=== PATIENT | female | born 1930 | race Caucasian/White ===

== ENCOUNTER → 2016-09-28 | Outpatient (CLI) | payer OTHER ==
[~2016-09-28] MED LIST: ALEN70TA4 PO; ASPI81TA28 PO; CLOP1TAB5 PO; DIPH1CAP34 PO; DOXY100C2 PO; ERGO500011 PO; ESCI1TAB6 PO; LORA-741 PO; LRS10 PO; LXP10 PO; OXYC1TAB3 PO; PRAV10TA39 PO; TRAM-10 PO; TRAZ1TAB52 PO; VLTG EXT; VNTHFA/IN INH
--- NOTE | 2016-09-28 15:13 | DIAGNOSTIC IMAGING REPORT ---
CHEST 2 VIEWS ROUTINE CLINICAL HISTORY: Upper respiratory tract infection COMPARISON STUDY: January 27, 2016 FINDINGS: The cardiac and sternal contours are normal. The chest has an emphysematous configuration. There is a scoliosis. There is no focal pulmonary consolidation. There are no pleural effusions. There is no failure. There is been interval resolution of the previously identified upper lung zone opacities.[ IMPRESSION: No active disease in the chest. Electronically signed by: Good Pavon M.D. 09/28/2016 3:12 PM
== END | disposition home or self-care (01) ==
LOC: C.RADPV 14:47
PROVIDERS: ATTEND Internal Medicine Critical Care Medicine
DX: J06.9 Acute upper respiratory infection, unspecified (principal); R05 Cough

== ENCOUNTER 2017-04-24 13:04 | Emergency (ER) | payer OTHER ==
[~2017-04-24 13:04] MED LIST changes: -ASPI81TA28 PO; -CLOP1TAB5 PO; -DIPH1CAP34 PO; -DOXY100C2 PO; -ERGO500011 PO; -ESCI1TAB6 PO; -LXP10 PO; -OXYC1TAB3 PO; -VLTG EXT; -VNTHFA/IN INH
[2017-04-24 13:07] VITALS: TEMP 36.7; Ht 154.9 cm
[2017-04-24] MEDS ORDERED: ONDANSETRON INJ 2 MG/ML 2 ML VIAL IV STA ×2 (13:54→15:01)
[2017-04-24] MEDS ORDERED: SODIUM CHLORIDE 0.9% 1000ML 1,000 ML IV STA ×2 (13:54)
[2017-04-24 14:00] VITALS: O2SAT 98
[2017-04-24] MEDS ORDERED: MoRPHine SULFATE 4 MG/ML 1 ML CARP\\VIAL IV PRN (14:00)
[2017-04-24 14:02] LABS: BASO % 0.2 %; BASO ABS # 0.02 K/uL (0-0.2); COMPLETE YES; EOS % 0.1 %; HEMATOCRIT 34.8 % (37-47); IG% 0.1 %; LYMPH % 10.6 %; LYMPH ABS # 0.85 K/uL (1.2-3.4); MEAN CELL VOLUME 95.3 fL (80-100); MEAN CORPUSCULAR HEMOGLOBIN 31.8 pg (25-34); MEAN CORPUSCULAR HGB CONC 33.3 g/dl (32-36); MEAN PLATELET VOLUME 9.4 fL (7.4-10.4); MONO % 2.7 %; NEUT % 86.3 %; PLATELET COUNT 275 K/uL (130-400); RED BLOOD COUNT 3.65 M/uL (4.2-5.4); WHITE BLOOD COUNT 8.03 K/uL (4.8-10.8)
[2017-04-24 14:12] LABS: INR 1.1 (0.9-1.1); PARTIAL THROMBOPLASTIN RATIO 1.1; PROTHROMBIN TIME (PATIENT) 11.9 SECONDS (9.0-12.0)
[2017-04-24] MEDS ORDERED: ASPI81TA28 PO (14:13)
[2017-04-24] MEDS ORDERED: ESCI1TAB6 PO (14:13)
[2017-04-24] MEDS ORDERED: DIPH1CAP34 PO (14:13)
--- NOTE | 2017-04-24 14:23 | EMERGENCY ROOM VISIT NOTE ---
History Report prepared by Kit: Daya Gerardo Under the Supervision of: Dr. Anastacio Zhang D.O. First contact with patient: 13:47 Chief Complaint: PAIN (GENERALIZED) Stated Complaint: POSSIBLE HEART ATTACK History of Present Illness The patient is an 87 year old female who presents to the Emergency Room with complaints of worsening back pain starting 3 weeks ago. The patient has a history of back pain and has followed with her PCP for it. She was given pills that are not helping. She describes her pain as muscle spasms down the left side of her back. She is having nausea and vomiting which she does not usually get with her back pain. Her back has also been swelling up. She also had some pain across her chest earlier today. She currently feels a pressure on her chest. She also reports feeling more weakness than usual, dizziness, and SOB with moving around. She denies any pain or swelling in the legs or abdominal pain. She has been unable to eat because of her nausea and vomiting. She denies any recent falls. She has a history of aortic valve problems and has had an echo in the past. She was told that she might require surgery and was instructed to call a doctor if he developed any dizziness or other symptoms. She recently traveled to [place]. She has a history of DVT. She admits to tobacco use. She denies any alcohol use. She has had a cholecystectomy in the past. She denies any history of kidney stones. She has not had a stress test or heart catheterizations. Source of History: patient, family Onset: 3 weeks ago Position: back Quality: other (spasm) Timing: worsening Associated Symptoms: + chest pain, + SOB, + nausea, + vomiting, No abdominal pain Note: Pt reports back swelling. Pt denies pain/swelling in the legs. Review of Systems See HPI for pertinent positives & negatives. A total of 10 systems reviewed and were otherwise negative. Past Medical & Surgical Medical Problems: (1) Bleeding (2) H/O emphysema Family History Heart disease Social History Smoking Status: Current Every Day Smoker Marital Status: Occupation Status: retired Current/Historical Medications Scheduled Aspirin (Aspirin Ec), 81 MG PO DAILY Baclofen (Baclofen), 5 MG PO TID Diphenhydramine Hcl (Diphenhydramine Hcl), 50 MG PO HS Escitalopram Oxalate (Lexapro), 5 MG PO DAILY Lorazepam (Ativan), 0.5 MG PO BID Pravastatin Sodium (Pravastatin Sodium), 10 MG PO HS Scheduled PRN Oxycodone Immediate Rel Tab (Roxicodone Ir), 1-2 TAB PO Q4H PRN for Severe Pain Allergies Coded Allergies: Adhesives (Verified Allergy, Intermediate, red, irritated skin, 04/24/17) Physical Exam Vital Signs Date Time Temp Pulse Resp B/P (MAP) Pulse Ox O2 Delivery O2 Flow Rate FiO2 04/24/17 18:24 74 18 133/60 96 04/24/17 17:33 76 04/24/17 16:42 85 22 129/77 93 Room Air 04/24/17 15:00 68 18 180/60 98 Room Air 04/24/17 14:00 98 Room Air 04/24/17 13:59 66 22 146/57 98 Room Air 04/24/17 13:32 69 04/24/17 13:07 36.7 81 22 147/70 99 Room Air Physical Exam GENERAL: Patient is awake, alert, somewhat anxious appearing and uncomfortable. EYES: The conjunctivae are clear. The pupils are round and reactive. EARS, NOSE, MOUTH AND THROAT: The nose is without any evidence of any deformity. Mucous membranes are moist tongue is midline NECK: The neck is nontender and supple. RESPIRATORY: Lung sounds diminished throughout, tachypnea but no conversational dyspnea appreciated. CARDIOVASCULAR: Regular rate and rhythm noted to auscultation, systolic murmur appreciated. GASTROINTESTINAL: The abdomen is soft. Bowel sounds are present in all quadrants. Abdomen is nontender BACK: Left sided flank tenderness to percussion, no midline tenderness was noted, scoliosis noted with muscle spasms on the left. MUSCULOSKELETAL/EXTREMITIES: There is no evidence of gross deformity full range of motion is noted in the hips and shoulders SKIN: There is no obvious evidence of any rash. There are no petechiae, pallor or cyanosis noted. NEUROLOGIC: Patient is awake alert and oriented x3 strength is symmetric patellar reflexes are 2+ bilaterally Medical Decision & Procedures ER Provider Diagnostic Interpretation: X-ray results as stated below per interpretation by me and the radiologist. Radiology results as stated below per my review and radiologist interpretation: CHEST ONE VIEW PORTABLE CLINICAL HISTORY: Abdominal pain. COMPARISON STUDY: Chest radiograph September 28, 2016. FINDINGS: Lung volumes are normal. There is no pneumothorax or pleural effusion. There is no consolidation to suggest pneumonia. Cardiac size is normal. Mediastinal contours are normal. There is no evidence of pulmonary edema. IMPRESSION: No acute cardiopulmonary findings. Electronically signed by: Shiraz Jaquez M.D. 04/24/2017 3:00 PM Dictated Date/Time: 04/24/2017 2:[address] OF THE ABDOMEN AND PELVIS WITHOUT CONTRAST CLINICAL HISTORY: Left flank pain. COMPARISON STUDY: PET/CT January 15, 2016 and abdominal ultrasound June 12, 2016. TECHNIQUE: Axial images of the abdomen and pelvis were obtained without IV contrast. Images were reviewed in the axial, sagittal, and coronal planes. A dose lowering technique was utilized adhering to the principles of ALARA. FINDINGS: Evaluation of the abdomen and pelvis is significantly compromised given lack of contrast and paucity of intra-abdominal fat. Mild biliary ductal dilatation is unchanged from earlier studies and likely related to prior cholecystectomy. A 1.5 cm lesion arising from the upper pole of the left kidney measures above water attenuation but this is unchanged from earlier studies. This may reflect a hyperdense cyst. Low attenuation bilateral adrenal nodules are unchanged. These are benign. There is no hydronephrosis. No urinary calculi are identified. A small hyperdensity within the midpole of the right kidney is noted. This does not appear to represent a calculus. There is colonic diverticulosis. Evaluation for acute diverticulitis is difficult on this exam at there is no convincing evidence for acute diverticulitis. There is no free fluid. There is no abscess. There is moderate distention of the bladder. There are several old lumbar spine compression fractures. There is no pneumatosis, free air or portal venous gas. IMPRESSION: 1. No acute process identified within the abdomen or pelvis although evaluation is significantly compromised given lack of contrast and paucity of intra-abdominal fat. 2. Colonic diverticulosis. No evidence for acute diverticulitis although sensitivity is greatly diminished on this exam. No bowel obstruction. 3. Moderate distention of the bladder. Electronically signed by: Shiraz Jaquez M.D. 04/24/2017 4:00 PM Dictated Date/Time: 04/24/2017 3:47 PM Laboratory Results 04/24/17 13:20 Red Blood Count 3.65, Mean Corpuscular Volume 95.3, Mean Corpuscular Hemoglobin 31.8, Mean Corpuscular Hemoglobin Concent 33.3, Mean Platelet Volume 9.4, Neutrophils (%) (Auto) 86.3, Lymphocytes (%) (Auto) 10.6, Monocytes (%) (Auto) 2.7, Eosinophils (%) (Auto) 0.1, Basophils (%) (Auto) 0.2, Neutrophils # (Auto) 6.92, Lymphocytes # (Auto) 0.85, Monocytes # (Auto) 0.22, Eosinophils # (Auto) 0.01, Basophils # (Auto) 0.02 04/24/17 13:20 Test 04/24/17 13:20 04/24/17 16:36 White Blood Count 8.03 K/uL (4.8-10.8) Red Blood Count 3.65 M/uL (4.2-5.4) Hemoglobin 11.6 g/dL (12.0-16.0) Hematocrit 34.8 % (37-47) Mean Corpuscular Volume 95.3 fL (80-100) Mean Corpuscular Hemoglobin 31.8 pg (25-34) Mean Corpuscular Hemoglobin Concent 33.3 g/dl (32-36) Platelet Count 275 K/uL (130-400) Mean Platelet Volume 9.4 fL (7.4-10.4) Neutrophils (%) (Auto) 86.3 % Lymphocytes (%) (Auto) 10.6 % Monocytes (%) (Auto) 2.7 % Eosinophils (%) (Auto) 0.1 % Basophils (%) (Auto) 0.2 % Neutrophils # (Auto) 6.92 K/uL (1.4-6.5) Lymphocytes # (Auto) 0.85 K/uL (1.2-3.4) Monocytes # (Auto) 0.22 K/uL (0.11-0.59) Eosinophils # (Auto) 0.01 K/uL (0-0.5) Basophils # (Auto) 0.02 K/uL (0-0.2) RDW Standard Deviation 55.6 fL (36.4-46.3) RDW Coefficient of Variation 15.8 % (11.5-14.5) Immature Granulocyte % (Auto) 0.1 % Immature Granulocyte # (Auto) 0.01 K/uL (0.00-0.02) Prothrombin Time 11.9 SECONDS (9.0-12.0) Prothromb Time International Ratio 1.1 (0.9-1.1) Activated Partial Thromboplast Time 28.8 SECONDS (21.0-31.0) Partial Thromboplastin Ratio 1.1 Anion Gap 8.0 mmol/L (3-11) Estimated GFR () 52.3 Estimated GFR (Non- 45.1 BUN/Creatinine Ratio 12.6 (10-20) Calcium Level 9.4 mg/dl (8.5-10.1) Total Bilirubin 0.4 mg/dl (0.2-1) Direct Bilirubin 0.1 mg/dl (0-0.2) Aspartate Amino Transf (AST/SGOT) 25 U/L (15-37) Alanine Aminotransferase (ALT/SGPT) 22 U/L (12-78) Alkaline Phosphatase 78 U/L (45-117) Total Creatine Kinase 154 U/L (26-192) Creatine Kinase MB 3.8 ng/ml (0.5-3.6) Creatine Kinase MB Ratio 2.5 (0-3.0) Troponin I < 0.015 ng/ml (0-0.045) Total Protein 7.2 gm/dl (6.4-8.2) Albumin 4.0 gm/dl (3.4-5.0) Amylase Level 63 U/L (25-115) Lipase 173 U/L (73-393) Urine Color YELLOW Urine Appearance CLEAR (CLEAR) Urine pH 5.5 (4.5-7.5) Urine Specific [place] 1.012 (1.000-1.030) Urine Protein NEG (NEG) Urine Glucose (UA) NEG (NEG) Urine Ketones NEG (NEG) Urine Occult Blood 2+ (NEG) Urine Nitrite NEG (NEG) Urine Bilirubin NEG (NEG) Urine Urobilinogen NEG (NEG) Urine Leukocyte Esterase NEG (NEG) Urine WBC (Auto) 0 /hpf (0-5) Urine RBC (Auto) 0-4 /hpf (0-4) Urine Hyaline Casts (Auto) 0 /lpf (0-5) Urine Epithelial Cells (Auto) 0-5 /lpf (0-5) Urine Bacteria (Auto) NEG (NEG) Laboratory results per my review. Medications Administered Medications (Trade) Dose Ordered Sig/Archana Route Start Time Stop Time Status Last Admin Dose Admin Sodium Chloride 1,000 ml @ 999 mls/hr Q1H1M STAT IV 04/24/17 13:54 04/24/17 14:54 DC 04/24/17 14:12 999 MLS/HR Ondansetron HCl (Zofran Inj) 4 mg NOW STAT IV 04/24/17 13:54 04/24/17 13:55 DC 04/24/17 14:11 4 MG Morphine Sulfate (MoRPHine SULFATE INJ) 4 mg Q15M PRN IV 04/24/17 14:00 04/24/17 18:48 DC 04/24/17 14:11 4 MG Ondansetron HCl (Zofran Inj) 4 mg NOW STAT IV 04/24/17 15:01 04/24/17 15:03 DC 04/24/17 15:10 4 MG Oxycodone HCl (Roxicodone Immediate Rel 5MG Home Pack) 1 homepack UD ONCE PO 04/24/17 18:30 04/24/17 18:31 DC 04/24/17 18:30 1 HOMEPACK ECG Indication: chest pain Rate (beats per minute): 67 Rhythm: normal sinus Findings: Q waves (Anterior), ST depression (Lateral, Inferior), no ectopy Comparison ECG Date: 22-Jan-2016 Change: no significant change ED Course 1349: The patient was evaluated in room A2. A complete history and physical examination were performed. 1354: NSS 1000 ml @ 200 mls/hr IV, Zofran Inj 4 mg IV, NSS 1000 ml @ 999 mls/hr IV. 1400: Morphine Sulfate 4 mg IV. 1501: Zofran Inj 4 mg IV. 1620: I reevaluated the patient. She is resting comfortably. We are waiting on her urine. 1738: Upon reevaluation, the patient is resting comfortably. I discussed the results and treatment plan with her. She verbalized agreement of the treatment plan. She was discharged home. 1830: Oxycodone HCl 1 homepack PO. Medical Decision Prior records/ancillary studies reviewed. Triage Nursing notes reviewed. Additional history obtained from family. The patient's history was concerning for back pain. Differential diagnosis: Etiologies such as musculoskeletal, disc herniation, fracture, aortic disease, metastatic disease, cord compression, discitis, infection, renal colic, gastrointestinal, acute exacerbation of chronic back pain, sciatica, cauda equina, as well as others were entertained. The patient is an 87-year-old female who presented to the emergency department for an evaluation of pain. The patient has been noticing left flank pain which is associated with muscle spasm. She states that the pain comes into her chest. The patient states that she's had these symptoms for quite some time but they' ve worsened recently. The patient was not hypoxic or tachycardic. The patient's pain did not appear to be pleuritic in nature. I discussed the patient's laboratory radiographic studies with her. She doesn't a history of aortic stenosis. She had some EKG changes which could be subtle in nature and I do not feel they're related to ischemia rather I feel they're likely related to the patient's valvular heart disease. The patient was treated with IV fluids IV pain medicine and IV antiemetics. On subsequent reevaluation she was feeling much better. She was encouraged to rest and avoid any strenuous activity. She was also encouraged to continue all medications as prescribed. She was also encouraged to follow-up with her primary care physician as soon as possible return to the emergency department immediately if symptoms change worsen or the need arises. Medication Reconcilliation Current Medication List: was personally reviewed by me Blood Pressure Screening Patient's blood pressure: Normal blood pressure Blood pressure disposition: Did not require urgent referral Impression Primary Impression: Back pain Additional Impressions: Chest pain Heart murmur Scribe Attestation The scribe's documentation has been prepared under my direction and personally reviewed by me in its entirety. I confirm that the note above accurately reflects all work, treatment, procedures, and medical decision making performed by me. Departure Information Dispostion Home / Self-Care Prescriptions Oxycodone Immediate Rel Tab (ROXICODONE IR) 5 Mg Tab 1-2 TAB PO Q4H Y for Severe Pain, #24 TAB Prov: Anastacio Zhang, DO 04/24/17 Referrals Leonid Hayes MD Forms HOME CARE DOCUMENTATION FORM, IMPORTANT VISIT INFORMATION, WORK / SCHOOL INSTRUCTIONS Patient Instructions ED Low Back Pain Injury, My [facility] Additional Instructions Call your primary care physician as well as her primary care advocate to schedule a follow-up appointment. Rest and avoid any strenuous activity. Continue all medications as prescribed. Return to the emergency department immediately if symptoms change worsen or the need arises. Problem Qualifiers Primary Impression: Back pain Back pain location: thoracic back pain Chronicity: chronic Back pain laterality: left Qualified Codes: M54.6 - Pain in thoracic spine; G89.29 - Other chronic pain Additional Impressions: Chest pain Chest pain type: unspecified Qualified Codes: R07.9 - Chest pain, unspecified
[2017-04-24 14:25] LABS: ALT/SGPT 22 U/L (12-78); AMYLASE 63 U/L (25-115); AST/SGOT 25 U/L (15-37); BLOOD UREA NITROGEN 14 mg/dl (7-18); BUN/CREATININE RATIO 12.6 (10-20); CALCIUM 9.4 mg/dl (8.5-10.1); CARBON DIOXIDE 27 mmol/L (21-32); CHLORIDE 101 mmol/L (98-107); GLUCOSE 171 mg/dl (70-99); POTASSIUM 4.4 mmol/L (3.5-5.1); SODIUM 136 mmol/L (136-145)
[2017-04-24 14:31] LABS: ALKALINE PHOSPHATASE 78 U/L (45-117); CKMB/CK RATIO 2.5 (0-3.0)
--- NOTE | 2017-04-24 15:02 | DIAGNOSTIC IMAGING REPORT ---
CHEST ONE VIEW PORTABLE CLINICAL HISTORY: Abdominal pain. COMPARISON STUDY: Chest radiograph September 28, 2016. FINDINGS: Lung volumes are normal. There is no pneumothorax or pleural effusion. There is no consolidation to suggest pneumonia. Cardiac size is normal. Mediastinal contours are normal. There is no evidence of pulmonary edema. IMPRESSION: No acute cardiopulmonary findings. Electronically signed by: Shiraz Jaquez M.D. 04/24/2017 3:00 PM Dictated Date/Time: 04/24/2017 2:59 PM
--- NOTE | 2017-04-24 16:01 | DIAGNOSTIC IMAGING REPORT ---
CT OF THE ABDOMEN AND PELVIS WITHOUT CONTRAST CLINICAL HISTORY: Left flank pain. COMPARISON STUDY: PET/CT January 15, 2016 and abdominal ultrasound June 12, 2016. TECHNIQUE: Axial images of the abdomen and pelvis were obtained without IV contrast. Images were reviewed in the axial, sagittal, and coronal planes. A dose lowering technique was utilized adhering to the principles of ALARA. FINDINGS: Evaluation of the abdomen and pelvis is significantly compromised given lack of contrast and paucity of intra-abdominal fat. Mild biliary ductal dilatation is unchanged from earlier studies and likely related to prior cholecystectomy. A 1.5 cm lesion arising from the upper pole of the left kidney measures above water attenuation but this is unchanged from earlier studies. This may reflect a hyperdense cyst. Low attenuation bilateral adrenal nodules are unchanged. These are benign. There is no hydronephrosis. No urinary calculi are identified. A small hyperdensity within the midpole of the right kidney is noted. This does not appear to represent a calculus. There is colonic diverticulosis. Evaluation for acute diverticulitis is difficult on this exam at there is no convincing evidence for acute diverticulitis. There is no free fluid. There is no abscess. There is moderate distention of the bladder. There are several old lumbar spine compression fractures. There is no pneumatosis, free air or portal venous gas. IMPRESSION: 1. No acute process identified within the abdomen or pelvis although evaluation is significantly compromised given lack of contrast and paucity of intra-abdominal fat. 2. Colonic diverticulosis. No evidence for acute diverticulitis although sensitivity is greatly diminished on this exam. No bowel obstruction. 3. Moderate distention of the bladder. Electronically signed by: Shiraz Jaquez M.D. 04/24/2017 4:00 PM Dictated Date/Time: 04/24/2017 3:47 PM
[2017-04-24 16:56] LABS: URINE APPEARANCE CLEAR (CLEAR); URINE BILIRUBIN NEG (NEG); URINE COLOR YELLOW; URINE EPITHELIAL CELL AUTO 0-5 /lpf (0-5); URINE NITRITE NEG (NEG); URINE PH 5.5 (4.5-7.5); URINE SPECIFIC GRAVITY 1.012 (1.000-1.030); UROBILINOGEN NEG (NEG)
[2017-04-24 17:17] LABS: MANUAL MICROSCOPIC REQUIRED? NO; REVIEW REQ? NO
[2017-04-24] MEDS ORDERED: OXYC1TAB3 PO (17:49)
[2017-04-24 18:24] VITALS: BP 133/60; PULSE 74; O2SAT 96
[2017-04-24] MEDS ORDERED: OXYCODONE IR HOME PACK PO ONE (18:30)
== END 2017-04-24 18:26 | disposition home or self-care (01) ==
LOC: C.EDB 13:05 → C.EDA 18:26
DX: M54.6 Pain in thoracic spine (principal); G89.29 Other chronic pain; R07.9 Chest pain, unspecified; R11.2 Nausea with vomiting, unspecified; Z86.718 Personal history of other venous thrombosis and embolism; F17.210 Nicotine dependence, cigarettes, uncomplicated; Z82.49 Family history of ischemic heart disease and other diseases of the circulatory system; Z79.82 Long term (current) use of aspirin; Z79.899 Other long term (current) drug therapy

== ENCOUNTER → 2017-05-03 | Outpatient (CLI) | payer OTHER ==
[~2017-05-03] MED LIST changes: -ALEN70TA4 PO; +ASPI81TA28 PO; +DIPH1CAP34 PO; +ESCI1TAB6 PO; +OXYC1TAB3 PO; -TRAM-10 PO; -TRAZ1TAB52 PO
[2017-05-03 12:34] LABS: BASO % 0.8 %; BASO ABS # 0.05 K/uL (0-0.2); COMPLETE YES; EOS % 1.4 %; HEMATOCRIT 35.8 % (37-47); IG% 0.2 %; LYMPH % 28.8 %; LYMPH ABS # 1.86 K/uL (1.2-3.4); MEAN CELL VOLUME 96.5 fL (80-100); MEAN CORPUSCULAR HEMOGLOBIN 31.3 pg (25-34); MEAN CORPUSCULAR HGB CONC 32.4 g/dl (32-36); MEAN PLATELET VOLUME 9.9 fL (7.4-10.4); MONO % 8.7 %; NEUT % 60.1 %; PLATELET COUNT 303 K/uL (130-400); RED BLOOD COUNT 3.71 M/uL (4.2-5.4); WHITE BLOOD COUNT 6.46 K/uL (4.8-10.8)
== END | disposition home or self-care (01) ==
LOC: C.LABPVFM 09:32
PROVIDERS: ATTEND Nurse Practitioner Family
DX: D64.9 Anemia, unspecified (principal)

== ENCOUNTER → 2017-06-23 | Outpatient (CLI) | payer OTHER ==
[2017-06-23 12:25] LABS: BASO % 0.4 %; BASO ABS # 0.03 K/uL (0-0.2); COMPLETE YES; EOS % 0.5 %; HEMATOCRIT 31.6 % (37-47); IG% 0.3 %; LYMPH % 23.9 %; LYMPH ABS # 1.82 K/uL (1.2-3.4); MEAN CELL VOLUME 97.5 fL (80-100); MEAN CORPUSCULAR HEMOGLOBIN 30.9 pg (25-34); MEAN CORPUSCULAR HGB CONC 31.6 g/dl (32-36); MEAN PLATELET VOLUME 9.4 fL (7.4-10.4); MONO % 7.9 %; PLATELET COUNT 357 K/uL (130-400); RED BLOOD COUNT 3.24 M/uL (4.2-5.4); WHITE BLOOD COUNT 7.61 K/uL (4.8-10.8)
== END | disposition home or self-care (01) ==
LOC: C.LABPVFM 09:22
PROVIDERS: ATTEND Nurse Practitioner Family
DX: D64.9 Anemia, unspecified (principal)

== ENCOUNTER → 2017-06-25 | Outpatient (CLI) | payer OTHER ==
[2017-06-25 12:50] LABS: FERRITIN 10.8 ng/ml (8.0-388.0)
--- NOTE | 2017-06-30 13:01 | CODING QUERY MEDICAL NECESSITY ---
SUPPORTING DIAGNOSIS NEEDED Harpal CARLTON, A supporting diagnosis is required for the test/procedure performed on this patient in order for us to be reimbursed by the patient's insurance. Please provide a supporting diagnosis for the following test/procedure listed below next to the test name along with your signature. *If there is no additional diagnosis for this patient that would support the following test/procedure please document that below next to the test/procedure. Test(s)/Procedure(s) that require a supporting diagnosis: * ([id number]) B12 VITAMIN LEVEL DIAGNOSIS: * ([id number]) FOLATE LEVEL DIAGNOSIS: DATE OF SERVICE: 06/25/17 Provider Signature: Date: Thank you [facility] Information Management Once completed, please kindly fax back to [phone] For questions please call [phone]
== END | disposition home or self-care (01) ==
LOC: C.LABPVFM 08:17
PROVIDERS: ATTEND Nurse Practitioner Family
DX: D64.9 Anemia, unspecified (principal)

== ENCOUNTER → 2017-07-17 | Outpatient (CLI) | payer OTHER ==
[~2017-07-17] MED LIST changes: +CLOP1TAB5 PO; +DOXY100C2 PO; +ERGO500011 PO; +LXP10 PO; +VLTG EXT; +VNTHFA/IN INH
[2017-07-17 13:50] LABS: ALB/GLOB RATIO 1.1 (0.9-2); ALKALINE PHOSPHATASE 103 U/L (45-117); ALT/SGPT 23 U/L (12-78); AST/SGOT 23 U/L (15-37); BLOOD UREA NITROGEN 26 mg/dl (7-18); BUN/CREATININE RATIO 27.9 (10-20); CALCIUM 9.9 mg/dl (8.5-10.1); CARBON DIOXIDE 27 mmol/L (21-32); CHLORIDE 105 mmol/L (98-107); CREATININE 0.91 mg/dl (0.60-1.20); GLUCOSE 87 mg/dl (70-99); POTASSIUM 4.1 mmol/L (3.5-5.1); SODIUM 139 mmol/L (136-145)
== END | disposition home or self-care (01) ==
LOC: C.LABPVFM 09:09
PROVIDERS: ATTEND Orthopaedic Surgery
DX: M54.9 Dorsalgia, unspecified (principal); M89.9 Disorder of bone, unspecified; M94.9 Disorder of cartilage, unspecified

== ENCOUNTER → 2017-10-21 | Outpatient (CLI) | payer OTHER ==
[~2017-10-21] MED LIST changes: -ASPI81TA28 PO; -DIPH1CAP34 PO; -ESCI1TAB6 PO
[2017-10-21 12:47] LABS: BASO % 0.2 %; BASO ABS # 0.02 K/uL (0-0.2); EOS % 0.1 %; EOS ABS # 0.01 K/uL (0-0.5); HEMATOCRIT 28.6 % (37-47); HEMOGLOBIN 8.9 g/dL (12.0-16.0); IG# 0.02 K/uL (0.00-0.02); LYMPH % 9.1 %; LYMPH ABS # 0.96 K/uL (1.2-3.4); MEAN CELL VOLUME 89.1 fL (80-100); MEAN CORPUSCULAR HEMOGLOBIN 27.7 pg (25-34); MEAN CORPUSCULAR HGB CONC 31.1 g/dl (32-36); MONO % 3.7 %; MONO ABS # 0.39 K/uL (0.11-0.59); NEUT % 86.7 %; PLATELET COUNT 425 K/uL (130-400); RED CELL DISTRIBUTION WIDTH CV 19.1 % (11.5-14.5); RED CELL DISTRIBUTION WIDTH SD 57.4 fL (36.4-46.3)
[2017-10-21 13:24] LABS: ALBUMIN 3.4 gm/dl (3.4-5.0); ALT/SGPT 22 U/L (12-78); AST/SGOT 28 U/L (15-37); BLOOD UREA NITROGEN 15 mg/dl (7-18); CALCIUM 8.6 mg/dl (8.5-10.1); CARBON DIOXIDE 27 mmol/L (21-32); CREATININE 0.92 mg/dl (0.60-1.20); GLUCOSE 100 mg/dl (70-99); POTASSIUM 4.9 mmol/L (3.5-5.1); SODIUM 134 mmol/L (136-145)
[2017-10-21 13:41] LABS: ALKALINE PHOSPHATASE 126 U/L (45-117); TOTAL PROTEIN 6.8 gm/dl (6.4-8.2)
== END | disposition home or self-care (01) ==
LOC: C.LABPVFM 08:49
PROVIDERS: ATTEND Nurse Practitioner Family
DX: R63.4 Abnormal weight loss (principal); D64.9 Anemia, unspecified; R19.7 Diarrhea, unspecified; E87.6 Hypokalemia

== ENCOUNTER → 2017-10-21 | Outpatient (CLI) | payer OTHER ==
[~2017-10-21] MED LIST changes: +OPTIRAY 320 IV PRN
--- NOTE | 2017-10-21 16:25 | DIAGNOSTIC IMAGING REPORT ---
ABDOMEN AND PELVIS CT WITH IV CONTRAST CT DOSE: 226.34 mGy.cm HISTORY: Acute weight loss with diarrhea R63.4 Weight lossD64.9 DutleyW41.7 EtzkpfgvX91.6 HypokalemiaCTS7. History of prior appendectomy. TECHNIQUE: Multiaxial CT images of the abdomen and pelvis were performed following the use of intravenous contrast. 93 mL Optiray 320 IV contrast administered. A dose lowering technique was utilized adhering to the principles of ALARA. COMPARISON STUDY: CT abdomen and pelvis 04/24/2017. FINDINGS: Small right pleural effusion. Emphysema with subsegmental consolidative opacities of the dependent right lower lobe suggesting atelectasis. No pneumatosis or pneumoperitoneum. Imaged inferior cardiac chambers are mildly enlarged. Coronary arterial disease. Prior cholecystectomy. Mild intrahepatic and extrahepatic biliary ductal dilation is likely secondary to postcholecystectomy state. The common bile duct measures 9 mm transversely. Liver is otherwise unremarkable. Spleen, and pancreas are unremarkable. 2.0 x 1.5 cm left adrenal adenoma is unchanged. 1.4 x 1.47 m right adrenal adenoma is also unchanged. Subcentimeters low attenuating lesions of the kidneys bilaterally too small to characterize suggesting cyst measuring up to 5 mm. Renal vascular calcifications are present bilaterally. No renal calculi or hydronephrosis. Urinary bladder is mildly distended. Uterus and adnexa are unremarkable. Extensive atherosclerosis of the aorta with tortuosity. No pathologic adenopathy identified. Moderate sized duodenal diverticulum. No bowel obstruction identified. Fluid-filled nondilated loops of small bowel in the lower abdomen and pelvis. Moderate wall thickening of the rectum and distal sigmoid is noted. Mild colonic diverticulosis without definite diverticulitis. Fluid-filled loops of large bowel are also seen. Diastases recti. Soft tissues are unremarkable. The bones appear moderately demineralized and appear intact. Levoscoliosis of the lumbar spine. Calcification of the disc space is noted. IMPRESSION: 1. Moderate wall thickening of the rectum and distal sigmoid colon is suspicious for mild colitis/proctitis. Correlate with clinical exam and patient history. 2. Mild colonic diverticulosis without evidence of acute diverticulitis. 3. No bowel obstruction. 4. Small right pleural effusion with probable bibasilar atelectasis. 5. Additional findings as above. Electronically signed by: Reggie Patel M.D. 10/21/2017 4:23 PM Dictated Date/Time: 10/21/2017 3:53 PM
== END | disposition home or self-care (01) ==
LOC: C.CTS 15:17
PROVIDERS: ATTEND Nurse Practitioner
DX: E87.6 Hypokalemia (principal); D64.9 Anemia, unspecified; R63.4 Abnormal weight loss; R19.7 Diarrhea, unspecified

== ENCOUNTER → 2017-10-27 | Outpatient (CLI) | payer OTHER ==
[~2017-10-27] MED LIST changes: -OPTIRAY 320 IV PRN; -OXYC1TAB3 PO
[2017-10-27 12:35] LABS: BASO % 0.6 %; BASO ABS # 0.04 K/uL (0-0.2); EOS % 0.3 %; EOS ABS # 0.02 K/uL (0-0.5); HEMATOCRIT 30.3 % (37-47); HEMOGLOBIN 9.4 g/dL (12.0-16.0); IG# 0.01 K/uL (0.00-0.02); LYMPH % 23.6 %; LYMPH ABS # 1.53 K/uL (1.2-3.4); MEAN CELL VOLUME 92.4 fL (80-100); MEAN CORPUSCULAR HEMOGLOBIN 28.7 pg (25-34); MEAN PLATELET VOLUME 9.1 fL (7.4-10.4); MONO % 5.7 %; MONO ABS # 0.37 K/uL (0.11-0.59); NEUT % 69.6 %; NEUT ABS # 4.51 K/uL (1.4-6.5); PLATELET COUNT 394 K/uL (130-400); RED CELL DISTRIBUTION WIDTH CV 21.6 % (11.5-14.5); RED CELL DISTRIBUTION WIDTH SD 72.1 fL (36.4-46.3); WHITE BLOOD COUNT 6.48 K/uL (4.8-10.8)
[2017-10-27 13:15] LABS: ALBUMIN 3.5 gm/dl (3.4-5.0); ALT/SGPT 18 U/L (12-78); AST/SGOT 18 U/L (15-37); BLOOD UREA NITROGEN 9 mg/dl (7-18); CALCIUM 8.5 mg/dl (8.5-10.1); CARBON DIOXIDE 25 mmol/L (21-32); CREATININE 0.82 mg/dl (0.60-1.20); GLUCOSE 94 mg/dl (70-99); POTASSIUM 4.1 mmol/L (3.5-5.1); SODIUM 133 mmol/L (136-145)
[2017-10-27 13:18] LABS: ALKALINE PHOSPHATASE 94 U/L (45-117); TOTAL PROTEIN 6.9 gm/dl (6.4-8.2)
== END | disposition home or self-care (01) ==
LOC: C.LABPVFM 08:59
PROVIDERS: ATTEND Nurse Practitioner Family
DX: D64.9 Anemia, unspecified (principal); R19.7 Diarrhea, unspecified; E87.6 Hypokalemia

== ENCOUNTER → 2017-11-24 | Outpatient (CLI) | payer OTHER ==
[2017-11-24 12:18] LABS: BASO % 0.5 %; BASO ABS # 0.03 K/uL (0-0.2); EOS % 0.4 %; EOS ABS # 0.02 K/uL (0-0.5); HEMATOCRIT 36.2 % (37-47); HEMOGLOBIN 11.3 g/dL (12.0-16.0); IG# 0.01 K/uL (0.00-0.02); LYMPH % 25.6 %; LYMPH ABS # 1.42 K/uL (1.2-3.4); MEAN CELL VOLUME 93.3 fL (80-100); MEAN CORPUSCULAR HEMOGLOBIN 29.1 pg (25-34); MEAN CORPUSCULAR HGB CONC 31.2 g/dl (32-36); MEAN PLATELET VOLUME 9.7 fL (7.4-10.4); MONO % 7.6 %; MONO ABS # 0.42 K/uL (0.11-0.59); NEUT % 65.7 %; NEUT ABS # 3.65 K/uL (1.4-6.5); PLATELET COUNT 294 K/uL (130-400); RED CELL DISTRIBUTION WIDTH CV 20.3 % (11.5-14.5); RED CELL DISTRIBUTION WIDTH SD 68.8 fL (36.4-46.3); WHITE BLOOD COUNT 5.55 K/uL (4.8-10.8)
[2017-11-24 13:21] LABS: BLOOD UREA NITROGEN 22 mg/dl (7-18); CALCIUM 9.2 mg/dl (8.5-10.1); CARBON DIOXIDE 31 mmol/L (21-32); CREATININE 0.96 mg/dl (0.60-1.20); GLUCOSE 89 mg/dl (70-99); POTASSIUM 4.6 mmol/L (3.5-5.1); SODIUM 134 mmol/L (136-145)
== END | disposition home or self-care (01) ==
LOC: C.LABPVFM 08:56
PROVIDERS: ATTEND Nurse Practitioner Family
DX: D64.9 Anemia, unspecified (principal); E87.6 Hypokalemia

== ENCOUNTER → 2018-01-25 | Outpatient (CLI) | payer OTHER ==
[2018-01-25 13:00] LABS: BASO % 0.5 %; BASO ABS # 0.03 K/uL (0-0.2); EOS % 0.5 %; EOS ABS # 0.03 K/uL (0-0.5); HEMOGLOBIN 12.6 g/dL (12.0-16.0); IG# 0.01 K/uL (0.00-0.02); LYMPH ABS # 0.93 K/uL (1.2-3.4); MEAN CELL VOLUME 94.8 fL (80-100); MEAN CORPUSCULAR HEMOGLOBIN 31.4 pg (25-34); MEAN CORPUSCULAR HGB CONC 33.2 g/dl (32-36); MEAN PLATELET VOLUME 9.4 fL (7.4-10.4); MONO % 7.4 %; MONO ABS # 0.46 K/uL (0.11-0.59); NEUT % 76.4 %; NEUT ABS # 4.75 K/uL (1.4-6.5); PLATELET COUNT 253 K/uL (130-400); RED CELL DISTRIBUTION WIDTH CV 16.2 % (11.5-14.5); RED CELL DISTRIBUTION WIDTH SD 56.2 fL (36.4-46.3); WHITE BLOOD COUNT 6.21 K/uL (4.8-10.8)
[2018-01-25 14:07] LABS: BLOOD UREA NITROGEN 16 mg/dl (7-18); CALCIUM 9.2 mg/dl (8.5-10.1); CARBON DIOXIDE 28 mmol/L (21-32); CHOLESTEROL 208 mg/dl (0-200); CREATININE 0.86 mg/dl (0.60-1.20); GLUCOSE 95 mg/dl (70-99); POTASSIUM 4.4 mmol/L (3.5-5.1); SODIUM 134 mmol/L (136-145)
[2018-01-25 14:11] LABS: LDL CHOLESTEROL CALCULATED 115 mg/dl
== END | disposition home or self-care (01) ==
LOC: C.LABPVFM 09:16
PROVIDERS: ATTEND Nurse Practitioner
DX: N18.3 Chronic kidney disease, stage 3 (moderate) (principal); D50.9 Iron deficiency anemia, unspecified; E78.5 Hyperlipidemia, unspecified

== ENCOUNTER 2018-02-12 09:55 | Emergency (ER) | payer OTHER ==
[~2018-02-12] VITALS: Ht 162.6 cm; Wt 46.0 kg
[2018-02-12 10:05] VITALS: TEMP 36.5; Ht 162.6 cm; Wt 46.0 kg
[2018-02-12] MEDS ORDERED: CEPH500C PO (10:45)
[2018-02-12 11:22] VITALS: BP 151/58; PULSE 66; O2SAT 96
--- NOTE | 2018-02-12 16:20 | EMERGENCY ROOM VISIT NOTE ---
ED Visit Note First contact with patient: 10:10 I have personally evaluated this patient examined her and reviewed the pertinent labs and data. I have discussed the case with Jamar Sams, the physician bakery assistant and agree with the plan. Please refer to the PA note. This patient comes in with a wound in her left calf. On my exam, she appears comfortable and has neurologically neurovascular intact in the left lower extremity, the wound has been dressed. She has no systemic complaints we will put her on antibiotics have her have close follow-up with her regular doctor for recheck. She should return if: increasing pain, fever or chills, or any new problems or concerns
--- NOTE | 2018-02-17 09:31 | EMERGENCY ROOM VISIT NOTE ---
History First contact with patient: 10:10 Chief Complaint: LEG PAIN,LEG INJURY Stated Complaint: SORE ON LEG History of Present Illness The patient is a 87 year old white female who presents to the Emergency Room with complaints of a painful ulcer on the backside of her right lower leg. She states she scratched herself with her great toenail while in bed a few weeks ago. They have been trying to heal the wound at home but it is not improving. Her states he has been putting a cortisone cream on the area. She has significant pain due to the ulceration. They have not seen her PCP. She denies any fevers or chills. No other areas of involvement. Her accompanies her today. No other complaints. Review of Systems REVIEW OF SYSTEM: HEENT: No dizziness, visual problems, hearing loss, or tinnitus. There is no difficulty swallowing and no oral lesions are present. LYMPH: No adenopathy. PULMONARY: No cough, shortness of breath, sputum production or hemoptysis. CARDIOVASCULAR: No chest pain, palpitations, shortness of breath or peripheral edema. GASTROINTESTINAL: No diarrhea, constipation, nausea, vomiting, or abdominal pain. GENITOURINARY: No dysuria, frequency, urgency or nocturia. NEUROLOGIC: No weakness, muscle tenderness, epilepsy or history of neurological problems. MUSCULOSKELETAL: No history of joint tenderness/swelling. Positive history of arthritis and arthralgias. SKIN: No rashes or lesions. PSYCHIATRIC: No history of depression or mental illness. ENDOCRINE: No history of diabetes, thyroid disorders, or abnormal hair growth. Past Medical/Surgical History Medical Problems: (1) Bleeding (2) H/O emphysema (3) Stroke Previous surgeries: Cholecystectomy Medical problems heart disease, kidney disease. Family History Heart disease Parents are . Social History Smoking Status: Current Every Day Smoker Alcohol Use: none Drug Use: none Marital Status: Housing Status: lives with family Occupation Status: retired Current/Historical Medications Scheduled Albuterol Hfa (Ventolin Hfa), 1 PUFF INH DAILY Baclofen (Baclofen), 5 MG PO TID Cephalexin Monohydrate (Keflex), 500 MG PO TID Clopidogrel Bisulfate (Plavix), 1 TAB PO DAILY Diclofenac Sod (Voltaren), 1 APPLN EXT QID Ergocalciferol (Vitamin D 27324 Unit), 50,000 UNITS PO 2XWK Escitalopram Oxalate (Escitalopram Oxalate), 10 MG PO DAILY Lorazepam (Ativan), 0.5 MG PO BID Pravastatin Sodium (Pravastatin Sodium), 10 MG PO HS Allergies Coded Allergies: Adhesives (Verified Allergy, Intermediate, red, irritated skin, 02/12/18) Physical Exam Vital Signs Date Time Temp Pulse Resp B/P (MAP) Pulse Ox O2 Delivery O2 Flow Rate FiO2 02/12/18 11:22 66 151/58 96 02/12/18 10:05 36.5 74 18 146/65 100 Room Air Physical Exam General: Frail, elderly white female, in no acute distress. Laying on the bed. Alert and oriented. Skin: Warm and dry with fair turgor. No rashes. She has a large excoriation/ ulceration present on the posterior aspect of her right calf. It is approximately 1.5-2 cm in diameter. Granulation tissue is present at the base. It is approximately 5-7 mm deep. There was a white cream applied on the wound. This was removed with moistened gauze. No surrounding erythema. Areas nonfluctuant. No ecchymosis. The patient is not diaphoretic. No abrasions. No fluid is expressible. Musculoskeletal: Gross motor function of the lower extremities is intact. She has intact function at the hips, knees, and ankles. There is tenderness with palpation over the posterior right calf. Neurologic: Gross sensation is intact across the lower extremities by soft touch. Peripheral pulses are 2+. Medical Decision & Procedures Laboratory Results Wound culture was obtained. ED Course Patient and her were educated regarding today's findings. Conservative care measures were discussed. Wound culture was obtained. Wound was cleansed with sterile saline and sterile gauze. Cleanse daily with soap and water and cover with triple antibiotic ointment. She was placed on Keflex 500 mg 3 times a day 7 days. Follow-up with her PCP later this week. If the wound is not improving, follow-up with wound care center for further management. She will be notified of the culture results. Return to the ED for any acute worsening of symptoms. Tylenol as needed for any minor discomfort. Avoid picking at the wound or touching it with dirty hands. Patient was seen in conjunction with Dr. Jiang, who also evaluated the patient and concurred with today's diagnosis and treatment plan. Medical Decision Possibility of ulceration, skin infection, MRSA infection, and skin cancer were considered per [place] Drug Monitoring Program Search Results: no issues identified Impression Primary Impression: Open wound of skin Departure Information Dispostion Home / Self-Care Condition GOOD Prescriptions Cephalexin Monohydrate (Keflex) 500 Mg Cap 500 MG PO TID, #21 CAP Prov: Jamar Sams,P.A. 02/12/18 Forms HOME CARE DOCUMENTATION FORM, TYLENOL USE, IMPORTANT VISIT INFORMATION Patient Instructions My [facility] Additional Instructions Cleanse the wound daily with soap and water Keep it covered with triple antibiotic ointment and a gauze pad Follow-up with your PCP on Wednesday for reexamination If it is not improving, follow-up with the wound care center for further management Keflex 1 pill 3 times a day 7 days Tylenol every 6 hours as needed for discomfort Avoid scratching or picking at the wound Return to the ED for any fevers or significant increase in redness
--- NOTE | 2018-02-17 17:34 | Pharmacy Progress Note ---
ED Pharmacist Culture FollowUp Date of Service: February 17, 2018. Patient presented to ED a few days ago with an open wound on her lower leg that has been present for a few weeks. Patient was discharged on Keflex. Now culture results show morganella, E. Faecalis, Bacteroides Fragilis, and peptostreptococcus. Called patient regarding wound culture. She informed me that she did see her PCP Wednesday of this week and the wound dressing was changed and she was due to return 02/25. Prescription for augmentin 500mg BID and levofloxacin 250mg QD X 7 days called to [facility] in [place] at the patient's request. Also informed the patient to stop taking the keflex given the new antibiotics. The patient verbalized understanding. Case discussed with Dr. Jiang, who is the prescribing provider. Given the patient's age, weight, and renal status, antibiotics were dosed conservatively and it was stressed to the patient to follow up again with PCP as soon as possible. It appears a copy of results should have been sent to patient's PCP, but I will attempt to verify this tomorrow.
== END 2018-02-12 11:25 | disposition home or self-care (01) ==
LOC: C.EDB 09:56 → C.EDA 11:25
DX: S81.801A Unspecified open wound, right lower leg, initial encounter (principal); W26.8XXA Contact with other sharp object(s), not elsewhere classified, initial encounter; I51.9 Heart disease, unspecified; N18.9 Chronic kidney disease, unspecified; F17.200 Nicotine dependence, unspecified, uncomplicated; Z79.899 Other long term (current) drug therapy; Z91.048 Other nonmedicinal substance allergy status

== ENCOUNTER 2018-03-25 18:03 | Inpatient (IN) | payer OTHER ==
[~2018-03-25] VITALS: Ht 162.6 cm; Wt 48.7 kg
[~2018-03-25 18:03] MED LIST changes: +DOCU-94 PO; -DOXY100C2 PO; +DSY/150 PO; -ERGO500011 PO; +FAMO20TA9 PO; +MCRK20 PEG; +METO-157 PO; -VLTG EXT
[2018-03-25] MEDS ORDERED: ACET-1256 PO (18:24)
[2018-03-25] MEDS ORDERED: FSMD/70 PO (18:24)
[2018-03-25] MEDS ORDERED: SENN-61 PO (18:24)
[2018-03-25] MEDS ORDERED: ERGO500037 PO (18:24)
[2018-03-25] MEDS ORDERED: METOCLOPRAMIDE HCL INJ 5 MG/ML 2 ML VIAL IV. STA (18:30)
[2018-03-25] MEDS ORDERED: MoRPHine SULFATE 4 MG/ML 1 ML CARP\\VIAL IV STA (18:30)
[2018-03-25] MEDS ORDERED: SODIUM CHLORIDE 0.9% 500ML 500 ML IV STA (18:30)
--- NOTE | 2018-03-25 18:37 | EMERGENCY ROOM VISIT NOTE ---
History Report prepared by Kit: Lázaro Sultana Under the Supervision of: Dr. Vicente Cardona M.D. First contact with patient: 18:22 Chief Complaint: ABNORMAL LABS Stated Complaint: LOW SODIUM,DELUSIONS History of Present Illness The patient is an 87 year old female who presents to the Emergency Room with complaints of constant abnormal labs. The patient states she was evaluated in [facility] today for a reevaluation of her blood work. She reports she was sent here because her sodium was too low. She notes she has been dizzy, nauseous , and delusional all day. The patient reports she is seeing bows in her daughter 's hair and halos. The patient notes this is her third visit this week. She states she has been experiencing pain in her RLQ that radiates to her mid- abdomen and right flank. The patient reports she also had a bowel blockage. She notes for the past week she cannot eat anything, is losing weight, and constipated. The patient states she fell recently and does not know why or how. She denies shortness of breath. Source of History: patient Onset: today Quality: other (low sodium) Timing: constant Associated Symptoms: + nausea, No SOB Note: Associated symptoms: delusions, dizziness, unable to eat, losing weight, constipated Review of Systems See HPI for pertinent positives & negatives. A total of 10 systems reviewed and were otherwise negative. Past Medical & Surgical Medical Problems: (1) Bleeding (2) H/O emphysema (3) Kidney disease (4) Mesenteric artery stenosis (5) NSTEMI (non-ST elevation myocardial infarction) (6) Stroke Family History Heart disease Social History Smoking Status: Current Every Day Smoker Alcohol Use: none Drug Use: none Marital Status: Housing Status: lives with family Occupation Status: retired Current/Historical Medications Scheduled Alendronate/Cholecalciferol (Fosamax+D 70MG/2800 Iu), 1 TABLET PO WK Baclofen (Baclofen), 5 MG PO TID Clopidogrel Bisulfate (Clopidogrel), 75 MG PO DAILY Docusate Sodium (Colace), 1 CAP PO BID Ergocalciferol (Vitamin D 79553 Unit), 50,000 UNIT PO WK Escitalopram Oxalate (Escitalopram Oxalate), 10 MG PO DAILY Lorazepam (Ativan), 0.5 MG PO BID Potassium Chloride Microencaps (Potassium Chloride Er), 20 MEQ PO DAILY Pravastatin Sodium (Pravastatin Sodium), 10 MG PO HS Senna (Senokot), 1 TAB PO HS Trazodone HCl (Trazodone HCl), 75 MG PO HS Scheduled PRN Acetaminophen (Tylenol), 500 MG PO q4-6h PRN for Pain Albuterol Hfa (Ventolin Hfa), 1 PUFF INH DAILY PRN for SOB/Wheezing Famotidine (Famotidine), 20 MG PO BID PRN for REFLUX Metoclopramide (Reglan), 10 MG PO Q6H PRN for Nausea Allergies Coded Allergies: Adhesives (Verified Allergy, Intermediate, red, irritated skin, 03/21/18) Physical Exam Vital Signs Date Time Temp Pulse Resp B/P (MAP) Pulse Ox O2 Delivery O2 Flow Rate FiO2 03/25/18 23:04 89 03/25/18 22:44 82 20 180/67 96 Room Air 03/25/18 21:35 69 18 207/95 97 Room Air 03/25/18 19:35 64 18 207/71 100 Room Air 03/25/18 19:16 66 03/25/18 19:05 100 Room Air 03/25/18 18:50 100 Room Air 03/25/18 18:20 36.8 72 20 194/71 98 Room Air Physical Exam GENERAL: Awake, alert, cachectic-appearing, in no acute distress. Holding her right side. HENT: Normocephalic, atraumatic. Oropharynx unremarkable. EYES: Normal conjunctiva. Sclera non-icteric. NECK: Supple. No nuchal rigidity. FROM. No JVD. RESPIRATORY: Clear to auscultation. CARDIAC: Regular rate, normal rhythm. Extremities warm and well perfused. Pulses equal. ABDOMEN: Soft, non-distended. No tenderness to palpation. No rebound or guarding. No masses. RECTAL: Deferred. MUSCULOSKELETAL: Chest examination reveals no tenderness. The back is symmetrical on inspection without obvious abnormality. There is no CVA tenderness to palpation. No joint edema. LOWER EXTREMITIES: Calves are equal size bilaterally and non-tender. No edema. No discoloration. NEURO: Normal sensorium. No sensory or motor deficits noted. SKIN: No rash or jaundice noted. Medical Decision & Procedures ER Provider Diagnostic Interpretation: Radiology results as stated below per my review and radiologist interpretation: SINGLE VIEW CHEST CLINICAL HISTORY: Atypical chest pain. FINDINGS: An AP, portable, upright chest radiograph is compared to study dated 03/21/2018 and correlated with chest CT dated 01/10/2016. The examination is degraded by portable technique and patient rotation. The heart is enlarged and there is atherosclerotic calcification of the thoracic aorta. The pulmonary vasculature is noncongested. Emphysema and chronic interstitial thickening are similar to previous. No airspace consolidation or large pleural effusion is identified. No pneumothorax is seen. The bony thorax is grossly intact. Degenerative change and scoliosis are noted in the thoracic spine. Cholecystectomy clips are identified in the right upper quadrant. IMPRESSION: Cardiomegaly and emphysema with no acute cardiopulmonary abnormality. Electronically signed by: Anish Marquez M.D. 03/25/2018 7:32 PM Dictated Date/Time: 03/25/2018 7:[address] SCAN OF THE ABDOMEN AND PELVIS WITH IV CONTRAST CLINICAL HISTORY: Right lower quadrant abdominal pain. COMPARISON STUDY: Abdominal CT dated 03/21/2018 and 10/21/2017. TECHNIQUE: Following the IV administration of 116 cc of Optiray 320, CT scan of the abdomen and pelvis is performed from the lung bases to the proximal femora. Images are reviewed in the axial, sagittal, and coronal planes. IV contrast was administered without complication. A dose lowering technique was utilized adhering to the principles of ALARA. CT DOSE: 232.30 mGy.cm FINDINGS: Lung bases: The heart is mildly enlarged and there is trace pericardial fluid. There are coronary artery calcifications. There are small pleural effusions with bibasilar atelectasis. These have increased in size from 03/21/2018. There is a tiny hiatal hernia. Liver: The contrast-enhanced liver is normal in size, contour, and attenuation. There is moderate intrahepatic biliary ductal dilatation, similar to previous and likely related to previous cholecystectomy. The hepatic veins and portal veins are patent. Gallbladder: Surgically absent noting clips in the gallbladder fossa. Spleen: Normal in size and attenuation. Pancreas: Moderately atrophic and grossly unremarkable. Adrenal glands: Bilateral low-attenuation adrenal nodules are unchanged from previous and measure up to 2.0 cm. These likely represent adenomas but cannot be definitively characterized due to the presence of IV contrast. Kidneys: The contrast enhanced kidneys demonstrate cortical atrophy and are without hydronephrosis. The kidneys enhance symmetrically. Numerous subcentimeter cortical hypodensities likely represent cysts but are too small for definitive characterization. A punctate nonobstructing calculus is seen in the left upper pole. Abdominal vasculature: The abdominal aorta is normal in course and caliber noting advanced atherosclerotic calcification. There is high-grade stenosis to near complete occlusion of the superior mesenteric artery seen on image #107. Bowel: There is mild to moderate colonic diverticulosis without CT evidence of acute diverticulitis. There is moderate colonic fecal retention. No bowel obstruction is seen. The appendix is not identified and reported surgically absent. Peritoneum: There is no intraperitoneal free air or abdominal ascites. Lymphadenopathy: None. Pelvic viscera: The bladder, uterus, and adnexa are normal as visualized. Skeletal structures: The skeletal structures are osteopenic. There is moderate lumbosacral spondylosis and scoliosis. There is a moderate to severe compression fracture of T12. Paravertebral edema is noted at this level. Mild chronic superior endplate compression deformities are noted in the L4 and L5. No lytic or blastic lesions are seen. IMPRESSION: 1. There are no acute infectious or inflammatory findings in the abdomen or pelvis. 2. There is a moderate to severe compression fracture of T12. This is new from 10/21/2017 and appears acute to subacute. 3. There are small pleural effusions. These have increased in size from 03/21/2018. 4. Mild cardiac enlargement and advanced atherosclerotic disease. 5. Moderate constipation. 6. There is mild to moderate colonic diverticulosis without CT evidence of acute diverticulitis. 7. Additional findings as above. Electronically signed by: Anish Marquez M.D. 03/25/2018 10:26 PM Dictated Date/Time: 03/25/2018 10:15 PM Laboratory Results 03/25/18 19:10 Red Blood Count 3.78, Mean Corpuscular Volume 88.4, Mean Corpuscular Hemoglobin 30.2, Mean Corpuscular Hemoglobin Concent 34.1, Mean Platelet Volume 8.9, Neutrophils (%) (Auto) 79.5, Lymphocytes (%) (Auto) 13.2, Monocytes (%) (Auto) 6.9, Eosinophils (%) (Auto) 0.2, Basophils (%) (Auto) 0.0, Neutrophils # (Auto) 5.30, Lymphocytes # (Auto) 0.88, Monocytes # (Auto) 0.46, Eosinophils # (Auto) 0.01, Basophils # (Auto) 0.00 03/25/18 19:10 Test 03/25/18 18:55 03/25/18 19:10 Osmolality 261 mOsm/kg (280-300) White Blood Count 6.66 K/uL (4.8-10.8) Red Blood Count 3.78 M/uL (4.2-5.4) Hemoglobin 11.4 g/dL (12.0-16.0) Hematocrit 33.4 % (37-47) Mean Corpuscular Volume 88.4 fL (80-100) Mean Corpuscular Hemoglobin 30.2 pg (25-34) Mean Corpuscular Hemoglobin Concent 34.1 g/dl (32-36) Platelet Count 272 K/uL (130-400) Mean Platelet Volume 8.9 fL (7.4-10.4) Neutrophils (%) (Auto) 79.5 % Lymphocytes (%) (Auto) 13.2 % Monocytes (%) (Auto) 6.9 % Eosinophils (%) (Auto) 0.2 % Basophils (%) (Auto) 0.0 % Neutrophils # (Auto) 5.30 K/uL (1.4-6.5) Lymphocytes # (Auto) 0.88 K/uL (1.2-3.4) Monocytes # (Auto) 0.46 K/uL (0.11-0.59) Eosinophils # (Auto) 0.01 K/uL (0-0.5) Basophils # (Auto) 0.00 K/uL (0-0.2) RDW Standard Deviation 46.2 fL (36.4-46.3) RDW Coefficient of Variation 14.3 % (11.5-14.5) Immature Granulocyte % (Auto) 0.2 % Immature Granulocyte # (Auto) 0.01 K/uL (0.00-0.02) Anion Gap 10.0 mmol/L (3-11) Estimated GFR () 72.4 Estimated GFR (Non- 62.5 BUN/Creatinine Ratio 12.3 (10-20) Calcium Level 8.2 mg/dl (8.5-10.1) Total Bilirubin 0.4 mg/dl (0.2-1) Direct Bilirubin 0.1 mg/dl (0-0.2) Aspartate Amino Transf (AST/SGOT) 19 U/L (15-37) Alanine Aminotransferase (ALT/SGPT) 14 U/L (12-78) Alkaline Phosphatase 60 U/L (45-117) Total Creatine Kinase 63 U/L (26-192) Creatine Kinase MB 3.9 ng/ml (0.5-3.6) Creatine Kinase MB Ratio 6.2 (0-3.0) Total Protein 6.4 gm/dl (6.4-8.2) Albumin 3.3 gm/dl (3.4-5.0) Lipase 133 U/L (73-393) Labs reviewed by ED physician. Medications Administered Medications (Trade) Dose Ordered Sig/Archana Route Start Time Stop Time Status Last Admin Dose Admin Sodium Chloride 500 ml @ 999 mls/hr Q31M STAT IV 03/25/18 18:30 03/25/18 19:01 DC 03/25/18 18:59 999 MLS/HR Morphine Sulfate (MoRPHine SULFATE INJ) 4 mg NOW STAT IV 03/25/18 18:30 03/25/18 18:32 DC 03/25/18 18:59 4 MG Metoclopramide HCl (Reglan Inj) 10 mg NOW STAT IV. 03/25/18 18:30 03/25/18 18:32 DC 03/25/18 18:59 10 MG Ondansetron HCl (Zofran Inj) 4 mg NOW STAT IV 03/25/18 19:45 03/25/18 19:47 DC 03/25/18 19:56 4 MG Potassium Chloride (Klor-Con M10) 40 meq NOW STAT PO 03/25/18 19:58 03/25/18 19:59 DC 03/25/18 20:05 40 MEQ Potassium Chloride 100 ml @ 100 mls/hr NOW STAT IV 03/25/18 19:59 03/25/18 20:59 DC 03/25/18 20:05 100 MLS/HR Hydralazine HCl (HydrALAZINE INJ) 10 mg Q4H PRN IV. 03/25/18 21:45 04/24/18 21:44 03/25/18 21:53 10 MG Nitroglycerin (Nitroglycerin 2% Oint) 18 inch STK-MED ONCE EXT 03/25/18 21:43 03/25/18 21:44 DC 03/25/18 21:53 1 INCH ECG Per My Interpretation Indication: other (abnormal labs) Rate (beats per minute): 63 Rhythm: normal sinus Findings: left axis deviation, other (LVH, septal infarct) ED Course 1824: Past medical records reviewed. The patient was evaluated in room A09B. A complete history and physical examination was performed. 1915: I reevaluated the patient. She is feeling better and more comfortable. 2033: I discussed the patient's case with Dr. Yarbrough [facility] Hospitalist. The patient will be evaluated for further management and care. 2120: Upon reexamination the patient is resting. I discussed results and treatment plan with the patient. She verbalizes agreement and understanding. The patient will be evaluated for further management. Medical Decision Differential diagnosis: Etiologies such as appendicitis, diverticulitis, PUD, biliary pathology, UTI, pancreatitis, obstruction, mesenteric ischemia, aortic pathology, infections, inflammatory bowel disease, renal colic, as well as others were entertained. This is an 87-year-old that comes to the emergency department complaining of abdominal pain. Patient has been to the emergency department 3 times this week and has had hyponatremia on multiple visits. Her troponin is elevated today. She was given morphine as well as Reglan for the pain. Repeat examination revealed improvement in patient's symptoms. Patient's CAT scan is concerning for constipation as well as a T12 fracture. Due to the elevation of the troponin as well as the hyponatremia and the hypokalemia I did discuss the case with the hospitalist service who agreed to admit the patient. Patient's potassium was repleted here in the emergency department. Patient and family were in agreement with the treatment plan. Medication Reconcilliation Current Medication List: was personally reviewed by me Blood Pressure Screening Patient's blood pressure: Elevated blood pressure Monitored by hospitalist. Consults Time Called: 2021 Consulting Physician: Dr. Yarbrough [facility] Hospitalist Returned Call: 2033 I discussed the patient's case with Dr. Yarbrough [facility] Hospitalist. The patient will be evaluated for further management and care. Impression Primary Impression: Hyponatremia Additional Impression: Hypokalemia Scribe Attestation The scribe's documentation has been prepared under my direction and personally reviewed by me in its entirety. I confirm that the note above accurately reflects all work, treatment, procedures, and medical decision making performed by me. Departure Information Dispostion Being Evaluated By Hospitalist Referrals Angelika Rowan (PCP) Patient Instructions My [facility] Health Problem Qualifiers
[2018-03-25 19:30] LABS: EOS % 0.2 %; EOS ABS # 0.01 K/uL (0-0.5); HEMATOCRIT 33.4 % (37-47); HEMOGLOBIN 11.4 g/dL (12.0-16.0); IG# 0.01 K/uL (0.00-0.02); LYMPH % 13.2 %; LYMPH ABS # 0.88 K/uL (1.2-3.4); MEAN CELL VOLUME 88.4 fL (80-100); MEAN CORPUSCULAR HEMOGLOBIN 30.2 pg (25-34); MEAN CORPUSCULAR HGB CONC 34.1 g/dl (32-36); MEAN PLATELET VOLUME 8.9 fL (7.4-10.4); MONO % 6.9 %; MONO ABS # 0.46 K/uL (0.11-0.59); NEUT % 79.5 %; PLATELET COUNT 272 K/uL (130-400); RED CELL DISTRIBUTION WIDTH CV 14.3 % (11.5-14.5); RED CELL DISTRIBUTION WIDTH SD 46.2 fL (36.4-46.3); WHITE BLOOD COUNT 6.66 K/uL (4.8-10.8)
--- NOTE | 2018-03-25 19:34 | DIAGNOSTIC IMAGING REPORT ---
SINGLE VIEW CHEST CLINICAL HISTORY: Atypical chest pain. FINDINGS: An AP, portable, upright chest radiograph is compared to study dated 03/21/2018 and correlated with chest CT dated 01/10/2016. The examination is degraded by portable technique and patient rotation. The heart is enlarged and there is atherosclerotic calcification of the thoracic aorta. The pulmonary vasculature is noncongested. Emphysema and chronic interstitial thickening are similar to previous. No airspace consolidation or large pleural effusion is identified. No pneumothorax is seen. The bony thorax is grossly intact. Degenerative change and scoliosis are noted in the thoracic spine. Cholecystectomy clips are identified in the right upper quadrant. IMPRESSION: Cardiomegaly and emphysema with no acute cardiopulmonary abnormality. Electronically signed by: Anish Marquez M.D. 03/25/2018 7:32 PM Dictated Date/Time: 03/25/2018 7:31 PM
[2018-03-25] MEDS ORDERED: ONDANSETRON INJ 2 MG/ML 2 ML VIAL IV STA (19:45)
[2018-03-25 19:56] LABS: ALBUMIN 3.3 gm/dl (3.4-5.0); ALT/SGPT 14 U/L (12-78); AST/SGOT 19 U/L (15-37); BLOOD UREA NITROGEN 10 mg/dl (7-18); CALCIUM 8.2 mg/dl (8.5-10.1); CARBON DIOXIDE 28 mmol/L (21-32); CREATININE 0.84 mg/dl (0.60-1.20); GLUCOSE 149 mg/dl (70-99); LIPASE 133 U/L (73-393); POTASSIUM 2.8 mmol/L (3.5-5.1); SODIUM 125 mmol/L (136-145)
[2018-03-25] MEDS ORDERED: POTASSIUM CHLORIDE 10 MEQ TABCR PO STA (19:58)
[2018-03-25] MEDS ORDERED: POTASSIUM CHLR 10 MEQ / WTR 100 ML IV STA (19:59)
[2018-03-25 20:02] LABS: ALKALINE PHOSPHATASE 60 U/L (45-117); CKMB 3.9 ng/ml (0.5-3.6); TOTAL PROTEIN 6.4 gm/dl (6.4-8.2)
[2018-03-25] MEDS ORDERED: POTA20TA13 PO (20:19)
[2018-03-25] MEDS ORDERED: DOCU-94 PO (20:19)
[2018-03-25] MEDS ORDERED: PLV75 PO (20:19)
[2018-03-25] MEDS ORDERED: METO-157 PO (20:19)
[2018-03-25] MEDS ORDERED: DSY/150 PO (20:23)
[2018-03-25] MEDS ORDERED: FAMO1TAB47 PO (20:23)
[2018-03-25] MEDS ORDERED: OPTIRAY 320 IV PRN (21:00)
[2018-03-25] MEDS ORDERED: HydrALAZINE HCL 20 MG/ML VIAL ONE (21:41)
[2018-03-25] MEDS ORDERED: NITROGLYCERIN 2% OINTMENT 30GM TUBE EXT ONE (21:43)
[2018-03-25] MEDS: HydrALAZINE HCL 20 MG/ML VIAL IV. PRN (21:53)
--- NOTE | 2018-03-25 22:27 | DIAGNOSTIC IMAGING REPORT ---
CT SCAN OF THE ABDOMEN AND PELVIS WITH IV CONTRAST CLINICAL HISTORY: Right lower quadrant abdominal pain. COMPARISON STUDY: Abdominal CT dated 03/21/2018 and 10/21/2017. TECHNIQUE: Following the IV administration of 116 cc of Optiray 320, CT scan of the abdomen and pelvis is performed from the lung bases to the proximal femora. Images are reviewed in the axial, sagittal, and coronal planes. IV contrast was administered without complication. A dose lowering technique was utilized adhering to the principles of ALARA. CT DOSE: 232.30 mGy.cm FINDINGS: Lung bases: The heart is mildly enlarged and there is trace pericardial fluid. There are coronary artery calcifications. There are small pleural effusions with bibasilar atelectasis. These have increased in size from 03/21/2018. There is a tiny hiatal hernia. Liver: The contrast-enhanced liver is normal in size, contour, and attenuation. There is moderate intrahepatic biliary ductal dilatation, similar to previous and likely related to previous cholecystectomy. The hepatic veins and portal veins are patent. Gallbladder: Surgically absent noting clips in the gallbladder fossa. Spleen: Normal in size and attenuation. Pancreas: Moderately atrophic and grossly unremarkable. Adrenal glands: Bilateral low-attenuation adrenal nodules are unchanged from previous and measure up to 2.0 cm. These likely represent adenomas but cannot be definitively characterized due to the presence of IV contrast. Kidneys: The contrast enhanced kidneys demonstrate cortical atrophy and are without hydronephrosis. The kidneys enhance symmetrically. Numerous subcentimeter cortical hypodensities likely represent cysts but are too small for definitive characterization. A punctate nonobstructing calculus is seen in the left upper pole. Abdominal vasculature: The abdominal aorta is normal in course and caliber noting advanced atherosclerotic calcification. There is high-grade stenosis to near complete occlusion of the superior mesenteric artery seen on image #107. Bowel: There is mild to moderate colonic diverticulosis without CT evidence of acute diverticulitis. There is moderate colonic fecal retention. No bowel obstruction is seen. The appendix is not identified and reported surgically absent. Peritoneum: There is no intraperitoneal free air or abdominal ascites. Lymphadenopathy: None. Pelvic viscera: The bladder, uterus, and adnexa are normal as visualized. Skeletal structures: The skeletal structures are osteopenic. There is moderate lumbosacral spondylosis and scoliosis. There is a moderate to severe compression fracture of T12. Paravertebral edema is noted at this level. Mild chronic superior endplate compression deformities are noted in the L4 and L5. No lytic or blastic lesions are seen. IMPRESSION: 1. There are no acute infectious or inflammatory findings in the abdomen or pelvis. 2. There is a moderate to severe compression fracture of T12. This is new from 10/21/2017 and appears acute to subacute. 3. There are small pleural effusions. These have increased in size from 03/21/2018. 4. Mild cardiac enlargement and advanced atherosclerotic disease. 5. Moderate constipation. 6. There is mild to moderate colonic diverticulosis without CT evidence of acute diverticulitis. 7. Additional findings as above. Electronically signed by: Anish Marquez M.D. 03/25/2018 10:26 PM Dictated Date/Time: 03/25/2018 10:15 PM
--- NOTE | 2018-03-25 23:28 | History and Physical ---
History & Physical Date & Time of Service: Mar 25, 2018 at 23:28 Chief Complaint: Low Sodium,Delusions Primary Care Physician: Angelika Rowan History of Present Illness Source: patient, family, hospital records The patient is an 87-year-old female who was referred to the emergency department by her PCP at [facility] today after having abnormal laboratories in the outpatient setting. She and her daughter, report that she has been dizzy , nauseous and having hallucinations all day. She has also had intermittent pain in her epigastric area, and right lower quadrant. She has had decreased appetite over the past 48 hours, has not moved her bowels in that time, and feels that as though she is losing weight. She does report a history of falling recently, and does report some back pain, but does not know if the two are associated. 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 (19) Nausea & vomiting (20) NSTEMI (non-ST elevation myocardial infarction) (21) Open wound of skin (22) Open wound of skin (23) Ptosis (24) Scalp laceration (25) Stroke (26) Stroke-like symptoms Family History Heart disease Social History Smoking Status: Current Every Day Smoker Smokeless Tobacco Use: No Alcohol Use: none Drug Use: none Marital Status: Housing status: lives with family Occupational Status: retired Immunizations History of Influenza Vaccine: Unknown History of Tetanus Vaccine?: Unknown History of Pneumococcal: Unknown Allergies Coded Allergies: Adhesives (Verified Allergy, Intermediate, red, irritated skin, 03/21/18) Home Medications Scheduled Alendronate/Cholecalciferol (Fosamax+D 70MG/2800 Iu), 1 TABLET PO WK Baclofen (Baclofen), 5 MG PO TID Clopidogrel Bisulfate (Clopidogrel), 75 MG PO DAILY Docusate Sodium (Colace), 1 CAP PO BID Ergocalciferol (Vitamin D 35847 Unit), 50,000 UNIT PO WK Escitalopram Oxalate (Escitalopram Oxalate), 10 MG PO DAILY Lorazepam (Ativan), 0.5 MG PO BID Potassium Chloride Microencaps (Potassium Chloride Er), 20 MEQ PO DAILY Pravastatin Sodium (Pravastatin Sodium), 10 MG PO HS Senna (Senokot), 1 TAB PO HS Trazodone HCl (Trazodone HCl), 75 MG PO HS Scheduled PRN Acetaminophen (Tylenol), 500 MG PO q4-6h PRN for Pain Albuterol Hfa (Ventolin Hfa), 1 PUFF INH DAILY PRN for SOB/Wheezing Famotidine (Famotidine), 20 MG PO BID PRN for REFLUX Metoclopramide (Reglan), 10 MG PO Q6H PRN for Nausea Review of Systems The patient denies chest pain, palpitations, shortness of breath, dyspnea on exertion, cough, lower extremity swelling, sore throat, fevers, chills, sweats, vomiting, blood in urine or stool, dysuria, urinary frequency or urgency, loss of consciousness, rash, abnormal bruising or bleeding, focal weakness, numbness or tingling in arms or legs, generalized arthralgias or myalgias, neck pain, or night sweats. The review of systems is otherwise negative other than for that already noted above, and at least 10 systems have been reviewed. Physical Exam Vital Signs Date Time Temp Pulse Resp B/P (MAP) Pulse Ox O2 Delivery O2 Flow Rate FiO2 03/25/18 23:04 89 03/25/18 22:44 82 20 180/67 96 Room Air 03/25/18 21:35 69 18 207/95 97 Room Air 03/25/18 19:35 64 18 207/71 100 Room Air 03/25/18 19:16 66 03/25/18 19:05 100 Room Air 03/25/18 18:50 100 Room Air 03/25/18 18:20 36.8 72 20 194/71 98 Room Air The patient is awake, alert and oriented 3, normocephalic and atraumatic, lying in bed and in no acute distress. HEENT--PERRL, EOMI, mucous membranes and oropharynx dry. Neck--supple. No JVD. No bruits. Thyroid normal, trachea midline, no adenopathy. Heart--normal S1 and S2. No murmurs, rubs or gallops. Lungs--clear bilaterally, no respiratory distress, no accessory muscle use. Abdomen--normal bowel sounds and soft. Nontender. Nondistended, no hernias or masses, no organomegaly. Extremities--no cyanosis or clubbing. No edema. There are good distal pulses b/ l. Dermatologic--normal skin turgor, normal color, no abnormal lymph nodes, no rash. Neurologic--cranial nerves II through XII grossly intact. Rheumatologic--normal range of motion. Psychiatric--normal affect. Diagnostics Laboratory Results Results Past 24 Hours Test 03/25/18 18:55 03/25/18 19:10 Range/Units Osmolality 261 280-300 mOsm/kg White Blood Count 6.66 4.8-10.8 K/uL Red Blood Count 3.78 4.2-5.4 M/uL Hemoglobin 11.4 12.0-16.0 g/dL Hematocrit 33.4 37-47 % Mean Corpuscular Volume 88.4 80-100 fL Mean Corpuscular Hemoglobin 30.2 25-34 pg Mean Corpuscular Hemoglobin Concent 34.1 32-36 g/dl Platelet Count 272 130-400 K/uL Mean Platelet Volume 8.9 7.4-10.4 fL Neutrophils (%) (Auto) 79.5 % Lymphocytes (%) (Auto) 13.2 % Monocytes (%) (Auto) 6.9 % Eosinophils (%) (Auto) 0.2 % Basophils (%) (Auto) 0.0 % Neutrophils # (Auto) 5.30 1.4-6.5 K/uL Lymphocytes # (Auto) 0.88 1.2-3.4 K/uL Monocytes # (Auto) 0.46 0.11-0.59 K/uL Eosinophils # (Auto) 0.01 0-0.5 K/uL Basophils # (Auto) 0.00 0-0.2 K/uL RDW Standard Deviation 46.2 36.4-46.3 fL RDW Coefficient of Variation 14.3 11.5-14.5 % Immature Granulocyte % (Auto) 0.2 % Immature Granulocyte # (Auto) 0.01 0.00-0.02 K/uL Sodium Level 125 136-145 mmol/L Potassium Level 2.8 3.5-5.1 mmol/L Chloride Level 88 98-107 mmol/L Carbon Dioxide Level 28 21-32 mmol/L Anion Gap 10.0 3-11 mmol/L Blood Urea Nitrogen 10 7-18 mg/dl Creatinine 0.84 0.60-1.20 mg/dl Estimated GFR () 72.4 Estimated GFR (Non- 62.5 BUN/Creatinine Ratio 12.3 10-20 Random Glucose 149 70-99 mg/dl Calcium Level 8.2 8.5-10.1 mg/dl Total Bilirubin 0.4 0.2-1 mg/dl Direct Bilirubin 0.1 0-0.2 mg/dl Aspartate Amino Transf (AST/SGOT) 19 15-37 U/L Alanine Aminotransferase (ALT/SGPT) 14 12-78 U/L Alkaline Phosphatase 60 45-117 U/L Total Creatine Kinase 63 26-192 U/L Creatine Kinase MB 3.9 0.5-3.6 ng/ml Creatine Kinase MB Ratio 6.2 0-3.0 Troponin I 0.279 0-0.045 ng/ml Total Protein 6.4 6.4-8.2 gm/dl Albumin 3.3 3.4-5.0 gm/dl Lipase 133 73-393 U/L Diagnostic Radiology Patient Name: CAMERON RIVERA Unit Number: [id number] Dictated: 03/25/181930 Transcribed: 03/25/181930 EV Printed Date/Time: [~ rep prt dt]/[~ rep prt tm] [~ rep ct labl] - [~ rep ct ivnm] [facility] Radiology Department [place], [place] [id number] Dictated: 03/25/181930 Transcribed: 03/25/181930 EV Printed Date/Time: [~ rep prt dt]/[~ rep prt tm] [~ rep ct labl] - [~ rep ct ivnm] SINGLE VIEW CHEST CLINICAL HISTORY: Atypical chest pain. FINDINGS: An AP, portable, upright chest radiograph is compared to study dated 03/21/2018 and correlated with chest CT dated 01/10/2016. The examination is degraded by portable technique and patient rotation. The heart is enlarged and there is atherosclerotic calcification of the thoracic aorta. The pulmonary vasculature is noncongested. Emphysema and chronic interstitial thickening are similar to previous. No airspace consolidation or large pleural effusion is identified. No pneumothorax is seen. The bony thorax is grossly intact. Degenerative change and scoliosis are noted in the thoracic spine. Cholecystectomy clips are identified in the right upper quadrant. IMPRESSION: Cardiomegaly and emphysema with no acute cardiopulmonary abnormality. Electronically signed by: Anish Marquez M.D. 03/25/2018 7:32 PM Dictated Date/Time: 03/25/2018 7:31 PM The status of this report is Signed. Draft = Not yet reviewed or approved by Radiologist. Signed = Reviewed and approved by Radiologist. <AttendingPhy></AttendingPhy> <FamilyPhy>Angelika Rowan C.R.N.P.</FamilyPhy> <PrimaryPhy>Angelika Rowan C.R.N.P.</PrimaryPhy> <UnitNumber>[id number]</ UnitNumber> <VisitNumber>[id number]</VisitNumber> <PatientName>SUNILCAMERON MONTGOMERY</PatientName> <DateOfBirth>1930</DateOfBirth> <Location>[facility]</ Location> <ServiceDate>03/25/18</ServiceDate> <MNE>ESINDI</MNE> <OrderingPhy> Vicente Cardona MD</OrderingPhy> <OrderingPhyMNE>f rep ord dr brasher</ OrderingPhyMNE> <DictatingPhyMNE>f rep dict dr brasher</DictatingPhyMNE> <CCListMNE> f rep ct sameera</CCListMNE> <AdmittingPhyMNE>f pt admit dr brasher</AdmittingPhyMNE> < AttendingPhyMNE>f pt attend dr brasher</AttendingPhyMNE> <ConsultingPhyMNE>f pt consult dr brasher</ConsultingPhyMNE> <FamilyPhyMNE>f pt fam dr brasher</FamilyPhyMNE> <OtherPhyMNE>f pt other dr brasher</OtherPhyMNE> < PrimaryPhyMNE>f pt prim care dr brasher</PrimaryPhyMNE> <ReferringPhyMNE>f pt referring dr brasher</ReferringPhyMNE> Patient Name: CAMERON RIVERA Unit Number: [id number] Dictated: 03/25/182214 Transcribed: 03/25/182214 EV Printed Date/Time: [~ rep prt dt]/[~ rep prt tm] [~ rep ct labl] - [~ rep ct ivnm] [facility] Radiology Department [place] [id number] Dictated: 03/25/182214 Transcribed: 03/25/182214 EV Printed Date/Time: [~ rep prt dt]/[~ rep prt tm] [~ rep ct labl] - [~ rep ct ivnm] [~ rep ct add3]] CT SCAN OF THE ABDOMEN AND PELVIS WITH IV CONTRAST CLINICAL HISTORY: Right lower quadrant abdominal pain. COMPARISON STUDY: Abdominal CT dated 03/21/2018 and 10/21/2017. TECHNIQUE: Following the IV administration of 116 cc of Optiray 320, CT scan of the abdomen and pelvis is performed from the lung bases to the proximal femora. Images are reviewed in the axial, sagittal, and coronal planes. IV contrast was administered without complication. A dose lowering technique was utilized adhering to the principles of ALARA. CT DOSE: 232.30 mGy.cm FINDINGS: Lung bases: The heart is mildly enlarged and there is trace pericardial fluid. There are coronary artery calcifications. There are small pleural effusions with bibasilar atelectasis. These have increased in size from 03/21/2018. There is a tiny hiatal hernia. Liver: The contrast-enhanced liver is normal in size, contour, and attenuation. There is moderate intrahepatic biliary ductal dilatation, similar to previous and likely related to previous cholecystectomy. The hepatic veins and portal veins are patent. Gallbladder: Surgically absent noting clips in the gallbladder fossa. Spleen: Normal in size and attenuation. Pancreas: Moderately atrophic and grossly unremarkable. Adrenal glands: Bilateral low-attenuation adrenal nodules are unchanged from previous and measure up to 2.0 cm. These likely represent adenomas but cannot be definitively characterized due to the presence of IV contrast. Kidneys: The contrast enhanced kidneys demonstrate cortical atrophy and are without hydronephrosis. The kidneys enhance symmetrically. Numerous subcentimeter cortical hypodensities likely represent cysts but are too small for definitive characterization. A punctate nonobstructing calculus is seen in the left upper pole. Abdominal vasculature: The abdominal aorta is normal in course and caliber noting advanced atherosclerotic calcification. There is high-grade stenosis to near complete occlusion of the superior mesenteric artery seen on image #107. Bowel: There is mild to moderate colonic diverticulosis without CT evidence of acute diverticulitis. There is moderate colonic fecal retention. No bowel obstruction is seen. The appendix is not identified and reported surgically absent. Peritoneum: There is no intraperitoneal free air or abdominal ascites. Lymphadenopathy: None. Pelvic viscera: The bladder, uterus, and adnexa are normal as visualized. Skeletal structures: The skeletal structures are osteopenic. There is moderate lumbosacral spondylosis and scoliosis. There is a moderate to severe compression fracture of T12. Paravertebral edema is noted at this level. Mild chronic superior endplate compression deformities are noted in the L4 and L5. No lytic or blastic lesions are seen. IMPRESSION: 1. There are no acute infectious or inflammatory findings in the abdomen or pelvis. 2. There is a moderate to severe compression fracture of T12. This is new from 10/21/2017 and appears acute to subacute. 3. There are small pleural effusions. These have increased in size from 03/21/2018. 4. Mild cardiac enlargement and advanced atherosclerotic disease. 5. Moderate constipation. 6. There is mild to moderate colonic diverticulosis without CT evidence of acute diverticulitis. 7. Additional findings as above. Electronically signed by: Anish Marquez M.D. 03/25/2018 10:26 PM Dictated Date/Time: 03/25/2018 10:15 PM The status of this report is Signed. Draft = Not yet reviewed or approved by Radiologist. Signed = Reviewed and approved by Radiologist. <AttendingPhy></AttendingPhy> <FamilyPhy>Angelika RowanR.N.PHerbie</FamilyPhy> <PrimaryPhy>Angelika RowanR.N.P.</PrimaryPhy> <UnitNumber>[id number]</ UnitNumber> <VisitNumber>[id number]</VisitNumber> <PatientName>CAMERON RIVERA</PatientName> <DateOfBirth>1930</DateOfBirth> <Location>[facility]</ Location> <ServiceDate>03/25/18</ServiceDate> <MNE>ESINDI</MNE> <OrderingPhy> Vicente Cardona MD</OrderingPhy> <OrderingPhyMNE>f rep ord dr brasher</ OrderingPhyMNE> <DictatingPhyMNE>f rep dict dr brasher</DictatingPhyMNE> <CCListMNE> f rep ct mne</CCListMNE> <AdmittingPhyMNE>f pt admit dr brasher</AdmittingPhyMNE> < AttendingPhyMNE>f pt attend dr brasher</AttendingPhyMNE> <ConsultingPhyMNE>f pt consult dr brasher</ConsultingPhyMNE> <FamilyPhyMNE>f pt fam dr brasher</FamilyPhyMNE> <OtherPhyMNE>f pt other dr brasher</OtherPhyMNE> < PrimaryPhyMNE>f pt prim care dr brasher</PrimaryPhyMNE> <ReferringPhyMNE>f pt referring dr brasher</ReferringPhyMNE> EKG NICOLE CAMERON ID:[id number] 25-MAR-2018 18:49:39 [facility] Poor data quality, interpretation may be adversely affected Normal sinus rhythm Possible Left atrial enlargement Left axis deviation Left ventricular hypertrophy Anteroseptal infarct (cited on or before 29-JUL-2017) Abnormal ECG When compared with ECG of 21-MAR-2018 18:00, No significant change was found 25mm/s 10mm/mV 150Hz 8.0 SP2 12SL 241 SHAYNNE: 16 Referred by: Unconfirmed Vent. rate 63 BPM MA interval 116 ms QRS duration 88 ms QT/QTc 430/440 ms P-R-T axes 65 -43 -28 1930 (87 yr) Female Room: Loc:15 [employer] Architect:SALEEM AKINS Impression Assessment and Plan Chest pain with epigastric pain/NSTEMI/SMA stenosis-- The patient will be admitted to telemetry for serial cardiac enzymes, serial EKG's, cardiac rhythm monitoring and a 2-D echocardiogram with Dopplers. Continue clopidogrel 75 mg p.o. daily. Increase Klor-Con 20 mEq p.o. daily to 20 mEq p.o. twice daily. Heart rate is in the low 60s. Place on Nitropaste 1 inch anterior chest wall every 6 hours. Hydralazine 10 mg IV every 4 hours as needed systolic blood pressure above 160. Consult cardiology. Hyponatremia with hypoosmolality/hypokalemia-- Sodium had decreased from 137 on March 18, to 127 on March 21, to 129 on March 23 , to 128 on March 25, and now to 125 on March 25 in the ED. Serum osmolality in the ED today is 261. Urine osmolality is still pending at this time. Lab abnormalities may just be due to poor oral intake over the past several days. She will be n.p.o. overnight, and then repeat laboratories in the morning. At that point, will reassess for IV fluids at that time. She has received 40 mEq potassium orally in the ED, and will continue at 20 mEq p.o. twice daily. Hyperlipidemia-- Pravastatin 10 mg p.o. at bedtime. Anxiety-- Continue Lexapro 10 mg p.o. daily, lorazepam 0.5 mg p.o. twice daily, and trazodone 75 mg p.o. at bedtime. Muscle spasm-- Continue baclofen 5 mg p.o. 3 times daily. Advanced Directives Existing Advance Directive: Yes Existing Living Will: Yes Existing Power of Pole Framer: No Resuscitation Status VTE Prophylaxis Will order VTE Prophylaxis: Yes
[2018-03-25] MEDS ORDERED: SENNA 8.6 MG TAB PO ONE (23:29)
[2018-03-25] MEDS ORDERED: TRAZODONE HCL 50 MG TAB PO ONE (23:30)
[2018-03-25] MEDS ORDERED: ONDANSETRON INJ 2 MG/ML 2 ML VIAL IV PRN (23:45)
[2018-03-26] VITALS (11 sets, daily range): BP systolic 140–199; BP diastolic 53–76; PULSE 72–95; TEMP 36.3–37.4; O2SAT 96–99; Ht 162.6 cm; Wt 48.7 kg
[2018-03-26] MEDS: NITROGLYCERIN 2% OINTMENT 30GM TUBE EXT SCH ×4 (04:17→21:56)
[2018-03-26 07:25] LABS: BASO % 0.1 %; BASO ABS # 0.01 K/uL (0-0.2); EOS % 0.3 %; EOS ABS # 0.02 K/uL (0-0.5); HEMATOCRIT 34.1 % (37-47); HEMOGLOBIN 11.6 g/dL (12.0-16.0); IG# 0.01 K/uL (0.00-0.02); LYMPH ABS # 0.91 K/uL (1.2-3.4); MEAN CORPUSCULAR HEMOGLOBIN 30.3 pg (25-34); MEAN PLATELET VOLUME 8.7 fL (7.4-10.4); MONO ABS # 0.56 K/uL (0.11-0.59); NEUT % 78.5 %; NEUT ABS # 5.51 K/uL (1.4-6.5); PLATELET COUNT 305 K/uL (130-400); RED CELL DISTRIBUTION WIDTH CV 14.4 % (11.5-14.5); RED CELL DISTRIBUTION WIDTH SD 46.4 fL (36.4-46.3); WHITE BLOOD COUNT 7.02 K/uL (4.8-10.8)
[2018-03-26 07:36] LABS: PTT PATIENT 25.9 SECONDS (21.0-31.0)
[2018-03-26] MEDS: BACLOFEN 10 MG TAB PO SCH ×3 (07:38→19:47)
[2018-03-26] MEDS: DOCUSATE SODIUM 100 MG CAP PO SCH ×2 (07:39→19:44)
[2018-03-26] MEDS: ESCITALOPRAM OXALATE 10 MG TAB PO SCH (07:40)
[2018-03-26] MEDS: POTASSIUM CHLORIDE 20 MEQ TABCR PO SCH ×2 (07:40→19:46)
[2018-03-26] MEDS: CLOPIDOGREL BISULFATE 75 MG TAB PO SCH (07:40)
[2018-03-26] MEDS: HydrALAZINE HCL 20 MG/ML VIAL IV. PRN ×2 (07:43→15:18)
[2018-03-26 08:00] LABS: CALCIUM 8.4 mg/dl (8.5-10.1); CREATININE 0.6 mg/dl (0.60-1.20); POTASSIUM 3.8 mmol/L (3.5-5.1)
[2018-03-26] MEDS ORDERED: POTASSIUM CHLORIDE 20 MEQ TABCR PO SCH (09:00)
[2018-03-26] MEDS: ACETAMINOPHEN 325 MG TAB PO PRN (11:31)
[2018-03-26] MEDS: NSS + 20MEQ KCL 1000ML 1,000 ML IV SCH (12:12)
--- NOTE | 2018-03-26 14:51 | CARDIOLOGY CONSULTATION ---
DATE OF CONSULTATION: 03/26/2018 PERTINENT HISTORY: Mrs. Sanchez is an 87-year-old white female with a complex past medical history, admitted last evening with complaints of right lower quadrant pain and electrolyte abnormalities. This consultation was ordered as her troponin level was elevated. Of note, the patient typically follows with Dr. Hayes as an outpatient. The patient was in her usual state of health until approximately 2-3 days prior to presentation. She was complaining of intermittent right lower quadrant pain which occasionally radiated towards her epigastrium. She was experiencing anorexia and has not moved her bowels in 2 days. She presented to the [facility] office on Wednesday morning with the above complaints. Outpatient laboratories noted a significant hyponatremia and hypokalemia. She was directed to the Emergency Room for further care. The patient has not experienced any chest discomfort. She also denies dyspnea, syncope, presyncope, PND, orthopnea, palpitations, lower extremity edema, and claudication. The patient does carry a history of severe aortic stenosis with [id number] aortic insufficiency on an echocardiogram performed in July 2017. She also has evidence of mild LVH and diastolic dysfunction. The patient did suffer mechanical fall on March 18 sustaining a scalp laceration which required stapling. There was no loss of consciousness. Currently, the patient is resting comfortably in bed without complaints. PAST MEDICAL HISTORY: 1. Severe aortic stenosis - July 2017. 2. [id number] aortic insufficiency. 3. Mild LVH. 4. Diastolic dysfunction. 5. Hypercholesterolemia. 6. Peripheral vascular disease. 7. COPD. 8. Hyperglycemia. 9. Chronic renal failure. 10. History of T12 compression fracture. 11. Anxiety. 12. Osteoporosis. 13. Less than 50% bilateral internal carotid stenoses - July 2016. 14. Diverticulosis. MEDICATIONS: 1. Nitroglycerin 1 inch to chest wall q. 6 hours. 2. Plavix 75 mg per day. 3. Pravachol 10 mg at bedtime. 4. Hydralazine 10 mg IV q. 4 hours p.r.n. 4. Senokot 1 tablet at bedtime. 5. Desyrel 75 mg at bedtime. 6. Baclofen 5 mg t.i.d. 7. Colace 100 mg b.i.d. 8. Lexapro 10 mg daily. 9. Potassium 20 mEq b.i.d. ALLERGIES: ADHESIVES. SOCIAL HISTORY: The patient is , lives with her . Admits to smoking 5-6 cigarettes daily. Does not use alcohol. FAMILY HISTORY: Noncontributory. REVIEW OF SYSTEMS: A 10-point review of systems was negative except for that described above. PHYSICAL EXAMINATION: GENERAL: This is a thin, elderly white female appearing older than her stated age. VITAL SIGNS: Blood pressure is 165/76 with a regular pulse of 90. Respiratory rate is 20. The patient is afebrile at 36.3 degrees Celsius. Saturation 99% on room air. HEENT: Negative. NECK: Supple with delayed and prolonged carotid upstrokes. A transmitted murmur or bruit is noted bilaterally. CARDIOVASCULAR: Reveals a regular rhythm with a 2/6 crescendo decrescendo systolic murmur heard loudest at the base. S2 is not audible at the apex. No S3. LUNGS: Clear without rales, rhonchi, or wheezes. ABDOMEN: Soft with some tenderness to palpation in the right lower quadrant. EXTREMITIES: Reveal intact radial artery pulses bilaterally. There is no peripheral edema. LABORATORY DATA: CBC notes hemoglobin 11.4, hematocrit 33.4, white count 6.6, platelet count 272,000. Electrolytes note a sodium of 125, potassium 2.8, chloride 88, bicarb 28, BUN 10, creatinine 0.84, glucose 149. Initial troponin was 0.279 with followup values of 0.298 and 0.309. CK is 63 with an MB fraction of 3.9. EKG notes sinus rhythm with an old anteroseptal myocardial infarction and a nonspecific ST-T wave abnormality. Chest x-ray notes cardiomegaly and emphysematous changes. Abdominal CT significant for a high-grade SMA stenosis versus total occlusion. There is a T12 compression fracture. No mention of mesenteric ischemia. IMPRESSION: Mrs. Sanchez was admitted with abdominal complaints, electrolyte abnormalities, and a mildly elevated troponin. There are no acute EKG changes. I doubt that this represents a true myocardial ischemia. Would continue with conservative medical management. Her abdominal complaints along with a high-grade SMA stenosis could signal the possibility of mesenteric ischemia. PLAN: 1. Continue usual outpatient cardiac medications. 2. Continue to trend troponins as you are. 3. Review echocardiogram. 4. Further recommendations depending on her clinical course.
[2018-03-26] MEDS: TRAZODONE HCL 50 MG TAB PO SCH (19:45)
[2018-03-26] MEDS: PRAVASTATIN SOD 10 MG TAB PO SCH (19:48)
[2018-03-26] MEDS: SENNA 8.6 MG TAB PO SCH (19:50)
--- NOTE | 2018-03-26 21:42 | Progress Note ---
Subjective Date of Service: Mar 26, 2018. Subjective Pt evaluation today including: conversation w/ patient, physical exam, lab review, review of studies, review of inpatient medication list Pain: mild RLQ pain PO Intake: tolerating clears Voiding: no voiding problems reviewed imaging and labs from admission patient was sitting in chair first time I saw her c/o RLQ pain, says it had improved to 5 out of 10 compared to 9 out of 10 on admission abdomen was soft, slightly distended, she did not have an appetite checked lactic acid, it was 1.7 re-examined two hours later, patient laying in bed, abdomen soft, much less tender, said pain was 2 out of 10, active bowel sounds discussed the case with Dr. Sanz, patient did not c/o chest pain or pressure, no EKG changes he recommended following troponins and treating conservatively most recent troponin 0.2, trending down Problem List Medical Problems: (1) Back pain Status: Acute (2) Chest pain Status: Acute (3) Closed head injury Status: Acute (4) Compression fracture of fifth lumbar vertebra with routine healing Status: Acute (5) Compression fracture of fourth lumbar vertebra with routinehealing Status: Acute (6) Compression fracture of thoracic vertebra Status: Acute (7) Constipation Status: Acute (8) Dehydration Status: Acute (9) Encounter for smoking cessation counseling Status: Acute (10) Facial droop Status: Acute (11) Fall Status: Acute (12) Heart murmur Status: Acute (13) Hypokalemia Status: Acute (14) Hyponatremia Status: Acute (15) Hyponatremia Status: Acute (16) Nausea & vomiting Status: Acute (17) Open wound of skin Status: Acute (18) Ptosis Status: Acute (19) Scalp laceration Status: Acute (20) Stroke-like symptoms Status: Acute Review of Systems Abdomen: + pain (RLQ), + constipation, No nausea, No vomiting, No diarrhea, No GI bleeding Psychiatric: + problem reported (visual hallucinations, described seeing a disco ball, momentary, knew what she was seeing was not there) All Other Systems: Reviewed and Negative Medications Current Inpatient Medications Medications (Trade) Dose Ordered Sig/Archana Route Start Time Stop Time Status Last Admin Dose Admin Ioversol (Optiray 320) 100 ml UD PRN IV 03/25/18 21:00 03/29/18 20:59 Hydralazine HCl (HydrALAZINE INJ) 10 mg Q4H PRN IV. 03/25/18 21:45 04/24/18 21:44 03/26/18 15:18 10 MG Nitroglycerin (Nitroglycerin 2% Oint) 1 inch Q6H EXT 03/26/18 04:00 04/25/18 03:59 03/26/18 15:20 1 INCH Acetaminophen (Tylenol Tab) 650 mg Q4H PRN PO 03/25/18 23:30 04/24/18 23:29 03/26/18 11:31 650 MG Albuterol (Ventolin Hfa Inhaler) 200 puffs DAILY PRN INH 03/25/18 23:30 04/24/18 23:29 Baclofen (Lioresal Tab) 5 mg TID PO 03/26/18 09:00 04/25/18 08:59 03/26/18 19:47 5 MG Clopidogrel Bisulfate (plAVix TAB) 75 mg DAILY PO 03/26/18 09:00 04/25/18 08:59 03/26/18 07:40 75 MG Docusate Sodium (coLACE CAP) 100 mg BID PO 03/26/18 09:00 04/25/18 08:59 03/26/18 19:44 100 MG Escitalopram Oxalate (Lexapro Tab) 10 mg DAILY PO 03/26/18 09:00 04/25/18 08:59 03/26/18 07:40 10 MG Pravastatin Sodium (Pravachol Tab) 10 mg HS PO 03/26/18 21:00 04/25/18 20:59 03/26/18 19:48 10 MG Senna (Senokot Tab) 17.2 mg HS PO 03/26/18 21:00 04/25/18 20:59 03/26/18 19:50 17.2 MG Trazodone HCl (Desyrel Tab) 75 mg HS PO 03/26/18 21:00 04/25/18 20:59 03/26/18 19:45 75 MG Ondansetron HCl (Zofran Inj) 4 mg Q6H PRN IV 03/25/18 23:45 04/24/18 23:44 Potassium Chloride (Klor-Con Tab) 20 meq BID PO 03/26/18 09:00 04/25/18 08:59 03/26/18 19:46 20 MEQ Morphine Sulfate (MoRPHine SULFATE INJ) 4 mg Q4 PRN IV 03/26/18 11:45 04/09/18 11:44 Morphine Sulfate (MoRPHine SULFATE INJ) 2 mg Q4 PRN IV 03/26/18 11:45 04/09/18 11:44 Potassium Chloride/Sodium Chloride 1,000 ml @ 80 mls/hr [id number] IV 03/26/18 11:45 04/25/18 11:44 03/26/18 12:12 80 MLS/HR Objective Vital Signs Date Time Temp Pulse Resp B/P (MAP) Pulse Ox O2 Delivery O2 Flow Rate FiO2 03/26/18 20:37 97 Room Air 03/26/18 18:11 85 166/74 (104) 03/26/18 16:00 Room Air 03/26/18 15:47 36.7 77 18 169/67 (101) 97 Room Air 03/26/18 12:00 Room Air 03/26/18 11:58 36.3 90 20 165/76 (105) 99 Room Air 03/26/18 11:56 84 199/66 (110) 03/26/18 08:59 140/53 (82) 03/26/18 08:22 95 158/61 (93) 03/26/18 08:00 Room Air 03/26/18 07:35 36.9 72 18 183/69 (107) 96 Room Air 03/26/18 05:01 37.4 78 16 166/68 (100) 97 Room Air 03/26/18 04:00 97 Room Air 03/26/18 00:21 36.8 88 24 162/70 97 Room Air 03/25/18 23:59 81 20 158/67 94 03/25/18 23:04 89 03/25/18 22:44 82 20 180/67 96 Room Air 03/25/18 21:35 69 18 207/95 97 Room Air Physical Exam General Appearance: no apparent distress, + thin Eyes: normal inspection, EOMI, sclerae normal ENT: normal ENT inspection, hearing grossly normal, pharynx normal Neck: supple, no adenopathy, no JVD, trachea midline Respiratory/Chest: chest non-tender, lungs clear, normal breath sounds, no respiratory distress, no accessory muscle use Cardiovascular: regular rate, rhythm, no edema, no gallop, no JVD, no murmur Abdomen: normal bowel sounds, soft, no organomegaly, + tenderness (mild tenderness to deep palpation in RLQ, no rigidity, no rebound) Extremities: normal range of motion, non-tender, normal inspection, no pedal edema, no calf tenderness Neurologic/Psychiatric: 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 nml as tested, no motor/sensory deficits, alert, normal mood/affect, oriented x 3 Skin: normal color, warm/dry, no rash Laboratory Results Last 24 Hours Test 03/25/18 23:44 03/26/18 00:02 03/26/18 07:18 03/26/18 11:54 Urine Color YELLOW Urine Appearance CLEAR Urine pH 6.5 Urine Specific [place] 1.020 Urine Protein NEG Urine Glucose (UA) NEG Urine Ketones NEG Urine Occult Blood TRACE Urine Nitrite NEG Urine Bilirubin NEG Urine Urobilinogen NEG Urine Leukocyte Esterase NEG Urine WBC (Auto) 1-5 /hpf Urine RBC (Auto) 0-4 /hpf Urine Hyaline Casts (Auto) 0 /lpf Urine Epithelial Cells (Auto) 0-5 /lpf Urine Bacteria (Auto) NEG Troponin I 0.298 ng/ml 0.309 ng/ml White Blood Count 7.02 K/uL Red Blood Count 3.83 M/uL Hemoglobin 11.6 g/dL Hematocrit 34.1 % Mean Corpuscular Volume 89.0 fL Mean Corpuscular Hemoglobin 30.3 pg Mean Corpuscular Hemoglobin Concent 34.0 g/dl Platelet Count 305 K/uL Mean Platelet Volume 8.7 fL Neutrophils (%) (Auto) 78.5 % Lymphocytes (%) (Auto) 13.0 % Monocytes (%) (Auto) 8.0 % Eosinophils (%) (Auto) 0.3 % Basophils (%) (Auto) 0.1 % Neutrophils # (Auto) 5.51 K/uL Lymphocytes # (Auto) 0.91 K/uL Monocytes # (Auto) 0.56 K/uL Eosinophils # (Auto) 0.02 K/uL Basophils # (Auto) 0.01 K/uL RDW Standard Deviation 46.4 fL RDW Coefficient of Variation 14.4 % Immature Granulocyte % (Auto) 0.1 % Immature Granulocyte # (Auto) 0.01 K/uL Prothrombin Time 10.8 SECONDS Prothromb Time International Ratio 1.0 Activated Partial Thromboplast Time 25.9 SECONDS Partial Thromboplastin Ratio 1.0 Sodium Level 131 mmol/L Potassium Level 3.8 mmol/L Chloride Level 96 mmol/L Carbon Dioxide Level 28 mmol/L Anion Gap 6.0 mmol/L Blood Urea Nitrogen 7 mg/dl Creatinine 0.60 mg/dl Est Creatinine Clear Calc Drug Dose 48.7 ml/min Estimated GFR () 95.0 Estimated GFR (Non- 82.0 BUN/Creatinine Ratio 10.8 Random Glucose 117 mg/dl Calcium Level 8.4 mg/dl Magnesium Level 1.9 mg/dl Lactic Acid Level 1.7 mmol/L Test 03/26/18 15:36 Troponin I 0.205 ng/ml Assessment and Plan 87 yo female who presents with abdominal pain, poor oral intake for a few days, constipation, hyponatremia and generalized weakness - Abdominal pain, 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 less pain today, abdomen soft, active bowel sounds lactic acid only 1.7 pain only 2 out of 10, no narcotics required allow patient a light diet, monitor for worsening pain with eating will need to ask vascular surgery to evaluate SMA stenosis there was no evidence of bowel ischemia on CT scan - Elevated troponin type II NSTEMI, demand ischemia, poor intake, dehydrated, hypertension patient denies chest pain/pressure, no EKG changes troponin leilani to 0.3, trending down at 0.2 most recently continue Plavix, Nitro patch, Pravachol follow up echo results - Hyponatremia, due to dehydration very limited oral intake last few days due to abdominal pain Na up to 131 today, noted to have low plasma osmolality on admission treat with NSS + 20mEq of KCl at 80cc/hr - Hypokalemia: K up to 3.8 will stop BID KCl dosing after today continue 20mEq in fluids - Anxiety-- Continue Lexapro 10 mg p.o. daily, lorazepam 0.5 mg p.o. twice daily, and trazodone 75 mg p.o. at bedtime. Muscle spasm-- Continue baclofen 5 mg p.o. 3 times daily.
[2018-03-27] VITALS (10 sets, daily range): BP systolic 133–192; BP diastolic 65–84; PULSE 80–92; TEMP 36.7–37.5; O2SAT 91–97
[2018-03-27] MEDS: NSS + 20MEQ KCL 1000ML 1,000 ML IV SCH ×2 (00:19→11:37)
[2018-03-27] MEDS: HydrALAZINE HCL 20 MG/ML VIAL IV. PRN ×3 (00:22→20:06)
[2018-03-27] MEDS: NITROGLYCERIN 2% OINTMENT 30GM TUBE EXT SCH ×2 (04:52→10:38)
[2018-03-27 06:39] LABS: BASO % 0.1 %; BASO ABS # 0.01 K/uL (0-0.2); EOS % 0.4 %; EOS ABS # 0.03 K/uL (0-0.5); HEMOGLOBIN 11.6 g/dL (12.0-16.0); IG# 0.01 K/uL (0.00-0.02); LYMPH % 9.3 %; LYMPH ABS # 0.72 K/uL (1.2-3.4); MEAN CELL VOLUME 88.3 fL (80-100); MEAN CORPUSCULAR HEMOGLOBIN 30.1 pg (25-34); MEAN CORPUSCULAR HGB CONC 34.1 g/dl (32-36); MEAN PLATELET VOLUME 8.6 fL (7.4-10.4); MONO % 7.8 %; NEUT % 82.3 %; NEUT ABS # 6.36 K/uL (1.4-6.5); PLATELET COUNT 351 K/uL (130-400); RED CELL DISTRIBUTION WIDTH CV 14.8 % (11.5-14.5); RED CELL DISTRIBUTION WIDTH SD 47.7 fL (36.4-46.3); WHITE BLOOD COUNT 7.73 K/uL (4.8-10.8)
[2018-03-27 07:16] LABS: CALCIUM 8.3 mg/dl (8.5-10.1); CREATININE 0.56 mg/dl (0.60-1.20); POTASSIUM 4.1 mmol/L (3.5-5.1)
[2018-03-27] MEDS: BACLOFEN 10 MG TAB PO SCH ×3 (07:55→20:10)
[2018-03-27] MEDS: CLOPIDOGREL BISULFATE 75 MG TAB PO SCH (07:57)
[2018-03-27] MEDS: ESCITALOPRAM OXALATE 10 MG TAB PO SCH (07:57)
[2018-03-27] MEDS: DOCUSATE SODIUM 100 MG CAP PO SCH ×2 (07:57→20:09)
[2018-03-27] MEDS: HEPARIN SOD 5000 UNIT/0.5 ML CARP SQ SCH ×2 (07:59→20:13)
[2018-03-27] MEDS: NICOTINE 21 MG/24 HR TDSY TD SCH (08:00)
--- NOTE | 2018-03-27 12:19 | CARDIOLOGY PROGRESS NOTE ---
DATE: 03/27/2018 SUBJECTIVE: Ms. Sanchez is resting comfortably in bed without complaints of chest pain or dyspnea. Her abdominal discomfort has improved. She is anxious for hospital discharge. OBJECTIVE: VITAL SIGNS: Blood pressure is 130-160/70-85. Heart rate is 80-90 beats per minute. Respiratory rate is 16 and the patient is afebrile at 36.9 degrees Celsius. Saturation 91% on room air. NECK: Supple with full but delayed carotid upstrokes. A transmitted murmur is noted bilaterally. CARDIOVASCULAR: Reveals a regular rhythm with a 2/6 crescendo-decrescendo systolic murmur heard loudest at the base. S2 is not audible at the apex. LUNGS: Clear without rales, rhonchi, or wheezes. ABDOMEN: Soft and nontender. EXTREMITIES: Reveal intact radial artery pulses bilaterally. There is no peripheral edema. DATA: CBC notes hemoglobin 11.6, hematocrit 34.6, white count 7.73, platelet count 351,000. Electrolytes note a sodium of 132, potassium 4.1, chloride 100, bicarbonate 24, BUN 7, creatinine 0.56, glucose 118. pvc monitor notes sinus rhythm with an occasional PVC. EKG this morning notes sinus rhythm with a short DE interval. There is evidence of left ventricular hypertrophy and repolarization abnormality. An old septal infarction cannot be excluded. IMPRESSION AND PLAN: 1. Abdominal complaints -- may represent intestinal angina. 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 2. Mild troponin I elevation -- trending down. I do not suspect this represents significant myocardial ischemia, may be a supply-demand mismatch. 3. Severe aortic stenosis. 4. Kfuf-pi-vqncdcut aortic insufficiency. 5. Mild left ventricular hypertrophy -- diastolic dysfunction. 6. Hypercholesterolemia. 7. Peripheral vascular disease. 8. Chronic obstructive pulmonary disease. 9. Cerebrovascular disease -- with less than 50% stenosis in the internal carotid arteries bilaterally. This was noted in July 2016. 10. Disposition -- Stable for hospital discharge from a cardiac perspective.
--- NOTE | 2018-03-27 12:43 | Progress Note ---
Subjective Date of Service: Mar 27, 2018. Subjective Pt evaluation today including: conversation w/ patient, conversation w/ family , physical exam, lab review, conversation w/ interior design consultant, review of inpatient medication list Pain: abdominal pain after eating PO Intake: poor Voiding: no voiding problems patient did not have any pain this morning, but had not eaten breakfast ordered breakfast tray, low fiber and low fat developed RLQ abdominal pain shortly after eating, 4 out of 10 reviewed labs, Trop down to 0.2, lactic acid normal 1.1 CBC and BMP unremarkable removed martin from scalp at the bedside discussed Vascular surgery consultation with patient and her daughter, they were in agreement Problem List Medical Problems: (1) Back pain Status: Acute (2) Chest pain Status: Acute (3) Closed head injury Status: Acute (4) Compression fracture of fifth lumbar vertebra with routine healing Status: Acute (5) Compression fracture of fourth lumbar vertebra with routinehealing Status: Acute (6) Compression fracture of thoracic vertebra Status: Acute (7) Constipation Status: Acute (8) Dehydration Status: Acute (9) Encounter for smoking cessation counseling Status: Acute (10) Facial droop Status: Acute (11) Fall Status: Acute (12) Heart murmur Status: Acute (13) Hypokalemia Status: Acute (14) Hyponatremia Status: Acute (15) Hyponatremia Status: Acute (16) Nausea & vomiting Status: Acute (17) Open wound of skin Status: Acute (18) Ptosis Status: Acute (19) Scalp laceration Status: Acute (20) Stroke-like symptoms Status: Acute Review of Systems Constitutional: + weight loss, + weakness, + fatigue Abdomen: + pain (RLQ, triggered by eating) All Other Systems: Reviewed and Negative Medications Current Inpatient Medications Medications (Trade) Dose Ordered Sig/Archana Route Start Time Stop Time Status Last Admin Dose Admin Ioversol (Optiray 320) 100 ml UD PRN IV 03/25/18 21:00 03/29/18 20:59 Hydralazine HCl (HydrALAZINE INJ) 10 mg Q4H PRN IV. 03/25/18 21:45 04/24/18 21:44 03/27/18 05:43 10 MG Nitroglycerin (Nitroglycerin 2% Oint) 1 inch Q6H EXT 03/26/18 04:00 04/25/18 03:59 03/27/18 10:38 1 INCH Acetaminophen (Tylenol Tab) 650 mg Q4H PRN PO 03/25/18 23:30 04/24/18 23:29 03/26/18 11:31 650 MG Albuterol (Ventolin Hfa Inhaler) 200 puffs DAILY PRN INH 03/25/18 23:30 04/24/18 23:29 Baclofen (Lioresal Tab) 5 mg TID PO 03/26/18 09:00 04/25/18 08:59 03/27/18 07:55 5 MG Clopidogrel Bisulfate (plAVix TAB) 75 mg DAILY PO 03/26/18 09:00 04/25/18 08:59 03/27/18 07:57 75 MG Docusate Sodium (coLACE CAP) 100 mg BID PO 03/26/18 09:00 04/25/18 08:59 03/27/18 07:57 100 MG Escitalopram Oxalate (Lexapro Tab) 10 mg DAILY PO 03/26/18 09:00 04/25/18 08:59 03/27/18 07:57 10 MG Pravastatin Sodium (Pravachol Tab) 10 mg HS PO 03/26/18 21:00 04/25/18 20:59 03/26/18 19:48 10 MG Senna (Senokot Tab) 17.2 mg HS PO 03/26/18 21:00 04/25/18 20:59 03/26/18 19:50 17.2 MG Trazodone HCl (Desyrel Tab) 75 mg HS PO 03/26/18 21:00 04/25/18 20:59 03/26/18 19:45 75 MG Ondansetron HCl (Zofran Inj) 4 mg Q6H PRN IV 03/25/18 23:45 04/24/18 23:44 Morphine Sulfate (MoRPHine SULFATE INJ) 4 mg Q4 PRN IV 03/26/18 11:45 04/09/18 11:44 Morphine Sulfate (MoRPHine SULFATE INJ) 2 mg Q4 PRN IV 03/26/18 11:45 04/09/18 11:44 Potassium Chloride/Sodium Chloride 1,000 ml @ 80 mls/hr [id number] IV 03/26/18 11:45 04/25/18 11:44 03/27/18 11:37 80 MLS/HR Heparin Sodium (Porcine) (Heparin Sq 5000 Unit/0.5ml) 5,000 unit Q12 SQ 03/27/18 09:00 04/26/18 08:59 03/27/18 07:59 5,000 UNIT Nicotine (Nicoderm Cq 21MG Patch) 1 patch QAM TD 03/27/18 09:00 04/26/18 08:59 03/27/18 08:00 1 PATCH Miscellaneous (Remove Nicoderm Patch) 1 ea HS N/A 03/27/18 21:00 04/26/18 20:59 Objective Vital Signs Date Time Temp Pulse Resp B/P (MAP) Pulse Ox O2 Delivery O2 Flow Rate FiO2 03/27/18 12:00 Room Air 03/27/18 11:40 36.8 84 20 161/65 (97) 96 Room Air 03/27/18 10:53 91 157/69 (98) 03/27/18 08:00 Room Air 03/27/18 07:11 36.9 92 16 133/84 (100) 91 Room Air 03/27/18 06:02 152/68 (96) 03/27/18 04:59 37.3 80 19 192/67 (108) 96 Room Air 03/27/18 04:53 97 Room Air 03/27/18 00:05 36.7 85 18 182/77 (112) 96 Room Air 03/27/18 00:00 97 Room Air 03/26/18 20:37 97 Room Air 03/26/18 18:11 85 166/74 (104) 03/26/18 16:00 Room Air 03/26/18 15:47 36.7 77 18 169/67 (101) 97 Room Air Physical Exam General Appearance: no apparent distress, + thin Eyes: normal inspection, EOMI, sclerae normal ENT: normal ENT inspection, hearing grossly normal, pharynx normal Neck: supple, no adenopathy, no JVD, trachea midline Respiratory/Chest: chest non-tender, lungs clear, normal breath sounds, no respiratory distress, no accessory muscle use Cardiovascular: regular rate, rhythm, no edema, no gallop, no JVD, no murmur Abdomen: normal bowel sounds, soft, no organomegaly, + tenderness (mild TTP in RLQ, no rigidity, no rebound) Extremities: normal range of motion, non-tender, normal inspection, no pedal edema, no calf tenderness, normal capillary refill, pelvis stable Neurologic/Psychiatric: numerical control 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-XII nml as tested, no motor/sensory deficits, alert, normal mood/affect, oriented x 3 Skin: normal color, warm/dry, no rash Laboratory Results Last 24 Hours Test 03/26/18 15:36 03/27/18 06:26 Troponin I 0.205 ng/ml White Blood Count 7.73 K/uL Red Blood Count 3.85 M/uL Hemoglobin 11.6 g/dL Hematocrit 34.0 % Mean Corpuscular Volume 88.3 fL Mean Corpuscular Hemoglobin 30.1 pg Mean Corpuscular Hemoglobin Concent 34.1 g/dl Platelet Count 351 K/uL Mean Platelet Volume 8.6 fL Neutrophils (%) (Auto) 82.3 % Lymphocytes (%) (Auto) 9.3 % Monocytes (%) (Auto) 7.8 % Eosinophils (%) (Auto) 0.4 % Basophils (%) (Auto) 0.1 % Neutrophils # (Auto) 6.36 K/uL Lymphocytes # (Auto) 0.72 K/uL Monocytes # (Auto) 0.60 K/uL Eosinophils # (Auto) 0.03 K/uL Basophils # (Auto) 0.01 K/uL RDW Standard Deviation 47.7 fL RDW Coefficient of Variation 14.8 % Immature Granulocyte % (Auto) 0.1 % Immature Granulocyte # (Auto) 0.01 K/uL Sodium Level 132 mmol/L Potassium Level 4.1 mmol/L Chloride Level 100 mmol/L Carbon Dioxide Level 24 mmol/L Anion Gap 8.0 mmol/L Blood Urea Nitrogen 7 mg/dl Creatinine 0.56 mg/dl Est Creatinine Clear Calc Drug Dose 52.1 ml/min Estimated GFR () 97.2 Estimated GFR (Non- 83.8 BUN/Creatinine Ratio 12.3 Random Glucose 118 mg/dl Lactic Acid Level 1.1 mmol/L Calcium Level 8.3 mg/dl Assessment and Plan 87 yo female who presents with abdominal pain, poor oral intake for a few days, constipation, hyponatremia and generalized weakness - Abdominal pain, 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 lactic acid normal at 1.1, there was no evidence of bowel ischemia on CT scan will need to ask vascular surgery to evaluate SMA stenosis, consult placed for tomorrow - Elevated troponin type II NSTEMI, demand ischemia, poor intake, dehydrated, hypertension patient denies chest pain/pressure, no EKG changes troponin leilani to 0.3, trending down at 0.2 yesterday continue Plavix, Nitro patch, Pravachol no further work up per cardiology, can be discharged from cardiac perspective - Hyponatremia, due to dehydration very limited oral intake last few days due to abdominal pain Na up slightly to 132 today, noted to have low plasma osmolality on admission treat with NSS + 20mEq of KCl at 80cc/hr continue fluids today since PO intake still suboptimal - Hypokalemia: K up to 4.1 continue 20mEq in fluids, repeat level tomorrow - Anxiety-- Continue Lexapro 10 mg p.o. daily, lorazepam 0.5 mg p.o. twice daily, and trazodone 75 mg p.o. at bedtime. Muscle spasm-- Continue baclofen 5 mg p.o. 3 times daily. recent fall with scalp laceration: martin removed at bedside today Plan: follow up vascular surgery consultation tomorrow, repeat labs in AM
[2018-03-27] MEDS: TRAZODONE HCL 50 MG TAB PO SCH (20:10)
[2018-03-27] MEDS: PRAVASTATIN SOD 10 MG TAB PO SCH (20:11)
[2018-03-27] MEDS: SENNA 8.6 MG TAB PO SCH (20:11)
[2018-03-28] VITALS (9 sets, daily range): BP systolic 130–192; BP diastolic 50–80; PULSE 70–88; TEMP 36.6–37.4; O2SAT 95–97
[2018-03-28] MEDS: HydrALAZINE HCL 20 MG/ML VIAL IV. PRN ×3 (00:03→21:55)
[2018-03-28] MEDS: MoRPHine SULFATE 4 MG/ML 1 ML CARP\\VIAL IV PRN (00:08)
[2018-03-28] MEDS: NSS + 20MEQ KCL 1000ML 1,000 ML IV SCH ×2 (00:12→12:17)
[2018-03-28 06:52] LABS: BASO % 0.3 %; BASO ABS # 0.02 K/uL (0-0.2); EOS % 0.6 %; EOS ABS # 0.04 K/uL (0-0.5); HEMATOCRIT 35.8 % (37-47); HEMOGLOBIN 11.9 g/dL (12.0-16.0); IG# 0.02 K/uL (0.00-0.02); LYMPH % 23.4 %; LYMPH ABS # 1.59 K/uL (1.2-3.4); MEAN CELL VOLUME 90.9 fL (80-100); MEAN CORPUSCULAR HEMOGLOBIN 30.2 pg (25-34); MEAN CORPUSCULAR HGB CONC 33.2 g/dl (32-36); MEAN PLATELET VOLUME 8.7 fL (7.4-10.4); MONO % 7.8 %; MONO ABS # 0.53 K/uL (0.11-0.59); NEUT % 67.6 %; NEUT ABS # 4.59 K/uL (1.4-6.5); PLATELET COUNT 357 K/uL (130-400); RED CELL DISTRIBUTION WIDTH SD 49.5 fL (36.4-46.3); WHITE BLOOD COUNT 6.79 K/uL (4.8-10.8)
[2018-03-28 07:18] LABS: CALCIUM 8.6 mg/dl (8.5-10.1); CREATININE 0.62 mg/dl (0.60-1.20); POTASSIUM 4.7 mmol/L (3.5-5.1)
[2018-03-28] MEDS: DOCUSATE SODIUM 100 MG CAP PO SCH ×2 (08:53→21:22)
[2018-03-28] MEDS: ESCITALOPRAM OXALATE 10 MG TAB PO SCH (08:53)
[2018-03-28] MEDS: NICOTINE 21 MG/24 HR TDSY TD SCH (08:53)
[2018-03-28] MEDS: CLOPIDOGREL BISULFATE 75 MG TAB PO SCH (08:53)
[2018-03-28] MEDS: BACLOFEN 10 MG TAB PO SCH ×3 (08:53→21:22)
[2018-03-28] MEDS: HEPARIN SOD 5000 UNIT/0.5 ML CARP SQ SCH ×2 (08:54→21:25)
--- NOTE | 2018-03-28 09:44 | Surgery Consultation ---
Consultation Date of Service Mar 28, 2018. Chief Complaint mesenteric artery stenosis noted on CT History of Present Illness The patient is a 87 year old female with multiple medical problems, admitted after a fall at home and generalized illness, seen in consultation today for incidental finding of mesenteric art stenosis noted on CT scan. Pt admits malaise and nausea at home. States she had some RLQ abd pain for about 15 minutes, but that resolved and has not recurred. Does not typically have abd pain at home after eating. Eats 3 normal sized meals daily. Feels she has lost some weight, but unable to tell how much. Denies VILLALPANDO, fever, chills, chest pain, SOB, D/C, rest pain, claudication, nonhealing wounds, other complaints. CT demonstrates long stenosis/occlusion of SMA, patent celiac. Vitals Vital Signs Past 12 Hours Date Time Temp Pulse Resp B/P (MAP) Pulse Ox O2 Delivery O2 Flow Rate FiO2 03/28/18 07:24 36.7 80 20 175/64 (101) 95 Room Air 182/68 (106) 03/28/18 04:06 36.6 80 17 165/67 (99) 97 Room Air 03/28/18 04:05 Room Air 03/28/18 00:01 37.0 88 19 192/80 (117) 96 Room Air 03/28/18 00:00 Room Air Allergies Coded Allergies: Adhesives (Verified Allergy, Intermediate, red, irritated skin, 03/21/18) Home Medications Scheduled Alendronate/Cholecalciferol (Fosamax+D 70MG/2800 Iu), 1 TABLET PO WK Baclofen (Baclofen), 5 MG PO TID Clopidogrel Bisulfate (Clopidogrel), 75 MG PO DAILY Docusate Sodium (Colace), 1 CAP PO BID Ergocalciferol (Vitamin D 56219 Unit), 50,000 UNIT PO WK Escitalopram Oxalate (Escitalopram Oxalate), 10 MG PO DAILY Lorazepam (Ativan), 0.5 MG PO BID Potassium Chloride Microencaps (Potassium Chloride Er), 20 MEQ PO DAILY Pravastatin Sodium (Pravastatin Sodium), 10 MG PO HS Senna (Senokot), 1 TAB PO HS Trazodone HCl (Trazodone HCl), 75 MG PO HS Scheduled PRN Acetaminophen (Tylenol), 500 MG PO q4-6h PRN for Pain Albuterol Hfa (Ventolin Hfa), 1 PUFF INH DAILY PRN for SOB/Wheezing Famotidine (Famotidine), 20 MG PO BID PRN for REFLUX Metoclopramide (Reglan), 10 MG PO Q6H PRN for Nausea Problem List Medical Problems: (1) Bleeding (2) H/O emphysema (3) Kidney disease (4) Mesenteric artery stenosis (5) NSTEMI (non-ST elevation myocardial infarction) (6) Stroke Surgical / Medical History Hx Cardiac Surgery: No Hx Abdominal Surgery: Yes (GALLBLADDER, appendectomy ) Hx Cancer Surgery: No Hx Thoracic Surgery: No Hx Orthopedic: Yes (SPINE) Hx Urinary Tract Surgery: No Past Medical/Surgical History: Heart Disease, High Cholesterol, Hypertension Family History Heart disease Social History Smoking Status: Current Every Day Smoker Hx Tobacco Use In Past Year?: Yes Hx Alcohol Use - Type & Amnt: No Hx Substance Use -Type & Amnt: No Review of Systems Constitutional: + malaise, No chills, No fever Skin: No change in color Eyes: No visual changes ENMT: No sore throat Respiratory: No cough, No SÁNCHEZ, No orthopnea, No short of breath Cardiovascular: No chest pain, No palpitations, No syncope Gastrointestinal: + abdominal pain (resolved), + nausea Genitourinary - Female: No dysuria, No hematuria Neurologic: No dizziness, No headache, No numbness, No tingling Physical Exam Constitutional: General Apperance: heathly-appearing, well-nourished, well-developed Level of Distress: NAD Psychiatric: Mental Status: active & alert, normal mood, normal affect Orientation: oriented except where noted, to time, to place, to person Memory: recent memory abnormal (vague), remote memory abnormal (vague) Head: normocephalic, atraumatic Eyes: EOM: EOMI ENMT: normal ENT inspection, hearing grossly normal Neck: supple, trachea midline Lungs: Respiratory effort: no dyspnea Auscultation: no wheezing, no rales/crackles Cardiovascular: Apical Impulse: not displaced Heart Auscultation: RRR, no rubs, no gallops Peripheral Pulses: Pulses: full and equal, in all extremities except if noted Bruits: none appreciated Carotid Pulse: normal on the left, normal on the right Brachial Pulses: normal on the left, normal on the right Radial Pulse: normal on the left, normal on the right Femoral Pulse: normal on the left, normal on the right Posterior Tibialis Pulse: decreased on the left, decreased on the right Dorsalis Pedis Pulse: decreased on the left, decreased on the right Abdomen: Bowel Sounds: normal Inspection & Palpation: soft, non-distended, no tenderness, guarding & rebound Musculoskeletal: normal strength (5/5 throughout), normal tone Extremities: Upper Right: no cyanosis, no edema, no varicosities Upper Left: no cyanosis, no edema, no varicosities Lower Right: no cyanosis, no edema, no varicosities Lower Left: no cyanosis, no edema, no varicosities Neurologic: Cranial Nerves: grossly intact Sensation: grossly intact Assessment and Plan ASSESSMENT and PLAN: SMA stenosis/occlusion Pt also seen by Dr Grubbs, does not recommend any vascular surgical intervention at this time, as pt is asymptomatic from her SMA lesion and would likely require extensive mesenteric bypass if sx develop. Please call if needed.
--- NOTE | 2018-03-28 12:15 | CARDIOLOGY PROGRESS NOTE ---
DATE: 03/28/2018 SUBJECTIVE: Mrs. Sanchez is resting comfortably in bed without complaints of chest pain or dyspnea. Still notes intermittent right lower quadrant pain. OBJECTIVE: VITAL SIGNS: Blood pressure ranges 130-190/70-80. Heart rate is regular at 80. Respiratory rate is 20 and the patient is afebrile at 36.9 degrees Celsius. Saturation is 96% on room air. NECK: Supple with delayed and prolonged carotid upstrokes. A transmitted murmur is noted bilaterally. CARDIOVASCULAR EXAMINATION: Reveals a regular rhythm with a 2/6 crescendo-decrescendo systolic murmur heard loudest at the base. S2 is not audible at the apex. LUNGS: Clear without rales, rhonchi, or wheezes. ABDOMEN: Soft with some tenderness to palpation in the right lower quadrant. EXTREMITIES: Reveal intact radial artery pulse bilaterally. There is no peripheral edema. DATA: CBC notes hemoglobin 11.9, hematocrit 35.8, white count 6.79, platelet count 357,000. Electrolytes note a sodium of 133, potassium 4.7, chloride 101, bicarb 25, BUN 7, creatinine 0.62, glucose 104. 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 IMPRESSION AND PLAN: 1. 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 Seen in consultation this morning by vascular surgery who feels this is not likely cause of her symptoms. 2. Mild troponin elevation -- likely a supply-demand mismatch realizing her left ventricular hypertrophy and severe aortic stenosis. Did not suspect this represents myocardial ischemia. 3. Severe aortic stenosis. 4. [id number]-uitfvpxm aortic insufficiency. 5. Mild left ventricular hypertrophy -- with diastolic dysfunction. 6. Hypercholesterolemia. 7. Peripheral vascular disease. 8. Chronic obstructive pulmonary disease. 9. Cerebrovascular disease -- less than 50% stenoses in the internal carotids bilaterally. This was on a carotid study performed in July 2016.
[2018-03-28] MEDS: PRAVASTATIN SOD 10 MG TAB PO SCH (21:22)
[2018-03-28] MEDS: TRAZODONE HCL 50 MG TAB PO SCH (21:22)
[2018-03-28] MEDS: ACETAMINOPHEN 325 MG TAB PO PRN (21:23)
[2018-03-28] MEDS: SENNA 8.6 MG TAB PO SCH (21:23)
--- NOTE | 2018-03-28 23:26 | Progress Note ---
Subjective Date of Service: Mar 28, 2018. Subjective Pt evaluation today including: conversation w/ patient, physical exam Pleasant 87 yo female reports feeling well. She states her abdominal pain has improved significantly. She has not had an episode today. Patient tolerated her diet. Problem List Medical Problems: (1) Back pain Status: Acute (2) Chest pain Status: Acute (3) Closed head injury Status: Acute (4) Compression fracture of fifth lumbar vertebra with routine healing Status: Acute (5) Compression fracture of fourth lumbar vertebra with routinehealing Status: Acute (6) Compression fracture of thoracic vertebra Status: Acute (7) Constipation Status: Acute (8) Dehydration Status: Acute (9) Encounter for smoking cessation counseling Status: Acute (10) Facial droop Status: Acute (11) Fall Status: Acute (12) Heart murmur Status: Acute (13) Hypokalemia Status: Acute (14) Hyponatremia Status: Acute (15) Hyponatremia Status: Acute (16) Nausea & vomiting Status: Acute (17) Open wound of skin Status: Acute (18) Ptosis Status: Acute (19) Scalp laceration Status: Acute (20) Stroke-like symptoms Status: Acute Review of Systems Constitutional: No fever, No chills Eyes: No worsening of vision ENT: No hearing loss Cardiac: No chest pain Abdomen: + pain Musculoskeletal: No joint pain Neurologic: No memory loss Psychiatric: No depression symptoms Heme: No abnormal bleeding/bruising Endo: + fatigue Skin: No rash All Other Systems: Reviewed and Negative Objective Vital Signs Date Time Temp Pulse Resp B/P (MAP) Pulse Ox O2 Delivery O2 Flow Rate FiO2 03/28/18 21:55 166/69 (101) 03/28/18 20:05 96 Room Air 03/28/18 19:31 37.4 82 18 186/50 (95) 96 Room Air 03/28/18 16:00 Room Air 03/28/18 15:05 36.7 70 16 157/72 (100) 97 Room Air 03/28/18 12:00 Room Air 03/28/18 11:20 36.9 80 20 130/71 (90) 96 Room Air 03/28/18 08:00 Room Air 03/28/18 07:24 36.7 80 20 175/64 (101) 95 Room Air 182/68 (106) 03/28/18 04:06 36.6 80 17 165/67 (99) 97 Room Air 03/28/18 04:05 Room Air 03/28/18 00:01 37.0 88 19 192/80 (117) 96 Room Air 03/28/18 00:00 Room Air Physical Exam Comments: General Appearance: no apparent distress, + thin Eyes: normal inspection, EOMI, sclerae normal ENT: normal ENT inspection, hearing grossly normal, pharynx normal Neck: supple, no adenopathy, no JVD, trachea midline Respiratory/Chest: chest non-tender, lungs clear, normal breath sounds, no respiratory distress, no accessory muscle use Cardiovascular: regular rate, rhythm, no edema, no gallop, no JVD, no murmur Abdomen: normal bowel sounds, soft, no organomegaly, + tenderness (mild TTP in RLQ, no rigidity, no rebound) Extremities: normal range of motion, non-tender, normal inspection, no pedal edema, no calf tenderness, normal capillary refill, pelvis stable Neurologic/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: 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 as tested, no motor/sensory deficits, alert, normal mood/affect, oriented x 3 Skin: normal color, warm/dry, no rash Laboratory Results Last 24 Hours Test 03/28/18 06:31 White Blood Count 6.79 K/uL Red Blood Count 3.94 M/uL Hemoglobin 11.9 g/dL Hematocrit 35.8 % Mean Corpuscular Volume 90.9 fL Mean Corpuscular Hemoglobin 30.2 pg Mean Corpuscular Hemoglobin Concent 33.2 g/dl Platelet Count 357 K/uL Mean Platelet Volume 8.7 fL Neutrophils (%) (Auto) 67.6 % Lymphocytes (%) (Auto) 23.4 % Monocytes (%) (Auto) 7.8 % Eosinophils (%) (Auto) 0.6 % Basophils (%) (Auto) 0.3 % Neutrophils # (Auto) 4.59 K/uL Lymphocytes # (Auto) 1.59 K/uL Monocytes # (Auto) 0.53 K/uL Eosinophils # (Auto) 0.04 K/uL Basophils # (Auto) 0.02 K/uL RDW Standard Deviation 49.5 fL RDW Coefficient of Variation 15.0 % Immature Granulocyte % (Auto) 0.3 % Immature Granulocyte # (Auto) 0.02 K/uL Sodium Level 133 mmol/L Potassium Level 4.7 mmol/L Chloride Level 101 mmol/L Carbon Dioxide Level 25 mmol/L Anion Gap 7.0 mmol/L Blood Urea Nitrogen 7 mg/dl Creatinine 0.62 mg/dl Est Creatinine Clear Calc Drug Dose 48.6 ml/min Estimated GFR () 94.0 Estimated GFR (Non- 81.1 BUN/Creatinine Ratio 10.7 Random Glucose 104 mg/dl Calcium Level 8.6 mg/dl Assessment and Plan 87 yo female who presents with abdominal pain, poor oral intake for a few days, constipation, hyponatremia and generalized weakness - Abdominal pain, 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 Patient has had no pain today. lactic acid normal at 1.1, there was no evidence of bowel ischemia on CT scan Patient was seen by vascular. Given that pain is improved, risks do not outweigh benefits. May reconsider if patient becomes more symptomatic. - Elevated troponin type II NSTEMI, demand ischemia, poor intake, dehydrated, hypertension patient denies chest pain/pressure, no EKG changes troponin leilani to 0.3, trending down at 0.2 yesterday continue Plavix, Nitro patch, Pravachol no further work up per cardiology, can be discharged from cardiac perspective - Hyponatremia, due to dehydration very limited oral intake last few days due to abdominal pain Na up slightly to 133 today, noted to have low plasma osmolality on admission treat with NSS + 20mEq of KCl at 80cc/hr continue fluids today since PO intake still suboptimal - Hypokalemia: K up to 4.1 resolved - Anxiety-- Continue Lexapro 10 mg p.o. daily, lorazepam 0.5 mg p.o. twice daily, and trazodone 75 mg p.o. at bedtime. Muscle spasm-- Continue baclofen 5 mg p.o. 3 times daily. recent fall with scalp laceration: martin removed at bedside today Spent 35 minutes in management of patient.
[2018-03-29] VITALS (10 sets, daily range): BP systolic 125–199; BP diastolic 62–73; PULSE 62–87; TEMP 36.5–37.3; O2SAT 93–97
[2018-03-29] MEDS: NSS + 20MEQ KCL 1000ML 1,000 ML IV SCH ×2 (00:16→12:24)
[2018-03-29] MEDS: HydrALAZINE HCL 20 MG/ML VIAL IV. PRN (06:07)
[2018-03-29] MEDS: MoRPHine SULFATE 4 MG/ML 1 ML CARP\\VIAL IV PRN ×4 (06:43→20:39)
[2018-03-29] MEDS: CLOPIDOGREL BISULFATE 75 MG TAB PO SCH (08:14)
[2018-03-29] MEDS: BACLOFEN 10 MG TAB PO SCH ×3 (08:14→20:38)
[2018-03-29] MEDS: ESCITALOPRAM OXALATE 10 MG TAB PO SCH (08:14)
[2018-03-29] MEDS: NICOTINE 21 MG/24 HR TDSY TD SCH (08:14)
[2018-03-29] MEDS: DOCUSATE SODIUM 100 MG CAP PO SCH ×2 (08:14→20:38)
[2018-03-29] MEDS: HEPARIN SOD 5000 UNIT/0.5 ML CARP SQ SCH ×2 (08:16→20:40)
[2018-03-29] MEDS ORDERED: LISINOPRIL 10 MG TAB PO ONE (08:56)
[2018-03-29] MEDS ORDERED: MAGNESIUM HYDROXIDE SUSP 30 ML UDC PO ONE (09:04)
--- NOTE | 2018-03-29 09:06 | Progress Note ---
Subjective Date of Service: Mar 29, 2018. Subjective Pt evaluation today including: conversation w/ patient, physical exam 87 yo female worsening abd. pain for past few hours. She received morphine Patient is sharp, located in right flank. She reports belly is more distended. Problem List Medical Problems: (1) Back pain Status: Acute (2) Chest pain Status: Acute (3) Closed head injury Status: Acute (4) Compression fracture of fifth lumbar vertebra with routine healing Status: Acute (5) Compression fracture of fourth lumbar vertebra with routinehealing Status: Acute (6) Compression fracture of thoracic vertebra Status: Acute (7) Constipation Status: Acute (8) Dehydration Status: Acute (9) Encounter for smoking cessation counseling Status: Acute (10) Facial droop Status: Acute (11) Fall Status: Acute (12) Heart murmur Status: Acute (13) Hypokalemia Status: Acute (14) Hyponatremia Status: Acute (15) Hyponatremia Status: Acute (16) Nausea & vomiting Status: Acute (17) Open wound of skin Status: Acute (18) Ptosis Status: Acute (19) Scalp laceration Status: Acute (20) Stroke-like symptoms Status: Acute Review of Systems Constitutional: No fever, No chills Eyes: No worsening of vision ENT: No hearing loss Cardiac: No chest pain Abdomen: + pain Musculoskeletal: No joint pain Neurologic: No memory loss Psychiatric: No depression symptoms Heme: No abnormal bleeding/bruising Endo: + fatigue Skin: No rash All Other Systems: Reviewed and Negative Objective Vital Signs Date Time Temp Pulse Resp B/P (MAP) Pulse Ox O2 Delivery O2 Flow Rate FiO2 03/29/18 07:19 36.9 80 20 146/68 (94) 95 Room Air 03/29/18 07:11 77 162/73 (102) 03/29/18 06:05 76 199/70 (113) 03/29/18 04:15 37.0 84 19 191/73 (112) 95 Room Air 03/29/18 04:05 Room Air 03/29/18 00:05 96 Room Air 03/28/18 23:33 37.1 80 17 177/72 (107) 96 Room Air 03/28/18 21:55 166/69 (101) 03/28/18 20:05 96 Room Air 03/28/18 19:31 37.4 82 18 186/50 (95) 96 Room Air 03/28/18 16:00 Room Air 03/28/18 15:05 36.7 70 16 157/72 (100) 97 Room Air 03/28/18 12:00 Room Air 03/28/18 11:20 36.9 80 20 130/71 (90) 96 Room Air Physical Exam Comments: General Appearance: no apparent distress, + thin Eyes: normal inspection, EOMI, sclerae normal ENT: normal ENT inspection, hearing grossly normal, pharynx normal Neck: supple, no adenopathy, no JVD, trachea midline Respiratory/Chest: chest non-tender, lungs clear, normal breath sounds, no respiratory distress, no accessory muscle use Cardiovascular: regular rate, rhythm, no edema, no gallop, no JVD, no murmur Abdomen: normal bowel sounds, right side has distention, soft, no organomegaly , + tenderness (mild TTP in RLQ, no rigidity, no rebound) Extremities: normal range of motion, non-tender, normal inspection, no pedal edema, no calf tenderness, normal capillary refill, pelvis stable Neurologic/Psychiatric: 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 will give medicine to help promote BM. Added milk of Magnesia. D/W patient, she at this time does not want intervention done. awaiting input from pain management for possible nerve block. - Elevated troponin type II NSTEMI, demand ischemia, poor intake, dehydrated, hypertension patient denies chest pain/pressure, no EKG changes troponin leilani to 0.3, trending down at 0.2 yesterday continue Plavix, Nitro patch, Pravachol no further work up per cardiology, can be discharged from cardiac perspective - Hyponatremia, due to dehydration very limited oral intake last few days due to abdominal pain Na up slightly to 133 today, noted to have low plasma osmolality on admission treat with NSS + 20mEq of KCl at 80cc/hr continue fluids today since PO intake still suboptimal - Hypokalemia: K up to 4.1 resolved - Anxiety-- Continue Lexapro 10 mg p.o. daily, lorazepam 0.5 mg p.o. twice daily, and trazodone 75 mg p.o. at bedtime. Muscle spasm-- Continue baclofen 5 mg p.o. 3 times daily. recent fall with scalp laceration: martin removed at bedside today Spent 50 minutes in management of patient discussing with family and palliative care.
--- NOTE | 2018-03-29 16:12 | Palliative Care Consultation ---
Consultation Date of Consultation: Mar 29, 2018. Requesting Physician: Dr. Adams Attending Physician: Dr. Adams Reason for Consultation: Goals of care, pain History of Present Illness This 87 year old female patient with PMH listed below, presented to the hospital three days ago with abnormal labs done at her PCP's office. She c/o weakness, loss of appetite and severe abdominal pain. CXR showed cardiomegaly and emphysema. 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 Vascular surgery was consulted who determined along with patient and her daughter that risk of surgery outweighed benefit. Palliative care is now consulted for patient's pain and goals of care. I met with the patient and her daughter Bailey in room 242-2. Patient c/o abdominal pain at 8/10 that does improve to about 4-5/10 with morphine. At times the pain is 10/10. Currently, she is rather comfortable and pleasant/ talkative. Patient's goal is to get pain under control so that she can go home, be comfortable, and have quality of life for whatever time she does have left. We discussed POLST form and hospice care. POLST form completed and patient is agreeable to a hospice referral. 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 (19) Nausea & vomiting (20) NSTEMI (non-ST elevation myocardial infarction) (21) Open wound of skin (22) Open wound of skin (23) Ptosis (24) Scalp laceration (25) Stroke (26) Stroke-like symptoms Social History Smoking Status: Current Every Day Smoker History of Alcohol Use: No Drug Use: none Marital Status: Housing Status: lives with family Occupation Status: retired Review of Systems Constitutional: + weakness, No fever, No chills ENT: No trouble swallowing Respiratory: No cough, No wheezing, No shortness of breath Cardiac: No chest pain, No edema Abdomen: + pain, + nausea, + vomiting, + constipation Female : No problem reported Psychiatric: No depression symptoms, No anxiety Allergies Coded Allergies: Adhesives (Verified Allergy, Intermediate, red, irritated skin, 03/21/18) Medications Current Inpatient Medications Medications (Trade) Dose Ordered Sig/Archana Route Start Time Stop Time Status Last Admin Dose Admin Ioversol (Optiray 320) 100 ml UD PRN IV 03/25/18 21:00 03/29/18 20:59 Hydralazine HCl (HydrALAZINE INJ) 10 mg Q4H PRN IV. 03/25/18 21:45 04/24/18 21:44 03/29/18 06:07 10 MG Acetaminophen (Tylenol Tab) 650 mg Q4H PRN PO 03/25/18 23:30 04/24/18 23:29 03/28/18 21:23 650 MG Albuterol (Ventolin Hfa Inhaler) 200 puffs DAILY PRN INH 03/25/18 23:30 04/24/18 23:29 Baclofen (Lioresal Tab) 5 mg TID PO 03/26/18 09:00 04/25/18 08:59 03/29/18 14:05 5 MG Clopidogrel Bisulfate (plAVix TAB) 75 mg DAILY PO 03/26/18 09:00 04/25/18 08:59 03/29/18 08:14 75 MG Docusate Sodium (coLACE CAP) 100 mg BID PO 03/26/18 09:00 04/25/18 08:59 03/29/18 08:14 100 MG Escitalopram Oxalate (Lexapro Tab) 10 mg DAILY PO 03/26/18 09:00 04/25/18 08:59 03/29/18 08:14 10 MG Pravastatin Sodium (Pravachol Tab) 10 mg HS PO 03/26/18 21:00 04/25/18 20:59 03/28/18 21:22 10 MG Senna (Senokot Tab) 17.2 mg HS PO 03/26/18 21:00 04/25/18 20:59 03/28/18 21:23 17.2 MG Trazodone HCl (Desyrel Tab) 75 mg HS PO 03/26/18 21:00 04/25/18 20:59 03/28/18 21:22 75 MG Ondansetron HCl (Zofran Inj) 4 mg Q6H PRN IV 03/25/18 23:45 04/24/18 23:44 03/28/18 00:10 4 MG Morphine Sulfate (MoRPHine SULFATE INJ) 4 mg Q4 PRN IV 03/26/18 11:45 04/09/18 11:44 03/29/18 06:43 4 MG Morphine Sulfate (MoRPHine SULFATE INJ) 2 mg Q4 PRN IV 03/26/18 11:45 04/09/18 11:44 03/29/18 10:48 2 MG Potassium Chloride/Sodium Chloride 1,000 ml @ 80 mls/hr [id number] IV 03/26/18 11:45 04/25/18 11:44 03/29/18 12:24 80 MLS/HR Heparin Sodium (Porcine) (Heparin Sq 5000 Unit/0.5ml) 5,000 unit Q12 SQ 03/27/18 09:00 04/26/18 08:59 03/29/18 08:16 5,000 UNIT Nicotine (Nicoderm Cq 21MG Patch) 1 patch QAM TD 03/27/18 09:00 04/26/18 08:59 03/29/18 08:14 1 PATCH Miscellaneous (Remove Nicoderm Patch) 1 ea HS N/A 03/27/18 21:00 04/26/18 20:59 03/28/18 21:32 1 EA Lisinopril (Zestril Tab) 10 mg QAM PO 03/30/18 09:00 04/29/18 08:59 Magnesium Hydroxide (Milk Of Magnesia Susp) 30 ml Q6H PRN PO 03/29/18 09:15 04/28/18 09:14 Lorazepam (Ativan Tab) 0.5 mg BID PRN PO 03/29/18 15:00 04/28/18 14:59 Physical Exam Date Time Temp Pulse Resp B/P (MAP) Pulse Ox O2 Delivery O2 Flow Rate FiO2 03/29/18 12:00 Room Air 03/29/18 11:20 36.9 79 20 131/62 (85) 97 Room Air 03/29/18 08:00 Room Air 03/29/18 07:19 36.9 80 20 146/68 (94) 95 Room Air 03/29/18 07:11 77 162/73 (102) 03/29/18 06:05 76 199/70 (113) 03/29/18 04:15 37.0 84 19 191/73 (112) 95 Room Air 03/29/18 04:05 Room Air 03/29/18 00:05 96 Room Air 03/28/18 23:33 37.1 80 17 177/72 (107) 96 Room Air 03/28/18 21:55 166/69 (101) 03/28/18 20:05 96 Room Air 03/28/18 19:31 37.4 82 18 186/50 (95) 96 Room Air General Appearance: no apparent distress, + thin ENT: hearing grossly normal (mildly hard of hearing) Neck: supple, no JVD Respiratory: lungs clear, no respiratory distress, no accessory muscle use, + decreased breath sounds Cardiovascular: regular rate, rhythm, no edema, + normal peripheral pulses Abdomen: normal bowel sounds, + tenderness Neurologic/Psychiatric: alert, normal mood/affect, oriented x 3 Skin: normal color Assessment & Plan Problem list: Severe abdominal pain 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 -Patient's goal is to go home for comfort care and does not want to return to the hospital. I discussed at lengthy with her and her daughter Bailey Gatica about hospice care once she gets home. They will let us know if they decide to proceed with hospice, which I do recommend given the risk of bowel if mesenteric artery is occluded. -Recommend pain management consult before making changes to narcotics/switching to long-acting pain meds. They may be able to offer patient a celiac plexus or mesenteric block. -POLST form completed as follows: DNR, limited additional interventions, abx with comfort as the goal, trial period of artificial hydration/nutrition. -Will continue to follow. Thank you kindly for this consult. Total time spent 70 minutes with >50% of time spent at bedside with patient and family counseling and discussing goals of care as well as completing POLST form.
[2018-03-29] MEDS: PRAVASTATIN SOD 10 MG TAB PO SCH (20:38)
[2018-03-29] MEDS: TRAZODONE HCL 50 MG TAB PO SCH (20:38)
[2018-03-29] MEDS: SENNA 8.6 MG TAB PO SCH (20:38)
[2018-03-29] MEDS: MAGNESIUM HYDROXIDE SUSP 30 ML UDC PO PRN (20:39)
[2018-03-30] VITALS: O2SAT 93
[2018-03-30 04:21] VITALS: BP 156/74; PULSE 90; TEMP 37; O2SAT 91
[2018-03-30 07:00] VITALS: BP_SYST 177; BP_SYST 180; BP_DIAS 71; PULSE 95; TEMP 37.4; O2SAT 91
[2018-03-30] MEDS: ESCITALOPRAM OXALATE 10 MG TAB PO SCH (08:00)
[2018-03-30] MEDS: DOCUSATE SODIUM 100 MG CAP PO SCH ×2 (08:01→20:23)
[2018-03-30] MEDS: BACLOFEN 10 MG TAB PO SCH ×3 (08:01→20:24)
[2018-03-30] MEDS: CLOPIDOGREL BISULFATE 75 MG TAB PO SCH (08:02)
[2018-03-30] MEDS: LISINOPRIL 10 MG TAB PO SCH (08:02)
[2018-03-30] MEDS: NICOTINE 21 MG/24 HR TDSY TD SCH (08:03)
[2018-03-30] MEDS: HEPARIN SOD 5000 UNIT/0.5 ML CARP SQ SCH ×2 (08:10→20:27)
[2018-03-30] MEDS: NSS + 20MEQ KCL 1000ML 1,000 ML IV SCH ×2 (08:16→14:36)
[2018-03-30 11:50] VITALS: BP 176/68; PULSE 76; TEMP 37.5; O2SAT 94
[2018-03-30] MEDS: MoRPHine SULFATE 4 MG/ML 1 ML CARP\\VIAL IV PRN (11:58)
[2018-03-30] MEDS: LORAZEPAM 0.5 MG TAB PO PRN ×2 (14:36→20:35)
[2018-03-30] MEDS ORDERED: LACTULOSE SYRUP 30 GM/45 ML UDP PO STA (16:56)
[2018-03-30 17:24] LABS: HEMOGLOBIN 11.3 g/dL (12.0-16.0); MEAN CELL VOLUME 90.2 fL (80-100); MEAN CORPUSCULAR HGB CONC 33.2 g/dl (32-36); MEAN PLATELET VOLUME 8.7 fL (7.4-10.4); PLATELET COUNT 371 K/uL (130-400); RED CELL DISTRIBUTION WIDTH CV 15.1 % (11.5-14.5); RED CELL DISTRIBUTION WIDTH SD 49.3 fL (36.4-46.3); WHITE BLOOD COUNT 11.28 K/uL (4.8-10.8)
[2018-03-30 17:41] LABS: CALCIUM 8.6 mg/dl (8.5-10.1); CREATININE 0.76 mg/dl (0.60-1.20); POTASSIUM 4.1 mmol/L (3.5-5.1)
[2018-03-30] MEDS: HydrALAZINE HCL 20 MG/ML VIAL IV. PRN (18:37)
[2018-03-30 18:39] VITALS: BP 182/84
[2018-03-30 19:03] VITALS: BP 141/75; PULSE 100; TEMP 36.6; O2SAT 91
[2018-03-30] MEDS: PRAVASTATIN SOD 10 MG TAB PO SCH (20:23)
[2018-03-30] MEDS: SENNA 8.6 MG TAB PO SCH (20:25)
[2018-03-30] MEDS: TRAZODONE HCL 50 MG TAB PO SCH (20:25)
--- NOTE | 2018-03-30 22:36 | Progress Note ---
Subjective Date of Service: Mar 30, 2018. Subjective Pt evaluation today including: conversation w/ patient, physical exam 87 yo female continues abdominal pain. Pain appears worse today with worsening distention. Problem List Medical Problems: (1) Back pain Status: Acute (2) Chest pain Status: Acute (3) Closed head injury Status: Acute (4) Compression fracture of fifth lumbar vertebra with routine healing Status: Acute (5) Compression fracture of fourth lumbar vertebra with routinehealing Status: Acute (6) Compression fracture of thoracic vertebra Status: Acute (7) Constipation Status: Acute (8) Dehydration Status: Acute (9) Encounter for smoking cessation counseling Status: Acute (10) Facial droop Status: Acute (11) Fall Status: Acute (12) Heart murmur Status: Acute (13) Hypokalemia Status: Acute (14) Hyponatremia Status: Acute (15) Hyponatremia Status: Acute (16) Nausea & vomiting Status: Acute (17) Open wound of skin Status: Acute (18) Ptosis Status: Acute (19) Scalp laceration Status: Acute (20) Stroke-like symptoms Status: Acute Review of Systems Constitutional: No fever, No chills Eyes: No worsening of vision ENT: No hearing loss Cardiac: No chest pain Abdomen: + pain Musculoskeletal: No joint pain Neurologic: No memory loss Psychiatric: No depression symptoms Heme: No abnormal bleeding/bruising Endo: + fatigue Skin: No rash All Other Systems: Reviewed and Negative Objective Vital Signs Date Time Temp Pulse Resp B/P (MAP) Pulse Ox O2 Delivery O2 Flow Rate FiO2 03/30/18 20:00 Room Air 03/30/18 19:03 36.6 100 20 141/75 (97) 91 Room Air 03/30/18 18:39 182/84 (116) 03/30/18 16:24 Room Air 03/30/18 12:39 Room Air 03/30/18 11:50 37.5 76 20 176/68 (104) 94 Room Air 03/30/18 08:00 Room Air 03/30/18 07:00 37.4 95 20 180/71 (107) 91 Room Air 177/71 (106) 03/30/18 04:21 37.0 90 18 156/74 (101) 91 Room Air 03/30/18 04:10 Room Air 03/30/18 00:00 93 Room Air 03/29/18 23:20 37.3 87 24 153/63 (93) 93 Room Air Physical Exam Comments: General Appearance: no apparent distress, + thin Eyes: normal inspection, EOMI, sclerae normal ENT: normal ENT inspection, hearing grossly normal, pharynx normal Neck: supple, no adenopathy, no JVD, trachea midline Respiratory/Chest: chest non-tender, lungs clear, normal breath sounds, no respiratory distress, no accessory muscle use Cardiovascular: regular rate, rhythm, no edema, no gallop, no JVD, no murmur Abdomen: normal bowel sounds, right side has more distention, soft, no organomegaly, + tenderness (mild TTP in RLQ, no rigidity, no rebound) Extremities: normal range of motion, non-tender, normal inspection, no pedal edema, no calf tenderness, normal capillary refill, pelvis stable Neurologic/Psychiatric: c.o.d. clerk II-XII nml as tested, no motor/sensory deficits, alert, normal mood/affect, oriented x 3 Skin: normal color, warm/dry, no rash Laboratory Results Last 24 Hours Test 03/30/18 17:09 White Blood Count 11.28 K/uL Red Blood Count 3.77 M/uL Hemoglobin 11.3 g/dL Hematocrit 34.0 % Mean Corpuscular Volume 90.2 fL Mean Corpuscular Hemoglobin 30.0 pg Mean Corpuscular Hemoglobin Concent 33.2 g/dl RDW Standard Deviation 49.3 fL RDW Coefficient of Variation 15.1 % Platelet Count 371 K/uL Mean Platelet Volume 8.7 fL Sodium Level 128 mmol/L Potassium Level 4.1 mmol/L Chloride Level 92 mmol/L Carbon Dioxide Level 27 mmol/L Anion Gap 9.0 mmol/L Blood Urea Nitrogen 7 mg/dl Creatinine 0.76 mg/dl Est Creatinine Clear Calc Drug Dose 39.2 ml/min Estimated GFR () 81.7 Estimated GFR (Non- 70.5 BUN/Creatinine Ratio 8.6 Random Glucose 113 mg/dl Calcium Level 8.6 mg/dl Assessment and Plan 87 yo female who presents with abdominal pain, poor oral intake for a few days, constipation, hyponatremia and generalized weakness - Abdominal pain, 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 WBC is elevated. D/W vascular, she deem surgery is too high risk as she would require bypass lactic acid normal at 1.1, there was no evidence of bowel ischemia on CT scan Pain may be worse from distention from possible constipation. will give medicine to help promote BM. Added milk of Magnesia. will add lactulose today. D/W patient, she at this time does not want intervention done. awaiting input from pain management for possible nerve block. - Elevated troponin type II NSTEMI, demand ischemia, poor intake, dehydrated, hypertension patient denies chest pain/pressure, no EKG changes troponin leilani to 0.3, trending down at 0.2 yesterday continue Plavix, Nitro patch, Pravachol no further work up per cardiology, can be discharged from cardiac perspective - Hyponatremia, due to dehydration very limited oral intake last few days due to abdominal pain Na up slightly to 133 today, noted to have low plasma osmolality on admission treat with NSS + 20mEq of KCl at 80cc/hr continue fluids today since PO intake still suboptimal - Hypokalemia: K up to 4.1 resolved - Anxiety-- Continue Lexapro 10 mg p.o. daily, lorazepam 0.5 mg p.o. twice daily, and trazodone 75 mg p.o. at bedtime. Muscle spasm-- Continue baclofen 5 mg p.o. 3 times daily. recent fall with scalp laceration: martin removed at bedside today Spent 35 minutes on this case.
[2018-03-31] VITALS (11 sets, daily range): BP systolic 128–201; BP diastolic 63–109; PULSE 58–99; TEMP 36.4–37.3; O2SAT 91–99
[2018-03-31] MEDS: HydrALAZINE HCL 20 MG/ML VIAL IV. PRN ×3 (03:43→23:46)
[2018-03-31] MEDS: MoRPHine SULFATE 4 MG/ML 1 ML CARP\\VIAL IV PRN (04:06)
[2018-03-31] MEDS: NSS + 20MEQ KCL 1000ML 1,000 ML IV SCH ×2 (04:44→17:12)
[2018-03-31 07:18] LABS: HEMOGLOBIN 10.4 g/dL (12.0-16.0); MEAN CELL VOLUME 89.1 fL (80-100); MEAN CORPUSCULAR HEMOGLOBIN 29.9 pg (25-34); MEAN CORPUSCULAR HGB CONC 33.5 g/dl (32-36); MEAN PLATELET VOLUME 8.7 fL (7.4-10.4); PLATELET COUNT 301 K/uL (130-400); RED CELL DISTRIBUTION WIDTH CV 15.1 % (11.5-14.5); RED CELL DISTRIBUTION WIDTH SD 48.8 fL (36.4-46.3); WHITE BLOOD COUNT 9.27 K/uL (4.8-10.8)
[2018-03-31 07:45] LABS: CALCIUM 7.7 mg/dl (8.5-10.1); CREATININE 0.59 mg/dl (0.60-1.20); PHOSPHORUS 3.2 mg/dl (2.5-4.9); POTASSIUM 3.9 mmol/L (3.5-5.1)
[2018-03-31] MEDS ORDERED: HYDROCODONE/ACETAMIN 5/325MG TAB PO PRN (08:45)
[2018-03-31] MEDS ORDERED: FENTANYL 12 MCG/HR TDSY TD SCH (09:00)
[2018-03-31] MEDS: MAGNESIUM HYDROXIDE SUSP 30 ML UDC PO PRN (09:21)
[2018-03-31] MEDS: CLOPIDOGREL BISULFATE 75 MG TAB PO SCH (09:22)
[2018-03-31] MEDS: BACLOFEN 10 MG TAB PO SCH ×3 (09:22→21:19)
[2018-03-31] MEDS: ESCITALOPRAM OXALATE 10 MG TAB PO SCH (09:22)
[2018-03-31] MEDS: DOCUSATE SODIUM 100 MG CAP PO SCH ×2 (09:22→21:18)
[2018-03-31] MEDS: LISINOPRIL 10 MG TAB PO SCH (09:24)
[2018-03-31] MEDS: HEPARIN SOD 5000 UNIT/0.5 ML CARP SQ SCH ×2 (09:37→21:20)
--- NOTE | 2018-03-31 09:40 | Pain Management Consultation ---
Pain Management Consultation Date of Consultation Mar 31, 2018. 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 Patient does have multiple comorbidities and is not a candidate for vascular interventions. She states that the abdominal pain has been ongoing for 1 month. There is a constant aching pain in the right lower abdomen with intermittent sharp stabbing pain. When she experiences the severe stabbing pain , she reports associated nausea and vomiting. Patient denies any radiation of pain. Pain is rated 2/10 at its best and 8/10 at its worst. No aggravating factors. She has used Morphine 4mg IV typically once a day which does help the severe episodes of pain. Patient has been experiencing abdominal bloating and constipation. Last bowel movement was on 03/26. No diarrhea, urinary sx, flank pain. Case discussed with Dr. Neva Velazco Past Medical/Surgical History (1) Hypokalemia (2) Hyponatremia (3) NSTEMI (non-ST elevation myocardial infarction) (4) Mesenteric artery stenosis (5) Kidney disease (6) H/O emphysema Family History Heart disease Social / Work History Smokeless Tobacco Use: No Alcohol Use: none Drug Use: none Marital Status: Housing Status: lives with family Occupation: retired Allergies Coded Allergies: Adhesives (Verified Allergy, Intermediate, red, irritated skin, 03/21/18) Medications Current Inpatient Medications Medications (Trade) Dose Ordered Sig/Archana Route Start Time Stop Time Status Last Admin Dose Admin Hydralazine HCl (HydrALAZINE INJ) 10 mg Q4H PRN IV. 03/25/18 21:45 04/24/18 21:44 03/31/18 03:43 10 MG Acetaminophen (Tylenol Tab) 650 mg Q4H PRN PO 03/25/18 23:30 04/24/18 23:29 03/28/18 21:23 650 MG Albuterol (Ventolin Hfa Inhaler) 200 puffs DAILY PRN INH 03/25/18 23:30 04/24/18 23:29 Baclofen (Lioresal Tab) 5 mg TID PO 03/26/18 09:00 04/25/18 08:59 03/30/18 20:24 5 MG Clopidogrel Bisulfate (plAVix TAB) 75 mg DAILY PO 03/26/18 09:00 04/25/18 08:59 03/30/18 08:02 75 MG Docusate Sodium (coLACE CAP) 100 mg BID PO 03/26/18 09:00 04/25/18 08:59 03/30/18 20:23 100 MG Escitalopram Oxalate (Lexapro Tab) 10 mg DAILY PO 03/26/18 09:00 04/25/18 08:59 03/30/18 08:00 10 MG Pravastatin Sodium (Pravachol Tab) 10 mg HS PO 03/26/18 21:00 04/25/18 20:59 03/30/18 20:23 10 MG Senna (Senokot Tab) 17.2 mg HS PO 03/26/18 21:00 04/25/18 20:59 03/30/18 20:25 17.2 MG Trazodone HCl (Desyrel Tab) 75 mg HS PO 03/26/18 21:00 04/25/18 20:59 03/30/18 20:25 75 MG Ondansetron HCl (Zofran Inj) 4 mg Q6H PRN IV 03/25/18 23:45 04/24/18 23:44 03/28/18 00:10 4 MG Morphine Sulfate (MoRPHine SULFATE INJ) 4 mg Q4 PRN IV 03/26/18 11:45 04/09/18 11:44 03/31/18 04:06 4 MG Morphine Sulfate (MoRPHine SULFATE INJ) 2 mg Q4 PRN IV 03/26/18 11:45 04/09/18 11:44 03/29/18 10:48 2 MG Potassium Chloride/Sodium Chloride 1,000 ml @ 80 mls/hr [id number] IV 03/26/18 11:45 04/25/18 11:44 03/31/18 04:44 80 MLS/HR Heparin Sodium (Porcine) (Heparin Sq 5000 Unit/0.5ml) 5,000 unit Q12 SQ 03/27/18 09:00 04/26/18 08:59 03/30/18 20:27 5,000 UNIT Nicotine (Nicoderm Cq 21MG Patch) 1 patch QAM TD 03/27/18 09:00 04/26/18 08:59 03/30/18 08:03 1 PATCH Miscellaneous (Remove Nicoderm Patch) 1 ea HS N/A 03/27/18 21:00 04/26/18 20:59 03/30/18 20:31 1 EA Lisinopril (Zestril Tab) 10 mg QAM PO 03/30/18 09:00 04/29/18 08:59 03/30/18 08:02 10 MG Magnesium Hydroxide (Milk Of Magnesia Susp) 30 ml Q6H PRN PO 03/29/18 09:15 04/28/18 09:14 03/29/18 20:39 30 ML Lorazepam (Ativan Tab) 0.5 mg BID PRN PO 03/29/18 15:00 04/28/18 14:59 03/30/18 20:35 0.5 MG Review of Systems Constitutional: Negative for fever, chills, sweats Eyes: Negative for eye pain, photophobia, drainage Ear, nose, mouth, throat: Negative for ear pain, nasal congestion, mouth lesions , change in voice Respiratory: + chronic SOB and non productive cough. Cardiovascular: Negative for chest pain, palpitations, calf pain Gastrointestinal: + RLQ abdominal pain, constipation, and bloating. Genitourinary: Negative for dysuria, urinary incontinence, urinary urgency Musculoskeletal: Negative for deformities Integumentary: Negative for nail changes, skin yellowing, pruritus Neurological: Negative for abnormal speech, seizure type activity Physical Exam Height & Weight: Height 5 feet, 4.00 inches. Weight 47.500 (Kilograms) 104 (Pounds) Last Vital Signs Documentation Date Time Temp Pulse Resp B/P (MAP) Pulse Ox O2 Delivery O2 Flow Rate FiO2 03/31/18 06:56 36.8 88 17 128/66 (86) 91 Room Air Exam: GENERAL: This is an 87 y/o white female that appears her stated age. Speech and cognition is intact. Mood and affect is appropriate. She is thin and frail appearing. Patient does not appear in any acute distress. HEAD: Normocephalic; atraumatic. CHEST: Regular chest respiration and excursion. ABDOMEN: Abdomen is distended; non-tender to palpation. No peritoneal signs. No CVA tenderness bilaterally. EXTREMITIES: Using extremities appropriately. NEURO: CN II-XII grossly intact with no focal deficits noted. SKIN: No lesions, erythema, or rashes noted. Laboratory Laboratory Results (Last CBC): 7/5/18 06:[address] SCAN OF THE ABDOMEN AND PELVIS WITH IV CONTRAST CLINICAL HISTORY: Right lower quadrant abdominal pain. COMPARISON STUDY: Abdominal CT dated 03/21/2018 and 10/21/2017. TECHNIQUE: Following the IV administration of 116 cc of Optiray 320, CT scan of the abdomen and pelvis is performed from the lung bases to the proximal femora. Images are reviewed in the axial, sagittal, and coronal planes. IV contrast was administered without complication. A dose lowering technique was utilized adhering to the principles of ALARA. CT DOSE: 232.30 mGy.cm FINDINGS: Lung bases: The heart is mildly enlarged and there is trace pericardial fluid. There are coronary artery calcifications. There are small pleural effusions with bibasilar atelectasis. These have increased in size from 03/21/2018. There is a tiny hiatal hernia. Liver: The contrast-enhanced liver is normal in size, contour, and attenuation. There is moderate intrahepatic biliary ductal dilatation, similar to previous and likely related to previous cholecystectomy. The hepatic veins and portal veins are patent. Gallbladder: Surgically absent noting clips in the gallbladder fossa. Spleen: Normal in size and attenuation. Pancreas: Moderately atrophic and grossly unremarkable. Adrenal glands: Bilateral low-attenuation adrenal nodules are unchanged from previous and measure up to 2.0 cm. These likely represent adenomas but cannot be definitively characterized due to the presence of IV contrast. Kidneys: The contrast enhanced kidneys demonstrate cortical atrophy and are without hydronephrosis. The kidneys enhance symmetrically. Numerous subcentimeter cortical hypodensities likely represent cysts but are too small for definitive characterization. A punctate nonobstructing calculus is seen in the left upper pole. Abdominal vasculature: The abdominal aorta is normal in course and caliber noting advanced atherosclerotic calcification. There is high-grade stenosis to near complete occlusion of the superior mesenteric artery seen on image #107. Bowel: There is mild to moderate colonic diverticulosis without CT evidence of acute diverticulitis. There is moderate colonic fecal retention. No bowel obstruction is seen. The appendix is not identified and reported surgically absent. Peritoneum: There is no intraperitoneal free air or abdominal ascites. Lymphadenopathy: None. Pelvic viscera: The bladder, uterus, and adnexa are normal as visualized. Skeletal structures: The skeletal structures are osteopenic. There is moderate lumbosacral spondylosis and scoliosis. There is a moderate to severe compression fracture of T12. Paravertebral edema is noted at this level. Mild chronic superior endplate compression deformities are noted in the L4 and L5. No lytic or blastic lesions are seen. IMPRESSION: 1. There are no acute infectious or inflammatory findings in the abdomen or pelvis. 2. There is a moderate to severe compression fracture of T12. This is new from 10/21/2017 and appears acute to subacute. 3. There are small pleural effusions. These have increased in size from 03/21/2018. 4. Mild cardiac enlargement and advanced atherosclerotic disease. 5. Moderate constipation. 6. There is mild to moderate colonic diverticulosis without CT evidence of acute diverticulitis. 7. Additional findings as above. Electronically signed by: Anish Marquez M.D. 03/25/2018 10:26 PM Dictated Date/Time: 03/25/2018 10:15 PM Opioid Risk Assessment Risk assessment performed, minimal risk identified Assessment 1. 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 COPD 3. Chronically on Plavix 4. History of Myocardial infarction Recommendations 1. Initiate Fentanyl Patch 12mcg/hr. 2. Hydrocodone 5/325mg PO x 8 hours ordered. 3. Hold on injections for now. Pain is located in the right lower quadrant of abdomen so a Celiac Plexus Nerve Block would not be effective. A superior hypogastric nerve block could be considered but Plavix would need held for 7 days and given that the pain is from mesenteric stenosis, it would be high risk. 4. Relistor SQ was ordered to help with constipation in patient. If effective , recommend Relistor PO for outpatient.
[2018-03-31] MEDS: NICOTINE 21 MG/24 HR TDSY TD SCH (09:48)
[2018-03-31] MEDS: METHYLNALTREXONE BROMIDE INJ 12 MG/0.6 ML SYR SQ SCH (12:34)
[2018-03-31] MEDS ORDERED: NURSING VERBAL MED ORDER ONE (13:30)
--- NOTE | 2018-03-31 13:57 | Palliative Care Progress Note ---
Palliative Care Progress Note Date of Service Mar 31, 2018. Subjective Pt evaluation today including: conversation w/ patient, physical exam, chart review, conversation w/ [facility] consultant (Dr. Adams) Pain: 03/06 Patient is awake, alert and oriented. She still has abdominal pain but it's "better." Still 03/06, morphine helps and fentanyl patch started today by pain management. Patient states she wants to go home with hospice. She defers all decision making to her daughter, Bailey, who I called and left a message for. Case management following as well. Review of Systems Constitutional: + weakness ENT: No trouble swallowing Respiratory: + dyspnea on exertion, No cough Cardiac: No chest pain, No edema Abdomen: + pain, No nausea, No vomiting Female : No problem reported Psychiatric: + anxiety, No depression symptoms Objective Vital Signs Date Time Temp Pulse Resp B/P (MAP) Pulse Ox O2 Delivery O2 Flow Rate FiO2 03/31/18 13:16 36.9 86 26 175/64 (101) 94 Room Air 173/109 (130) 03/31/18 12:23 Room Air 03/31/18 08:00 Room Air 03/31/18 06:56 36.8 88 17 128/66 (86) 91 Room Air 03/31/18 04:45 138/73 (94) 03/31/18 04:00 Room Air 03/31/18 03:26 37.1 99 20 201/86 (124) 93 Room Air 03/31/18 00:26 37.3 91 15 174/73 (106) 92 Room Air 03/30/18 23:59 Room Air 03/30/18 20:00 Room Air 03/30/18 19:03 36.6 100 20 141/75 (97) 91 Room Air 03/30/18 18:39 182/84 (116) 03/30/18 16:24 Room Air Physical Exam General Appearance: no apparent distress, + cachetic, + thin ENT: hearing grossly normal Neck: supple, no JVD Respiratory/Chest: no respiratory distress, no accessory muscle use, + decreased breath sounds Cardiovascular: regular rate, rhythm, no edema, + normal peripheral pulses Abdomen: normal bowel sounds, + tenderness Neurologic/Psychiatric: alert, normal mood/affect, oriented x 3 Laboratory Results Last 24 Hours Test 03/30/18 17:09 03/31/18 06:58 White Blood Count 11.28 K/uL 9.27 K/uL Red Blood Count 3.77 M/uL 3.48 M/uL Hemoglobin 11.3 g/dL 10.4 g/dL Hematocrit 34.0 % 31.0 % Mean Corpuscular Volume 90.2 fL 89.1 fL Mean Corpuscular Hemoglobin 30.0 pg 29.9 pg Mean Corpuscular Hemoglobin Concent 33.2 g/dl 33.5 g/dl RDW Standard Deviation 49.3 fL 48.8 fL RDW Coefficient of Variation 15.1 % 15.1 % Platelet Count 371 K/uL 301 K/uL Mean Platelet Volume 8.7 fL 8.7 fL Sodium Level 128 mmol/L 130 mmol/L Potassium Level 4.1 mmol/L 3.9 mmol/L Chloride Level 92 mmol/L 96 mmol/L Carbon Dioxide Level 27 mmol/L 27 mmol/L Anion Gap 9.0 mmol/L 7.0 mmol/L Blood Urea Nitrogen 7 mg/dl 5 mg/dl Creatinine 0.76 mg/dl 0.59 mg/dl Est Creatinine Clear Calc Drug Dose 39.2 ml/min 50.4 ml/min Estimated GFR () 81.7 95.5 Estimated GFR (Non- 70.5 82.4 BUN/Creatinine Ratio 8.6 8.9 Random Glucose 113 mg/dl 99 mg/dl Calcium Level 8.6 mg/dl 7.7 mg/dl Lactic Acid Level 0.7 mmol/L Phosphorus Level 3.2 mg/dl Magnesium Level 2.0 mg/dl Assessment and Plan Problem list: Abdominal pain 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 -Discontinue IV morphine and norco. -Start Roxanol 10mg PO/SL Q3h PRN pain or SOB in anticipation of going home. -Would recommend increasing lorazepam 0.5mg PO/SL to Q4h PRN anxiety/agitation. -Call out to patient's daughter to talk about home with hospice. Patient will need 24 hour care, uncertain of family's capabilities. Total time spent 35 minutes with >50% of time spent at bedside with patient discussing goals of care as well as discussing with MD about plan. Palliative Performance Scale: 30 % Discharge planning: home with Hospice
[2018-03-31] MEDS: LORAZEPAM 0.5 MG TAB PO PRN (14:43)
[2018-03-31] MEDS: ALBUTEROL HFA 8 GM INHALER INH PRN (15:47)
[2018-03-31] MEDS: CHECK FENTANYL PATCH PLACEMENT SCH ×2 (15:49→23:48)
[2018-03-31] MEDS ORDERED: TRAZODONE HCL 100 MG TAB PO SCH (21:00)
[2018-03-31] MEDS: SENNA 8.6 MG TAB PO SCH (21:18)
[2018-03-31] MEDS: PRAVASTATIN SOD 10 MG TAB PO SCH (21:19)
--- NOTE | 2018-03-31 23:34 | Progress Note ---
Subjective Date of Service: Mar 31, 2018. Subjective Pt evaluation today including: conversation w/ patient, conversation w/ family , physical exam Patient reports no bowel movement. She reports her pain is better controlled today. Patient after meeting with family reports she would like to forego surgery and go the comfort route. Patient wants to go home. Problem List Medical Problems: (1) Back pain Status: Acute (2) Chest pain Status: Acute (3) Closed head injury Status: Acute (4) Compression fracture of fifth lumbar vertebra with routine healing Status: Acute (5) Compression fracture of fourth lumbar vertebra with routinehealing Status: Acute (6) Compression fracture of thoracic vertebra Status: Acute (7) Constipation Status: Acute (8) Dehydration Status: Acute (9) Encounter for smoking cessation counseling Status: Acute (10) Facial droop Status: Acute (11) Fall Status: Acute (12) Heart murmur Status: Acute (13) Hypokalemia Status: Acute (14) Hyponatremia Status: Acute (15) Hyponatremia Status: Acute (16) Nausea & vomiting Status: Acute (17) Open wound of skin Status: Acute (18) Ptosis Status: Acute (19) Scalp laceration Status: Acute (20) Stroke-like symptoms Status: Acute Review of Systems Constitutional: No fever, No chills Eyes: No worsening of vision ENT: No hearing loss Cardiac: No chest pain Abdomen: + pain Musculoskeletal: No joint pain Neurologic: No memory loss Psychiatric: No depression symptoms Heme: No abnormal bleeding/bruising Endo: + fatigue Skin: No rash All Other Systems: Reviewed and Negative Objective Vital Signs Date Time Temp Pulse Resp B/P (MAP) Pulse Ox O2 Delivery O2 Flow Rate FiO2 03/31/18 23:00 36.6 70 16 192/72 (112) 99 Room Air 03/31/18 20:13 36.5 58 18 136/76 (96) 98 Room Air 03/31/18 20:00 Room Air 03/31/18 19:21 36.4 93 20 168/77 (107) 93 03/31/18 16:16 155/63 (93) 03/31/18 16:11 36.6 82 20 176/71 (106) 94 03/31/18 16:00 Room Air 03/31/18 14:36 171/74 (106) 03/31/18 13:16 36.9 86 26 175/64 (101) 94 Room Air 173/109 (130) 03/31/18 12:23 Room Air 03/31/18 08:00 Room Air 03/31/18 06:56 36.8 88 17 128/66 (86) 91 Room Air 03/31/18 04:45 138/73 (94) 03/31/18 04:00 Room Air 03/31/18 03:26 37.1 99 20 201/86 (124) 93 Room Air 03/31/18 00:26 37.3 91 15 174/73 (106) 92 Room Air 03/30/18 23:59 Room Air Physical Exam Comments: General Appearance: no apparent distress, + thin Eyes: normal inspection, EOMI, sclerae normal ENT: normal ENT inspection, hearing grossly normal, pharynx normal Neck: supple, no adenopathy, no JVD, trachea midline Respiratory/Chest: chest non-tender, lungs clear, normal breath sounds, no respiratory distress, no accessory muscle use Cardiovascular: regular rate, rhythm, no edema, no gallop, no JVD, no murmur Abdomen: normal bowel sounds, right side is distended, soft, no organomegaly, + tenderness (mild TTP in RLQ, no rigidity, no rebound) Extremities: normal range of motion, non-tender, normal inspection, no pedal edema, no calf tenderness, normal capillary refill, pelvis stable Neurologic/Psychiatric: 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 II-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 nml as tested, no motor/sensory deficits, alert, normal mood/affect, oriented x 3 Skin: normal color, warm/dry, no rash Laboratory Results Last 24 Hours Test 03/31/18 06:58 White Blood Count 9.27 K/uL Red Blood Count 3.48 M/uL Hemoglobin 10.4 g/dL Hematocrit 31.0 % Mean Corpuscular Volume 89.1 fL Mean Corpuscular Hemoglobin 29.9 pg Mean Corpuscular Hemoglobin Concent 33.5 g/dl RDW Standard Deviation 48.8 fL RDW Coefficient of Variation 15.1 % Platelet Count 301 K/uL Mean Platelet Volume 8.7 fL Sodium Level 130 mmol/L Potassium Level 3.9 mmol/L Chloride Level 96 mmol/L Carbon Dioxide Level 27 mmol/L Anion Gap 7.0 mmol/L Blood Urea Nitrogen 5 mg/dl Creatinine 0.59 mg/dl Est Creatinine Clear Calc Drug Dose 50.4 ml/min Estimated GFR () 95.5 Estimated GFR (Non- 82.4 BUN/Creatinine Ratio 8.9 Random Glucose 99 mg/dl Lactic Acid Level 0.7 mmol/L Calcium Level 7.7 mg/dl Phosphorus Level 3.2 mg/dl Magnesium Level 2.0 mg/dl Assessment and Plan 87 yo female who presents with abdominal pain, poor oral intake for a few days, constipation, hyponatremia and generalized weakness - Abdominal pain, 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 WBC is elevated. D/W vascular, she deem surgery is too high risk as she would require bypass lactic acid normal at 1.1, there was no evidence of bowel ischemia on CT scan Pain may be worse from distention from possible constipation. will give medicine to help promote BM. Added milk of Magnesia. will add lactulose today. D/W patient, she at this time does not want intervention done. 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 After family meeting, patient is opting for comfort care with transitioning to home hospice. - Elevated troponin type II NSTEMI, demand ischemia, poor intake, dehydrated, hypertension patient denies chest pain/pressure, no EKG changes troponin leilani to 0.3, trending down at 0.2 yesterday continue Plavix, Nitro patch, Pravachol no further work up per cardiology, can be discharged from cardiac perspective - Hyponatremia, due to dehydration very limited oral intake last few days due to abdominal pain Na up slightly to 133 today, noted to have low plasma osmolality on admission treat with NSS + 20mEq of KCl at 80cc/hr continue fluids today since PO intake still suboptimal - Hypokalemia: K up to 4.1 resolved - Anxiety-- Continue Lexapro 10 mg p.o. daily, lorazepam 0.5 mg p.o. twice daily, and trazodone 75 mg p.o. at bedtime. Muscle spasm-- Continue baclofen 5 mg p.o. 3 times daily. recent fall with scalp laceration: martin removed at bedside today Spent 65 minutes on this case, due to family meeting. Discharge planning: home with Hospice
[2018-04-01] VITALS (9 sets, daily range): BP systolic 127–188; BP diastolic 61–76; PULSE 72–92; TEMP 36.4–37; O2SAT 92–96
[2018-04-01] MEDS: NSS + 20MEQ KCL 1000ML 1,000 ML IV SCH ×2 (04:37→17:47)
[2018-04-01] MEDS: HydrALAZINE HCL 20 MG/ML VIAL IV. PRN (04:37)
[2018-04-01] MEDS: DOCUSATE SODIUM 100 MG CAP PO SCH ×2 (08:06→19:57)
[2018-04-01] MEDS: BACLOFEN 10 MG TAB PO SCH ×3 (08:06→19:59)
[2018-04-01] MEDS: ESCITALOPRAM OXALATE 10 MG TAB PO SCH (08:06)
[2018-04-01] MEDS: CLOPIDOGREL BISULFATE 75 MG TAB PO SCH (08:06)
[2018-04-01] MEDS: CHECK FENTANYL PATCH PLACEMENT SCH ×2 (08:07→16:49)
[2018-04-01] MEDS: NICOTINE 21 MG/24 HR TDSY TD SCH (08:07)
[2018-04-01] MEDS: HEPARIN SOD 5000 UNIT/0.5 ML CARP SQ SCH ×2 (08:13→20:06)
[2018-04-01] MEDS: LORAZEPAM 0.5 MG TAB PO PRN (08:17)
[2018-04-01] MEDS: LISINOPRIL 10 MG TAB PO SCH (09:22)
--- NOTE | 2018-04-01 12:04 | Palliative Care Progress Note ---
Palliative Care Progress Note Date of Service Apr 01, 2018. Subjective Pt evaluation today including: conversation w/ patient, conversation w/ family , physical exam, chart review, conversation w/ sales and leasing consultant (Dr. Adams) Pain: 2/10 PO Intake: tolerating diet Voiding: no voiding problems Patient is feeling well today, pain seems to be well-controlled. Still has periods of anxiety. Review of Systems Constitutional: + weakness, No fever, No chills ENT: No trouble swallowing Respiratory: + dyspnea on exertion, No cough, No wheezing, No shortness of breath Cardiac: No chest pain, No edema Abdomen: + nausea (occasional, but not recently), No pain, No vomiting Female : No problem reported Psychiatric: + anxiety, No depression symptoms Objective Vital Signs Date Time Temp Pulse Resp B/P (MAP) Pulse Ox O2 Delivery O2 Flow Rate FiO2 04/01/18 08:00 Room Air 04/01/18 06:42 36.7 83 15 161/74 (103) 95 Room Air 04/01/18 04:03 37.0 92 16 182/76 (111) 95 Room Air 04/01/18 04:00 Room Air 04/01/18 00:32 84 171/69 (103) 95 Room Air 03/31/18 23:59 Room Air 03/31/18 23:00 36.6 70 16 192/72 (112) 99 Room Air 03/31/18 20:13 36.5 58 18 136/76 (96) 98 Room Air 03/31/18 20:00 Room Air 03/31/18 19:21 36.4 93 20 168/77 (107) 93 03/31/18 16:16 155/63 (93) 03/31/18 16:11 36.6 82 20 176/71 (106) 94 03/31/18 16:00 Room Air 03/31/18 14:36 171/74 (106) 03/31/18 13:16 36.9 86 26 175/64 (101) 94 Room Air 173/109 (130) 03/31/18 12:23 Room Air Physical Exam General Appearance: no apparent distress, + thin ENT: hearing grossly normal Neck: supple, no JVD Respiratory/Chest: no respiratory distress, no accessory muscle use, + decreased breath sounds Cardiovascular: regular rate, rhythm, no edema Abdomen: normal bowel sounds, non tender, soft Neurologic/Psychiatric: alert, normal mood/affect, oriented x 3 Skin: normal color Assessment and Plan Problem list: Abdominal pain 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 -Continue Roxanol 10mg PO/SL Q3h PRN pain or SOB in anticipation of going home. -Would recommend increasing lorazepam 0.5mg PO/SL to Q4h PRN anxiety/agitation. -Met with patient, daughter and today. Plan is for home with hospice. Family can provide 24-hour care. Case management has already followed up and gave them a list of hospice agencies. Plan for discharge as soon as equipment is delivered and family is ready. Total time spent 40 minutes with >50% of time spent at bedside with patient, daughter Bailey, and patient's discussing DC planning. Collaborated with MD and nursing to discuss as well. Palliative Performance Scale: 40 % Discharge planning: home with Hospice
[2018-04-01] MEDS ORDERED: LORAZEPAM 0.5 MG TAB PO PRN (16:15)
[2018-04-01] MEDS ORDERED: NURSING VERBAL MED ORDER ONE (18:00)
[2018-04-01] MEDS: ALBUTEROL HFA 8 GM INHALER INH PRN (18:41)
[2018-04-01] MEDS ORDERED: MoRPHine SULFATE 10 MG/0.5 ML UDP PO PRN (19:00)
[2018-04-01] MEDS ORDERED: ALBUTEROL HFA 8 GM INHALER INH PRN (19:45)
[2018-04-01] MEDS: MoRPHine SULFATE 10 MG/0.5 ML UDP PO PRN (19:55)
[2018-04-01] MEDS: PRAVASTATIN SOD 10 MG TAB PO SCH (19:57)
[2018-04-01] MEDS: TRAZODONE HCL 50 MG TAB PO SCH (19:58)
[2018-04-01] MEDS: SENNA 8.6 MG TAB PO SCH (19:59)
--- NOTE | 2018-04-01 22:40 | Progress Note ---
Subjective Date of Service: Apr 01, 2018. Subjective Pt evaluation today including: conversation w/ patient, physical exam Patient reports no significant change in her symptoms today. Patient reports having anxiety. Problem List Medical Problems: (1) Back pain Status: Acute (2) Chest pain Status: Acute (3) Closed head injury Status: Acute (4) Compression fracture of fifth lumbar vertebra with routine healing Status: Acute (5) Compression fracture of fourth lumbar vertebra with routinehealing Status: Acute (6) Compression fracture of thoracic vertebra Status: Acute (7) Constipation Status: Acute (8) Dehydration Status: Acute (9) Encounter for smoking cessation counseling Status: Acute (10) Facial droop Status: Acute (11) Fall Status: Acute (12) Heart murmur Status: Acute (13) Hypokalemia Status: Acute (14) Hyponatremia Status: Acute (15) Hyponatremia Status: Acute (16) Nausea & vomiting Status: Acute (17) Open wound of skin Status: Acute (18) Ptosis Status: Acute (19) Scalp laceration Status: Acute (20) Stroke-like symptoms Status: Acute Review of Systems Constitutional: No fever, No chills Eyes: No worsening of vision ENT: No hearing loss Cardiac: No chest pain Abdomen: + pain Musculoskeletal: No joint pain Neurologic: No memory loss Psychiatric: No depression symptoms Heme: No abnormal bleeding/bruising Endo: + fatigue Skin: No rash All Other Systems: Reviewed and Negative Objective Vital Signs Date Time Temp Pulse Resp B/P (MAP) Pulse Ox O2 Delivery O2 Flow Rate FiO2 04/01/18 22:33 36.5 81 28 127/68 (87) 93 04/01/18 18:42 36.7 72 40 164/72 (102) 94 Room Air 04/01/18 18:09 36.4 83 22 92 04/01/18 16:10 36.4 83 22 188/69 (108) 92 04/01/18 16:00 96 Room Air 04/01/18 12:16 36.8 83 18 149/61 (90) 96 04/01/18 12:00 Room Air 04/01/18 08:00 Room Air 04/01/18 06:42 36.7 83 15 161/74 (103) 95 Room Air 04/01/18 04:03 37.0 92 16 182/76 (111) 95 Room Air 04/01/18 04:00 Room Air 04/01/18 00:32 84 171/69 (103) 95 Room Air 03/31/18 23:59 Room Air 03/31/18 23:00 36.6 70 16 192/72 (112) 99 Room Air Physical Exam Comments: General Appearance: no apparent distress, + thin Eyes: normal inspection, EOMI, sclerae normal ENT: normal ENT inspection, hearing grossly normal, pharynx normal Neck: supple, no adenopathy, no JVD, trachea midline Respiratory/Chest: chest non-tender, lungs clear, normal breath sounds, no respiratory distress, no accessory muscle use Cardiovascular: regular rate, rhythm, no edema, no gallop, no JVD, no murmur Abdomen: normal bowel sounds, right side is distended, soft, no organomegaly, + tenderness (mild TTP in RLQ, no rigidity, no rebound) Extremities: normal range of motion, non-tender, normal inspection, no pedal edema, no calf tenderness, normal capillary refill, pelvis stable Neurologic/Psychiatric: electrolog operator II-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 WBC is elevated. D/W vascular, she deem surgery is too high risk as she would require bypass lactic acid normal at 1.1, there was no evidence of bowel ischemia on CT scan Pain may be worse from distention from possible constipation. will give medicine to help promote BM. Added milk of Magnesia. added lactulose yesterday. Patient refused lactulose today. D/W patient, she at this time does not want intervention done. 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 After family meeting, patient is opting for comfort care with transitioning to home hospice. Likely discharge tomorrow. - Elevated troponin type II NSTEMI, demand ischemia, poor intake, dehydrated, hypertension patient denies chest pain/pressure, no EKG changes troponin leilani to 0.3, trending down at 0.2 yesterday continue Plavix, Nitro patch, Pravachol no further work up per cardiology, can be discharged from cardiac perspective - Hyponatremia, due to dehydration very limited oral intake last few days due to abdominal pain Na up slightly to 133 today, noted to have low plasma osmolality on admission treat with NSS + 20mEq of KCl at 80cc/hr continue fluids today since PO intake still suboptimal - Hypokalemia: K up to 4.1 resolved - Anxiety-- Continue Lexapro 10 mg p.o. daily, lorazepam 0.5 mg p.o. twice daily, and trazodone 75 mg p.o. at bedtime. Muscle spasm-- Continue baclofen 5 mg p.o. 3 times daily. recent fall with scalp laceration: martin removed at bedside today Discharge planning: home with Hospice
[2018-04-02] MEDS: CHECK FENTANYL PATCH PLACEMENT SCH ×2 (00:06→07:55)
[2018-04-02 07:08] VITALS: BP 189/69; PULSE 77; TEMP 36.4; O2SAT 91
[2018-04-02] MEDS: MoRPHine SULFATE 10 MG/0.5 ML UDP PO PRN ×3 (07:59→13:04)
[2018-04-02] MEDS: DOCUSATE SODIUM 100 MG CAP PO SCH (08:00)
[2018-04-02] MEDS: ESCITALOPRAM OXALATE 10 MG TAB PO SCH (08:00)
[2018-04-02] MEDS: CLOPIDOGREL BISULFATE 75 MG TAB PO SCH (08:01)
[2018-04-02] MEDS: BACLOFEN 10 MG TAB PO SCH ×2 (08:01→14:07)
[2018-04-02] MEDS: LISINOPRIL 10 MG TAB PO SCH (08:02)
[2018-04-02] MEDS: HEPARIN SOD 5000 UNIT/0.5 ML CARP SQ SCH (08:02)
[2018-04-02] MEDS: NICOTINE 21 MG/24 HR TDSY TD SCH (08:04)
[2018-04-02] MEDS: METHYLNALTREXONE BROMIDE INJ 12 MG/0.6 ML SYR SQ SCH (11:13)
[2018-04-02 11:17] VITALS: BP 153/59; PULSE 76
[2018-04-02] MEDS ORDERED: LSN10 PO (11:47)
[2018-04-02] MEDS ORDERED: MOMLX PO (11:47)
[2018-04-02] MEDS ORDERED: RLSI SQ (11:47)
--- NOTE | 2018-04-02 11:54 | Discharge Instructions ---
Discharge Instructions Date of Service Apr 02, 2018. Admission Reason for Admission: Mesenteris Artery Stenosis, Nstemi Discharge Discharge Diagnosis / Problem: Mesenteric artery stenosis Discharge Goals Goal(s): Decrease discomfort Activity Recommendations Activity Limitations: as noted below Lifting Limitations: gradually increase as tolerated . Instructions / Follow-Up Instructions / Follow-Up Discharge on home hospice Current Hospital Diet Patient's current hospital diet: Low Fiber Diet, Low Fat Diet Discharge Diet Recommended Diet: Low Fiber Diet, Low Fat Diet Pending Studies Studies pending at discharge: no Laboratory Results Lipid Panel Test 01/25/18 09:20 Range/Units Triglycerides Level 122 0-150 mg/dl Cholesterol Level 208 H 0-200 mg/dl HDL Cholesterol 69 mg/dl Cholesterol/HDL Ratio 3.0 LDL Cholesterol, Calculated 115 mg/dl Medical Emergencies . Who to Call and When: Medical Emergencies: If at any time you feel your situation is an emergency, please call 911 immediately. . Non-Emergent Contact Non-Emergency issues call your: Primary Care Provider Call Non-Emergent contact if: you have any medication questions . . "Provider Documentation" section prepared by Antonino Adams. .
[2018-04-02] MEDS ORDERED: RXNS10 PO (12:04)
[2018-04-02] MEDS ORDERED: ATV5 PO (12:04)
[2018-04-02] MEDS ORDERED: DRGTP12 TD (12:04)
[2018-04-02 12:46] VITALS: BP 153/59; PULSE 76; TEMP 36.4; O2SAT 91
[2018-04-02] MEDS ORDERED: NURSING VERBAL MED ORDER ONE (13:00)
[2018-04-03] MEDS ORDERED: FENTANYL PATCH REMOVE & WASTE SCH (08:59)
--- NOTE | 2018-04-10 20:46 | Discharge Summary ---
Discharge Summary Date of Service Apr 02, 2018. 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 Immunizations: Have You Had Influenza Vaccine: Unknown History of Tetanus Vaccine?: Unknown History of Pneumococcal: Unknown Medication Reconciliation New Medications: Fentanyl (Fentanyl) 12 Mcg Tdsy 12 MCG TD Q72H for 30 Days, #10 Lisinopril (Zestril) 10 Mg Tab 10 MG PO QAM for 30 Days, #30 TAB Lorazepam (Lorazepam) 0.5 Mg Tab 0.5 MG PO Q4H PRN for Anxiety for 10 Days, #40 TAB Magnesium Hydroxide (Milk of Magnesia) 30 Ml Susp 30 ML PO Q6H PRN for constipation for 30 Days, #120 DOSE Methylnaltrexone [place] (Relistor) 12 Mg/0.6 Ml Inj 8 MG SQ Q48H for 30 Days, #15 DOSE Morphine Sulfate (Morphine Sulfate) 10 Mg/0.5 Ml Soln 10 MG PO Q3H PRN for PAIN/SOB for 10 Days, #80 DOSE Continued Medications: Acetaminophen (Tylenol) 500 Mg Tab 500 MG PO q4-6h PRN for Pain, TAB Albuterol Hfa (Ventolin Hfa) 200 Puffs/29436 Mcg Aers 1 PUFF INH DAILY PRN for SOB/Wheezing Alendronate/Cholecalciferol (Fosamax+D 70MG/2800 Iu) 70 Mg Tab 1 TABLET PO WK, TAB Baclofen (Baclofen) 10 Mg Tab 5 MG PO TID Clopidogrel Bisulfate (Clopidogrel) 75 Mg Tab 75 MG PO DAILY Docusate Sodium (Colace) 100 Mg Cap 1 CAP PO BID for 30 Days, #60 CAP Ergocalciferol (Vitamin D 71211 Unit) 50,000 Unit Cap 98846 UNIT PO WK, CAP PT never Started per [employer]CRIPT Escitalopram Oxalate (Escitalopram Oxalate) 10 Mg Tab 10 MG PO DAILY Famotidine (Famotidine) 20 Mg Tab 20 MG PO BID PRN for REFLUX Metoclopramide (Reglan) 10 Mg Tab 10 MG PO Q6H PRN for Nausea, #6 TAB NAUSEA Potassium Chloride Microencaps (Potassium Chloride Er) 20 Meq Tab 20 MEQ PO DAILY Pravastatin Sodium (Pravastatin Sodium) 10 Mg Tab 10 MG PO HS Senna (Senokot) 8.6 Mg Tab 1 TAB PO HS, TAB Trazodone HCl (Trazodone HCl) 150 Mg Tab 75 MG PO HS Discontinued Medications: Lorazepam (Ativan) 0.5 Mg Tab 0.5 MG PO BID, TAB Discharge Exam Review of Systems Constitutional: No fever, No chills Eyes: No worsening of vision ENT: No hearing loss Cardiac: No chest pain Abdomen: + pain Musculoskeletal: No joint pain Neurologic: No memory loss Psychiatric: No depression symptoms Heme: No abnormal bleeding/bruising Endo: + fatigue Skin: No rash All Other Systems: Reviewed and Negative Physical Exam Comments: General Appearance: no apparent distress, + thin Eyes: normal inspection, EOMI, sclerae normal ENT: normal ENT inspection, hearing grossly normal, pharynx normal Neck: supple, no adenopathy, no JVD, trachea midline Respiratory/Chest: chest non-tender, lungs clear, normal breath sounds, no respiratory distress, no accessory muscle use Cardiovascular: regular rate, rhythm, no edema, no gallop, no JVD, no murmur Abdomen: normal bowel sounds, right side is distended, soft, no organomegaly, + tenderness (mild TTP in RLQ, no rigidity, no rebound) Extremities: normal range of motion, non-tender, normal inspection, no pedal edema, no calf tenderness, normal capillary refill, pelvis stable Neurologic/Psychiatric: recreation activities coordinator II-XII nml as tested, no motor/sensory deficits, alert, normal mood/affect, oriented x 3 Skin: normal color, warm/dry, no rash Hospital Course 87 yo female who presents with abdominal pain, poor oral intake for a few days, constipation, hyponatremia and generalized weakness - Abdominal pain, 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 WBC is elevated. D/W vascular, she deem surgery is too high risk as she would require bypass lactic acid normal at 1.1, there was no evidence of bowel ischemia on CT scan Pain may be worse from distention from possible constipation. will give medicine to help promote BM. Added milk of Magnesia. added lactulose yesterday. Patient refused lactulose today. D/W patient, she at this time does not want intervention done. 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 After family meeting, patient is opting for comfort care with transitioning to home hospice. Patient will be discharged on home hospice - Elevated troponin type II NSTEMI, demand ischemia, poor intake, dehydrated, hypertension patient denies chest pain/pressure, no EKG changes troponin leilani to 0.3, trending down at 0.2 yesterday continue Plavix, Nitro patch, Pravachol no further work up per cardiology, can be discharged from cardiac perspective - Hyponatremia, due to dehydration very limited oral intake last few days due to abdominal pain Na improved to 133, noted to have low plasma osmolality on admission treated with NSS + 20mEq of KCl at 80cc/hr continue fluids today since PO intake still suboptimal - Hypokalemia: K up to 4.1 resolved - Anxiety-- Continue Lexapro 10 mg p.o. daily, lorazepam 0.5 mg p.o. twice daily, and trazodone 75 mg p.o. at bedtime. Muscle spasm-- Continue baclofen 5 mg p.o. 3 times daily. recent fall with scalp laceration: martin removed at bedside today Total Time Spent: Greater than 30 minutes This includes examination of the patient, discharge planning, medication reconciliation, and communication with other providers. Discharge Instructions Please refer to the electronic Patient Visit Report (Discharge Instructions) for additional information. Follow-Up Discharge on home hospice Additional Copies To Angelika Rowan
== END 2018-04-02 15:15 | disposition hospice, home (50) | DRG 393 ==
LOC: C.EDB 18:05 → C.2T 23:28 → ENRESERV 23:46 → C.MS2W 04-01 18:29
PROVIDERS: ADMIT Hospitalist; ATTEND Internal Medicine Sports Medicine
DX: K55.1 Chronic vascular disorders of intestine (principal); I21.A1 Myocardial infarction type 2; E87.1 Hypo-osmolality and hyponatremia; N18.9 Chronic kidney disease, unspecified; I25.2 Old myocardial infarction; Z86.73 Personal history of transient ischemic attack (TIA), and cerebral infarction without residual deficits; F17.200 Nicotine dependence, unspecified, uncomplicated; E87.6 Hypokalemia; E78.5 Hyperlipidemia, unspecified; J44.9 Chronic obstructive pulmonary disease, unspecified; M81.0 Age-related osteoporosis without current pathological fracture; Z79.02 Long term (current) use of antithrombotics/antiplatelets; K55.069 Acute infarction of intestine, part and extent unspecified; E86.0 Dehydration; F41.9 Anxiety disorder, unspecified; M62.838 Other muscle spasm